=== PATIENT | male | born 1965 | race Caucasian/White ===

== ENCOUNTER 2020-07-20 13:52 | Inpatient (IN) | payer OTHER ==
[2020-07-20] MEDS ORDERED: NA CHLORIDE 0.9% 3,000 ML ONE (15:13)
[2020-07-20] MEDS ORDERED: dexAMETHasone 10 MG/ML VIAL ONE (15:13)
[2020-07-20] MEDS ORDERED: LEVALBUTEROL 1.25 MG/3 ML NEB ONE (15:13)
[2020-07-20] MEDS ORDERED: NA CHLORIDE 0.9% 500 ML ONE (15:13)
--- NOTE | 2020-07-20 15:38 | RAD REPORT ---
EXAM DESCRIPTION: RAD - Chest Single View - 07/20/2020 3:13 pm CLINICAL HISTORY: SOB COMPARISON: August 2010 TECHNIQUE: AP portable chest image was obtained 07/20/2020 3:13 pm . FINDINGS: No focal mass or consolidations seen. Lung base interstitial pattern is increased over the comparison. This could be interstitial edema, infiltrate or progressive fibrotic lung disease over t he long interval since 2011 comparison. Hilar regions are not clearly different. Heart and vasculatur e are normal. No measurable pleural effusion and no pneumothorax. No acute bony abnormality seen. No acute aortic findings suspected. IMPRESSION: Bilateral increased interstitial opacification compared to 2011. Given the long interval, current findings could represent acute interstitial edema, acute interstitia l infiltrate, progressive fibrotic change or a combination.
[2020-07-20 16:04] LABS: Absolute Lymphocytes (CBC) 2.7 K/uL (0.7-4.9); Basophils % 1.2 % (0-1.3); Hematocrit 47.2 % (39.6-49.0); Lymphocytes % 20.2 % (15.3-44.8); MPV 10.1 fL (7.6-11.3); RBC Red Blood Cell Count 5.08 M/uL (4.33-5.43)
[2020-07-20 16:17] LABS: Urine Blood 2+ (Negative); Urine Glucose 3+ (Negative); Urine Protein 2+ (Negative); Urine pH 6.5 (5.0-7.0)
[2020-07-20 16:20] LABS: Protime INR 0.97
[2020-07-20 16:37] LABS: ALT/SGPT 34 U/L (12-78); AST/SGOT 23 U/L (15-37); Albumin 2.7 g/dL (3.4-5.0); Alkaline Phosphatase 164 U/L (45-117); Amylase 38 U/L (25-115); BUN Blood Urea Nitrogen 14 mg/dL (7-18); Bicarbonate 32 mmol/L (21-32); Bilirubin Direct < 0.1 mg/dL (0-0.2); Bilirubin Total 0.4 mg/dL (0.2-1.0); CKMB Creatine Kinase MB 2.2 ng/mL (1.0-3.6); Creatine Phosphokinase 77 U/L (39-308); Lipase 86 U/L (73-393); Potassium 4.2 mmol/L (3.5-5.1); Protein, Total 7.9 g/dL (6.4-8.2); Sodium Level 139 mmol/L (136-145); Troponin (Emerg Dept Use Only) 0.03 ng/mL (0.0-0.045)
[2020-07-20 16:40] LABS: Glucose Level 434 mg/dL (74-106)
[2020-07-20 17:05] LABS: Urine Bacteria <20 /HPF (NONE SEEN); Urine Mucus 1+ /HPF (NONE SEEN)
--- NOTE | 2020-07-20 18:41 | EDPHYS ---
Physician Documentation [facility] Name: Ernesto Lara Age: 55 yrs Sex: Male : 1965 Arrival Date: 07/20/2020 Time: 13:55 Bed 8 Private MD: ED Physician Momo Kang HPI: 07/20 18:32 This 55 yrs old Male presents to ER via Wheelchair with complaints of jmm Breathing Difficulty. 18:32 The patient has shortness of breath at rest. Onset: The symptoms/episode began/occurred jmm gradually, 2 week(s) ago. Duration: The symptoms are continuous. The patient's shortness of breath is aggravated by light activity, is alleviated by nothing. Associated signs and symptoms: Pertinent negatives: fever. This is a 55 year old male with a history of bronchitis that presents to the ED with complaints of shortness of breath wheezing progressively worsening over the past 2 weeks. Denies fever. . Historical: - Allergies: 14:30 No Known Allergies; aa5 - Home Meds: 14:30 None [Active]; aa5 - PMHx: 14:30 Bronchitis; aa5 - PSHx: 14:30 Reconstructive surgery to right leg, left foot, and left shoulder; aa5 - Immunization history:: Adult Immunizations unknown. - Social history:: Smoking status: Patient reports the use of cigarette tobacco products, smokes one pack cigarettes per day. ROS: 18:32 Constitutional: Negative for fever, chills, and weight loss, Cardiovascular: Negative jmm for chest pain, palpitations, and edema. 18:32 Respiratory: Positive for cough, shortness of breath, wheezing. 18:32 All other systems are negative. Exam: 18:32 Constitutional: This is a well developed, well nourished patient who is awake, alert, jmm and in no acute distress. Head/Face: atraumatic. Eyes: EOMI, no conjunctival erythema appreciated ENT: Moist Mucus Membranes Neck: Trachea midline, Supple Chest/axilla: Normal chest wall appearance and motion. Cardiovascular: Regular rate and rhythm. No edema appreciated 18:32 Abdomen/GI: Non distended, soft Back: Normal ROM Skin: General appearance color normal MS/ Extremity: Moves all extremities, no obvious deformities appreciated, no edema noted to the lower extremities Neuro: Awake and alert, normal gait Psych: Behavior is normal, Mood is normal, Patient is cooperative and pleasant 18:32 Respiratory: moderate respiratory distress is noted, Respirations: labored breathing, that is moderate, Breath sounds: wheezing: is heard diffusely. Vital Signs: 14:00 Pulse 108; Resp 26 S; Temp 98.5(O); Pulse Ox 90% on R/A; aa5 14:01 Pulse Ox 2 lpm NC; aa5 14:30 Pulse Ox 96% on 2 lpm NC; aa5 14:30 BP 113 / 83; Weight 108.86 kg (R); Height 5 ft. 11 in. (180.34 cm) (R); Pain 3/10; aa5 15:00 BP 113 / 83; Pulse 88; Resp 20; Pulse Ox 94% on 2 lpm NC; kg 16:00 BP 121 / 92; Pulse 91; Resp 20; Pulse Ox 94% on 2 lpm NC; kg 17:00 BP 126 / 78; Pulse 92; Resp 20; Pulse Ox 90% on 2 lpm NC; kg 18:00 BP 109 / 77; Pulse 87; Resp 20; Pulse Ox 92% on 2 lpm NC; kg 19:00 BP 124 / 93; Pulse 73; Resp 20; Pulse Ox 91% on 2 lpm NC; kg 20:00 BP 103 / 71; Pulse 114; Resp 20; Pulse Ox 94% on 2 lpm NC; ad5 21:00 BP 114 / 97; Pulse 113; Resp 20; Pulse Ox 93% on 2 lpm NC; ad5 22:00 BP 99 / 82; Pulse 113; Resp 20; Pulse Ox 93% on 2 lpm NC; ad5 23:00 BP 130 / 94; Pulse 116; Resp 20; Pulse Ox 97% on 2 lpm NC; ad5 0602 00:00 BP 111 / 77; Pulse 110; Resp 20; Pulse Ox 96% on 2 lpm NC; ad5 07/20 14:30 Body Mass Index 33.47 (108.86 kg, 180.34 cm) aa5 MDM: 07/20 14:40 Patient medically screened. fernando 18:35 Data reviewed: vital signs, nurses notes. Counseling: I had a detailed discussion with yani the patient and/or guardian regarding: the historical points, exam findings, and any diagnostic results supporting the discharge/admit diagnosis, lab results, radiology results, the need for further work-up and treatment in the hospital. ED course: I discussed the patient with Ray Tran whom accepted the patient to Dr. Stroud's service. . 07/20 14:36 Order name: Amylase, Serum; Complete Time: 16:50 [facility] 07/20 14:36 Order name: Basic Metabolic Panel; Complete Time: 16:50 [facility] 07/20 14:36 Order name: Blood Culture Adult (2) [facility] 07/20 14:36 Order name: CBC with Diff; Complete Time: 16:12 [facility] 07/20 14:36 Order name: Ckmb; Complete Time: 16:50 [facility] 07/20 14:36 Order name: CPK; Complete Time: 16:50 [facility] 07/20 14:36 Order name: Lactate; Complete Time: 15:20 [facility] 07/20 14:36 Order name: LFT's; Complete Time: 16:50 [facility] 07/20 14:36 Order name: Lipase; Complete Time: 16:50 [facility] 07/20 14:36 Order name: Procalcitonin; Complete Time: 16:19 [facility] 07/20 14:36 Order name: Protime (+inr); Complete Time: 16:25 [facility] 07/20 14:36 Order name: Ptt, Activated; Complete Time: 16:25 [facility] 07/20 14:36 Order name: Troponin (emerg Dept Use Only); Complete Time: 16:50 [facility] 07/20 14:36 Order name: Urine Microscopic Only; Complete Time: 17:07 [facility] 07/20 14:36 Order name: Chest Single View XRAY; Complete Time: 15:46 [facility] 07/20 14:36 Order name: Accucheck; Complete Time: 18:49 [facility] 07/20 14:36 Order name: Cardiac monitoring; Complete Time: 18:49 [facility] 07/20 16:18 Order name: Urine Dipstick-Ancillary; Complete Time: 16:19 [facility] 07/20 17:50 Order name: SARS-COV-2 RT PCR; Complete Time: 17:55 [facility] 07/20 20:49 Order name: CONS Physician Consult [facility] 07/20 20:54 Order name: Glucose, Ancillary Testing [facility] 07/20 23:31 Order name: Glucose, Ancillary Testing [facility] 07/21 00:01 Order name: Hemoglobin A1c [facility] 07/21 00:35 Order name: Glucose Level [facility] 07/21 00:55 Order name: Glucose, Ancillary Testing [facility] 07/21 01:43 Order name: Glucose Level [facility] 07/20 14:36 Order name: EKG - Nurse/Tech; Complete Time: 18:50 [facility] 07/20 14:36 Order name: IV Saline Lock - Large Bore; Complete Time: 18:50 [facility] 07/20 14:36 Order name: Labs collected and sent; Complete Time: 18:50 [facility] 07/20 14:36 Order name: O2 Per Protocol; Complete Time: 18:50 [facility] 07/20 14:36 Order name: O2 Sat Monitoring; Complete Time: 18:50 [facility] 07/20 14:36 Order name: Urine Dipstick-Ancillary (obtain specimen); Complete Time: 18:50 [facility] 07/20 16:58 Order name: Misc. Order: ambulate, o2; Complete Time: 18:18 jmm Administered Medications: 15:00 Drug: NS 0.9% (30 ml/kg) 30 ml/kg Route: IV; Rate: bolus; Site: right antecubital; kg 17:30 Follow up: Response: No adverse reaction; IV Status: Completed infusion; IV Intake: kg 3200ml 15:00 Drug: Decadron - Dexamethasone 10 mg Route: IVP; Site: right antecubital; kg 18:18 Follow up: Response: No adverse reaction; Marked relief of symptoms kg 15:00 Drug: Xopenex (levalbuterol) (3) 1.25 mg Route: Inhalation; kg 18:18 Follow up: Response: No adverse reaction; Marked relief of symptoms kg Disposition: 07/21 07:26 Co-signature as Attending Physician, Momo Kang MD I agree with the assessment and fernando plan of care. Disposition: 07/20/20 18:40 Hospitalization ordered by Pablo Stroud for Observation. Preliminary diagnosis are Chronic obstructive pulmonary disease with (acute) exacerbation, Hyperglycemia, unspecified. - Bed requested for Telemetry/MedSurg (observation). - Status is Observation. jb4 - Condition is Stable. - Problem is new. - Symptoms are unchanged. Signatures: Dispatcher [employer] Momo Ervin MD MD cha Mickail, Joel, PA PA Glenda Titus RN RN aa5 Kristi Bella RN RN Marcellus Velasquez RN RN jb4 Ivy Gonsalez kg Corrections: (The following items were deleted from the chart) 07/20 17:00 14:38 CORONAVIRUS+Z ordered. EDIN EDIN 23:47 18:40 Hospitalization Ordered by Pablo Stroud for Observation. Preliminary diagnosis cg is Chronic obstructive pulmonary disease with (acute) exacerbation; Hyperglycemia, unspecified. Bed requested for Telemetry/MedSurg (observation). Status is Observation. Condition is Stable. Problem is new. Symptoms are unchanged. [facility] 07/21 01:45 06 23:47 07/20/2020 18:40 Hospitalization Ordered by Pablo Stroud for Observation. jb4 Preliminary diagnosis is Chronic obstructive pulmonary disease with (acute) exacerbation; Hyperglycemia, unspecified. Bed requested for Telemetry/MedSurg (observation). Status is Observation. Condition is Stable. Problem is new. Symptoms are unchanged. cg
--- NOTE | 2020-07-20 18:41 | ER ---
Nurse's Notes [facility] Name: Ernesto Lara Age: 55 yrs Sex: Male : 1965 Arrival Date: 07/20/2020 Time: 13:55 Bed 8 Private MD: Diagnosis: Chronic obstructive pulmonary disease with (acute) exacerbation;Hyperglycemia, unspecified Presentation: 07/20 14:00 Chief complaint: Patient states: SOB "for weeks but got worse yesterday". Pt also aa5 reports productive cough. 14:00 Coronavirus screen: cough unrelated to allergies, shortness of breath. Ebola Screen: aa5 Patient negative for fever greater than or equal to 101.5 degrees Fahrenheit, and additional compatible Ebola Virus Disease symptoms. Initial Sepsis Screen: Does the patient meet any 2 criteria? RR > 20 per min. HR > 90 bpm. Yes Does the patient have a suspected source of infection? Yes: Productive cough/pneumonia. Risk Assessment: Do you want to hurt yourself or someone else? Patient reports no desire to harm self or others. Onset of symptoms was June 2020. 14:00 Acuity: ROJELIO 2 aa5 14:00 Method Of Arrival: Wheelchair aa5 Triage Assessment: 17:06 Respiratory: Reports shortness of breath at rest on exertion air hunger labored kg breathing Onset: The symptoms/episode began/occurred this morning, the patient has moderate shortness of breath. Historical: - Allergies: 14:30 No Known Allergies; aa5 - Home Meds: 14:30 None [Active]; aa5 - PMHx: 14:30 Bronchitis; aa5 - PSHx: 14:30 Reconstructive surgery to right leg, left foot, and left shoulder; aa5 - Immunization history:: Adult Immunizations unknown. - Social history:: Smoking status: Patient reports the use of cigarette tobacco products, smokes one pack cigarettes per day. Screenin:20 Abuse screen: Denies threats or abuse. Denies injuries from another. Nutritional kg screening: No deficits noted. Tuberculosis screening: No symptoms or risk factors identified. Fall Risk None identified. Fall in past 12 months (25 points). Secondary diagnosis (15 points) IV access (20 points). Ambulatory Aid- None/Bed Rest/Nurse Assist (0 pts). Gait- Normal/Bed Rest/Wheelchair (0 pts) Mental Status- Oriented to own ability (0 pts). Total Le Fall Scale indicates No Risk (0-24 pts). Assessment: 17:02 General: Appears distressed, Behavior is calm, cooperative, appropriate for age, quiet. kg Pain: Denies pain. Neuro: No deficits noted. Cardiovascular: Heart tones S1 S2 Murmur present Capillary refill < 3 seconds Clubbing of nail beds is present Pulses are all present. Rhythm is regular. Respiratory: Airway is patent Respiratory effort is labored, with retractions, using tripod position, Breath sounds are coarse bilaterally. Breath sounds with rales bilaterally. GI: No deficits noted. : No deficits noted. EENT: No deficits noted. Derm: No deficits noted. Musculoskeletal: No deficits noted. 19:00 Reassessment: Patient appears in no apparent distress at this time. Patient and/or ad5 family updated on plan of care and expected duration. Pain level reassessed. Patient is alert, oriented x 3, equal unlabored respirations, skin warm/dry/pink. 20:00 Reassessment: Patient appears in no apparent distress at this time. No changes from ad5 previously documented assessment. 21:30 Reassessment: Patient appears in no apparent distress at this time. Patient and/or ad5 family updated on plan of care and expected duration. Pain level reassessed. 22:30 Reassessment: Patient appears in no apparent distress at this time. Patient is alert, ad5 oriented x 3, equal unlabored respirations, skin warm/dry/pink. 23:30 Reassessment: Patient and/or family updated on plan of care and expected duration. Pain ad5 level reassessed. Patient is alert, oriented x 3, equal unlabored respirations, skin warm/dry/pink. Pt updated to plan of care, admission orders checked at this time. Vital Signs: 14:00 Pulse 108; Resp 26 S; Temp 98.5(O); Pulse Ox 90% on R/A; aa5 14:01 Pulse Ox 2 lpm NC; aa5 14:30 Pulse Ox 96% on 2 lpm NC; aa5 14:30 BP 113 / 83; Weight 108.86 kg (R); Height 5 ft. 11 in. (180.34 cm) (R); Pain 3/10; aa5 15:00 BP 113 / 83; Pulse 88; Resp 20; Pulse Ox 94% on 2 lpm NC; kg 16:00 BP 121 / 92; Pulse 91; Resp 20; Pulse Ox 94% on 2 lpm NC; kg 17:00 BP 126 / 78; Pulse 92; Resp 20; Pulse Ox 90% on 2 lpm NC; kg 18:00 BP 109 / 77; Pulse 87; Resp 20; Pulse Ox 92% on 2 lpm NC; kg 19:00 BP 124 / 93; Pulse 73; Resp 20; Pulse Ox 91% on 2 lpm NC; kg 20:00 BP 103 / 71; Pulse 114; Resp 20; Pulse Ox 94% on 2 lpm NC; ad5 21:00 BP 114 / 97; Pulse 113; Resp 20; Pulse Ox 93% on 2 lpm NC; ad5 22:00 BP 99 / 82; Pulse 113; Resp 20; Pulse Ox 93% on 2 lpm NC; ad5 23:00 BP 130 / 94; Pulse 116; Resp 20; Pulse Ox 97% on 2 lpm NC; ad5 07/21 00:00 BP 111 / 77; Pulse 110; Resp 20; Pulse Ox 96% on 2 lpm NC; ad5 07/20 14:30 Body Mass Index 33.47 (108.86 kg, 180.34 cm) aa5 ED Course: 07/20 13:55 Patient arrived in ED. mr 14:00 Arm band placed on. aa5 14:32 Patient placed in an exam room, on a stretcher. aa5 14:35 Pawan Ambrose PA is PHCP. [facility] 14:35 Momo Kang MD is Attending Physician. [facility] 14:35 Triage completed. aa5 14:47 Ivy Gonsalez is Primary Nurse. kg 15:00 Inserted saline lock: 20 gauge in right antecubital area, using aseptic technique. kg 15:13 Chest Single View XRAY In Process Unspecified. EDMS 17:08 Patient has correct armband on for positive identification. Bed in low position. Side kg rails up X2. 18:38 Pablo Stroud is Hospitalizing Provider. jmm Administered Medications: 15:00 Drug: NS 0.9% (30 ml/kg) 30 ml/kg Route: IV; Rate: bolus; Site: right antecubital; kg 17:30 Follow up: Response: No adverse reaction; IV Status: Completed infusion; IV Intake: kg 3200ml 15:00 Drug: Decadron - Dexamethasone 10 mg Route: IVP; Site: right antecubital; kg 18:18 Follow up: Response: No adverse reaction; Marked relief of symptoms kg 15:00 Drug: Xopenex (levalbuterol) (3) 1.25 mg Route: Inhalation; kg 18:18 Follow up: Response: No adverse reaction; Marked relief of symptoms kg Intake: 17:30 IV: 3200ml; Total: 3200ml. kg Outcome: 18:40 Decision to Hospitalize by Provider. yani 07/21 00:09 Condition: stable ad5 01:45 Patient left the ED. jb4 Signatures: Dispatcher [employer] EDMS Pawan Ambrose PA PA jmm Rivera, Mary mr Glenda Kuo, RN RN aa5 Marcellus Faria RN RN jb4 Ivy Gonsalez kg, Andrea ad5 Corrections: (The following items were deleted from the chart) 07/20 14:35 14:32 Arm band placed on Patient placed in an exam room, on a stretcher, 5 aa5 14:56 14:30 108.86 kg Reported; Height 5 ft. 11 in. Reported; BMI: 33.4; Pain 3/10; aa5 aa5
[2020-07-20] MEDS ORDERED: INSULIN -REGULAR HUMAN 50 UNIT/0.5 ML ML SQ SCH (22:49)
[2020-07-20] MEDS ORDERED: ZOLPIDEM TARTRATE 5 MG TABLET PO PRN (22:49)
[2020-07-20] MEDS ORDERED: ACETAMINOPHEN 500 MG TAB PO PRN (22:49)
[2020-07-20] MEDS ORDERED: ALBUTEROL 2.5 MG/3 ML NEB SOL NEB PRN (22:49)
[2020-07-20] MEDS ORDERED: NA CHLORIDE 0.9% 1,000 ML IV SCH (22:49)
[2020-07-20] MEDS ORDERED: Levofloxacin 750mg IV 750 MG/150 ML BAG IV SCH (23:00)
[2020-07-20] MEDS ORDERED: INSULIN -REGULAR HUMAN 50 UNIT/0.5 ML ML ONE (23:16)
[2020-07-20] MEDS ORDERED: NA CHLORIDE 0.9% 1,000 ML ONE (23:18)
[2020-07-20] MEDS ORDERED: Levofloxacin 750mg IV 750 MG/150 ML BAG IV ONE (23:18)
[2020-07-20] MEDS ORDERED: BENZONATATE 100 MG CAP PO ONE (23:48)
[2020-07-21] MEDS ORDERED: ALBUTEROL 2.5 MG/3 ML NEB SOL ONE
[2020-07-21] MEDS: BENZONATATE 100 MG CAP PO PRN ×3 (00:05→16:14)
[2020-07-21] MEDS ORDERED: MORPHINE 2 MG/ML SYR ONE (00:06)
[2020-07-21] MEDS ORDERED: ONDANSETRON 4 MG/2 ML VIAL ONE (00:06)
[2020-07-21] MEDS: ONDANSETRON 4 MG/2 ML VIAL IV PRN ×2 (00:10→12:25)
[2020-07-21] MEDS: MORPHINE 2 MG/ML SYR IV PRN ×2 (00:10→12:23)
[2020-07-21] MEDS: IPRATROPIUM BROM 0.5MG/2.5ML NEB SCH ×4 (02:15→19:45)
[2020-07-21] MEDS ORDERED: GLUCAGON 1 MG/VIAL IM PRN ×2 (02:20→08:28)
[2020-07-21] MEDS ORDERED: INSULIN -REGULAR HUMAN 50 UNIT/0.5 ML ML SQ ONE ×2 (02:20→04:43)
[2020-07-21] MEDS ORDERED: D50W 25 GM/50 ML SYRINGE IV PRN ×2 (02:20→08:28)
--- NOTE | 2020-07-21 04:38 | P.HP ---
Certification for Inpatient Patient admitted to: Inpatient With expected LOS: >2 Midnights Patient will require the following post-hospital care: None Practitioner: I am a practitioner with admitting privileges, knowledge of patient current condition, hospital course, and medical plan of care. Services: Services provided to patient in accordance with Admission requirements found in Title 42 Section 412.3 of the Code of Federal Regulations Patient History Date of Service: 07/21/20 Reason for admission: copd exacerbation, new DM dx History of Present Illness: Mr. Lara is a 55 yo M who presents with 2 weeks of worsening SOB, [place]. He also reports lightheadedness, cough productive of yellow sputum, wheezing, fatigue, fever and pleuritic pain. Denies chest pain, N/V/D. Reports mild relief with robitussin. Worsening of symptoms with walking. This is the first occurrence of these symptoms. He smokes 1/2ppd. His brother and mother both had exposure to asbestosis which he believes he was exposed to as well. Found to havee an elevated BG >500 with no dx of DM. A1c returned at 11.7. WBC 13.1. Cr 1.46, GFR 50. glu 434. alk phos 164. Alb 2.7. Allergies pseudoephedrine [From Actifed] Adverse Reaction (Verified 07/21/20 01:44) knock me out triprolidine [From Actifed] Adverse Reaction (Verified 07/21/20 01:44) knock me out - Past Medical/Surgical History Diabetic: Yes -: T2DM -: leg reconstruction - Family History Mother Notes: asbestosis Brother Notes: asbestosis - Social History Smoking Status: Current every day smoker Alcohol use: Yes CD- Drugs: No Caffeine use: No Place of Residence: Home Review of Systems 10-point ROS is otherwise unremarkable Physical Examination - Vital Signs Temperature: 97.1 F Blood Pressure: 111/77 Pulse: 110 Respirations: 20 Pulse Ox (%): 94 - Physical Exam General: Alert, In no apparent distress, Oriented x3, Cooperative HEENT: Atraumatic, Normocephalic, PERRLA, Mucous membr. moist/pink, EOMI, Sclerae nonicteric Neck: Supple, 2+ carotid pulse no bruit, JVD not distended, No Thyromegaly, No LAD Respiratory: Diminished, Expiratory wheezes Cardiovascular: No edema, Normal pulses, Regular rate/rhythm, Normal S1 S2, No gallops, No rubs, No murmurs Capillary refill: <2 Seconds Gastrointestinal: Normal bowel sounds, Soft and benign, Non-distended, No ascites, No tenderness, No masses, No rebound, No guarding Musculoskeletal: No clubbing, No swelling, No contractures, No erythema, No tenderness, No warmth Integumentary: No rashes, No breakdown, No significant lesion, No tenderness/swelling, No erythema, No warmth, No cyanosis Neurological: Normal speech, Normal strength at 5/5 x4 extr, Normal tone, Sensation intact, Cranial nerves 3-12 intact, Normal affect Lymphatics: No axilla or inguinal lymphadenopathy - Studies Laboratory Data (last 24 hrs) 07/20/20 15:50: PT 11.2, INR 0.97, APTT 29.4 07/20/20 15:50: WBC 13.10 H, Hgb 15.1, Hct 47.2, Plt Count 208 07/20/20 15:50: Sodium 139, Potassium 4.2, BUN 14, Creatinine 1.46 H, Glucose 434 H*, Total Bilirubin 0.4, AST 23, ALT 34, Alkaline Phosphatase 164 H, Amylase 38, Lipase 86 Assessment and Plan - Plan Assessment COPD exacerbation New diagnosis of T2DM, A1c 11.7 ANATOLY Plan pulm consulted continue IV antibiotics, O2 as needed, breathing treatments will hold steroids until BG is under control sputum culture pending mild sliding scale, Accuchecks will need education on home insulin continue with IVF hydration and monitor Cr Discharge Plan: Home Plan to discharge in: 24 Hours - Advance Directives Does patient have a Living Will: No Does patient have a Durable POA for Healthcare: No - Code Status/Comfort Care Code Status Assessed: Yes (full code) Critical Care: No Time Spent Managing Pts Care (In Minutes): 70
[2020-07-21 04:44] LABS: Absolute Lymphocytes (CBC) 0.9 K/uL (0.7-4.9); Basophils % 0.3 % (0-1.3); Hematocrit 46.1 % (39.6-49.0); Lymphocytes % 7.3 % (15.3-44.8); MPV 10.2 fL (7.6-11.3); RBC Red Blood Cell Count 4.88 M/uL (4.33-5.43)
[2020-07-21 04:51] LABS: Urine Appearance CLEAR (Clear); Urine Bilirubin NEGATIVE (Negative); Urine Blood TRACE (Negative); Urine Color YELLOW (Yellow); Urine Glucose 3+ (Negative); Urine Protein TRACE (Negative); Urine Specific Gravity >=1.030 (1.005-1.030); Urine Urobilinogen 0.2 mg/dL (0.2-1.0)
[2020-07-21 04:55] LABS: Urine Microscopic Reflex ORDER UMIC
[2020-07-21 05:07] LABS: Albumin 2.6 g/dL (3.4-5.0); Bilirubin Total 0.3 mg/dL (0.2-1.0); Magnesium 2.1 mg/dL (1.8-2.4); Potassium 5.5 mmol/L (3.5-5.1); Protein, Total 7.1 g/dL (6.4-8.2); Thyroid Stimulating Hormone 0.707 uIU/mL (0.360-3.740)
[2020-07-21 05:24] LABS: Blood Morphology Comment NOT SEEN (NOT SEEN); Platelet Estimate ADEQ
[2020-07-21 05:34] LABS: Urine Bacteria <20 /HPF (NONE SEEN); Urine Urothelial Cells <5 /HPF (NONE SEEN)
[2020-07-21] MEDS: ALBUTEROL 2.5 MG/3 ML NEB SOL NEB SCH ×3 (09:00→19:45)
[2020-07-21] MEDS: ENOXAPARIN 40 MG/0.4 ML SQ SCH (09:00)
[2020-07-21] MEDS: METFORMIN HCL 500 MG TAB PO SCH ×2 (09:25→16:15)
[2020-07-21] MEDS: AMOX/K CLAV 500 MG TAB PO SCH ×2 (09:33→20:58)
[2020-07-21] MEDS: INSULIN -REGULAR HUMAN 50 UNIT/0.5 ML ML SQ SCH ×4 (09:33→20:58)
[2020-07-21] MEDS: INSULIN 70/30 100 UNITS/ML SQ SCH ×2 (09:34→16:15)
--- NOTE | 2020-07-21 11:57 | EKG ---
Test Date: 2020-07-20 Test Time: 15:23:25 Outside Sales Representative: BRADLEY MEASUREMENT RESULTS: Intervals: Rate: 113 HI: 154 QRSD: 82 QT: 354 QTc: 485 [place]: P: -7 HI: 154 QRS: -64 T: 125 INTERPRETIVE STATEMENTS: Undetermined rhythm Left axis deviation Anterior infarct, age undetermined Abnormal ECG Compared to ECG 09/02/2010 22:29:55 Left-axis deviation now present Myocardial infarct finding now present Sinus rhythm no longer present Electronically Signed On 07-21-20 11:53:54 CDT by Pal Pisano
--- NOTE | 2020-07-21 12:09 | P.CNS ---
Date of Consult: 07/21/20 Reason for Consult: COPD exacerbation Chief Complaint: copd exacerbation, new DM dx History of Present Illness: Patient is 55 years of age a heavy smoker history of presume COPD is not take any medications at home does not follow up with any doctors became worse over the past week more shortness of breath coughing wheezing came here to the emergency room diagnosed with COPD Allergies pseudoephedrine [From Actifed] Adverse Reaction (Verified 07/21/20 01:44) knock me out triprolidine [From Actifed] Adverse Reaction (Verified 07/21/20 01:44) knock me out - Past Medical/Surgical History Diabetic: Yes -: T2DM -: bronchitis -: leg reconstruction -: sx on right leg -: sx left foot -: sx left side of the body - Family History Mother Notes: asbestosis Brother Notes: asbestosis - Social History Smoking Status: Current every day smoker Alcohol use: Yes CD- Drugs: No Caffeine use: No Place of Residence: Home Review of Systems General: Weakness Respiratory: Cough, Shortness of Breath Physical Examination Temp Pulse Resp BP Pulse Ox 97.8 F 108 H 17 110/66 96 07/21/20 08:00 07/21/20 08:00 07/21/20 08:00 07/21/20 08:00 07/21/20 08:00 General: Alert, In no apparent distress, Oriented x3 Respiratory: Expiratory wheezes Cardiovascular: No edema, Regular rate/rhythm Laboratory Data (last 24 hrs) 07/20/20 15:50: PT 11.2, INR 0.97, APTT 29.4 07/20/20 15:50: WBC 13.10 H, Hgb 15.1, Hct 47.2, Plt Count 208 07/20/20 15:50: Sodium 139, Potassium 4.2, BUN 14, Creatinine 1.46 H, Glucose 434 H*, Total Bilirubin 0.4, AST 23, ALT 34, Alkaline Phosphatase 164 H, Amylase 38, Lipase 86 - Problems (1) COPD exacerbation Current Visit: Yes Status: Acute Plan: Patient is 55 years of age heavy smoker admitted with COPD exacerbation COPD on chest x-ray mildly elevated white count recommend discharging the patient nebulize bronchodilator he prefers to have nebulize albuterol ipratropium at home labs reviewed Consul not to smoke advice to follow-up with me in 2 weeks he a long-acting bronchodilator at home I have put in some Augmentin (2) Diabetes Current Visit: Yes Status: Acute Plan: Patient is 55 years of age newly diagnosed diabetes a hemoglobin A1c is about 11 agree with the use of insulin also has renal insufficiency is also need to be an an VANE-inhibitor Qualifiers: Diabetes mellitus type: other specified (including POORNIMA)
[2020-07-21] MEDS: NICOTINE 21 MG/PAT TD SCH (12:21)
--- NOTE | 2020-07-21 19:25 | P.PN ---
Subjective Date of Service: 07/21/20 Chief Complaint: copd exacerbation, new DM dx Patient reports feeling much better today compared to yesterday. He is maintained on 3 L of oxygen by nasal cannula. Blood sugar remained elevated. Hemoglobin A1c is 11. Physical Examination - Vital Signs Temperature: 98.0 F Blood Pressure: 91/69 Pulse: 98 Respirations: 19 Pulse Ox (%): 95 - Physical Exam General: Alert, In no apparent distress, Oriented x3 HEENT: Mucous membr. moist/pink Respiratory: Normal air movement, Expiratory wheezes (Bilateral scattered wheezes) Cardiovascular: No edema, Regular rate/rhythm, Normal S1 S2, No murmurs Capillary refill: <2 Seconds Gastrointestinal: Normal bowel sounds, Soft and benign, Non-distended, No tenderness Musculoskeletal: No swelling, No tenderness Integumentary: No rashes, No erythema Neurological: Normal strength at 5/5 x4 extr, Cranial nerves 3-12 intact Assessment And Plan - Current Problems (Diagnosis) (1) COPD exacerbation Current Visit: Yes Status: Acute (2) Diabetes Current Visit: Yes Status: Acute Qualifiers: Diabetes mellitus type: other specified (including POORNIMA) - Plan Continue scheduled bronchodilators. Antibiotics Pulmonary input appreciated. Patient started on Novolin 70/30. Titrate. Continue insulin sliding scale. Nicotine patch. Smoking cessation advised. Weaned off oxygen as tolerated.
[2020-07-22] MEDS: ALBUTEROL 2.5 MG/3 ML NEB SOL NEB SCH ×4 (01:10→19:30)
[2020-07-22] MEDS: IPRATROPIUM BROM 0.5MG/2.5ML NEB SCH ×4 (01:10→19:30)
[2020-07-22] MEDS: MORPHINE 2 MG/ML SYR IV PRN ×3 (05:37→20:43)
[2020-07-22 06:22] LABS: Absolute Lymphocytes (CBC) 3.4 K/uL (0.7-4.9); Basophils % 0.5 % (0-1.3); Hematocrit 47.5 % (39.6-49.0); Lymphocytes % 21.7 % (15.3-44.8); MPV 10.2 fL (7.6-11.3); RBC Red Blood Cell Count 5.05 M/uL (4.33-5.43)
[2020-07-22 06:34] LABS: Potassium 4.2 mmol/L (3.5-5.1)
[2020-07-22] MEDS: INSULIN -REGULAR HUMAN 50 UNIT/0.5 ML ML SQ SCH ×4 (08:25→20:36)
[2020-07-22] MEDS: INSULIN 70/30 100 UNITS/ML SQ SCH ×2 (08:25→16:21)
[2020-07-22] MEDS: ENOXAPARIN 40 MG/0.4 ML SQ SCH (08:26)
[2020-07-22] MEDS: NICOTINE 21 MG/PAT TD SCH (08:26)
[2020-07-22] MEDS: AMOX/K CLAV 500 MG TAB PO SCH ×2 (08:26→20:36)
[2020-07-22] MEDS: METFORMIN HCL 500 MG TAB PO SCH ×2 (08:26→16:21)
[2020-07-22] MEDS ORDERED: POLYETHYL GLY 3350 17 GM/DOSE PO PRN (09:30)
[2020-07-22] MEDS: DOCUSATE NA/SENNA CONC 1 TAB PO SCH ×2 (12:26→20:36)
--- NOTE | 2020-07-22 12:41 | P.PN ---
Subjective Date of Service: 07/22/20 Chief Complaint: copd exacerbation, new DM dx Patient reports progressive improvement in his shortness of breath. He is tolerating 2 L oxygen by nasal cannula. Blood sugar readings have improved. Patient is ambulatory. Physical Examination - Vital Signs Temperature: 97.4 F Blood Pressure: 120/76 Pulse: 111 Respirations: 20 Pulse Ox (%): 96 - Physical Exam General: Alert, In no apparent distress, Oriented x3 HEENT: Mucous membr. moist/pink Neck: JVD not distended Respiratory: Diminished, Expiratory wheezes (Bilateral) Cardiovascular: No edema, Normal S1 S2, Other (Tachycardia) Gastrointestinal: Normal bowel sounds, Soft and benign, Non-distended, No tenderness Musculoskeletal: No swelling Integumentary: No rashes Neurological: Normal strength at 5/5 x4 extr Assessment And Plan - Current Problems (Diagnosis) (1) COPD exacerbation Current Visit: Yes Status: Acute (2) Diabetes Current Visit: Yes Status: Acute Qualifiers: Diabetes mellitus type: other specified (including POORNIMA) - Plan Continue scheduled bronchodilators. Continue Augmentin Pulmonary is following Novolin 70/30 and insulin sliding scale. Nicotine patch. Start oral prednisone and wean off oxygen as possible.
[2020-07-22] MEDS: predniSONE 20 MG TAB PO SCH (13:35)
[2020-07-22] MEDS ORDERED: D50W 25 GM/50 ML VIAL IV PRN (14:00)
[2020-07-23] MEDS: ALBUTEROL 2.5 MG/3 ML NEB SOL NEB SCH ×2 (01:10→08:33)
[2020-07-23] MEDS: IPRATROPIUM BROM 0.5MG/2.5ML NEB SCH ×2 (01:10→08:33)
[2020-07-23 06:13] LABS: Potassium 4.8 mmol/L (3.5-5.1)
[2020-07-23 06:18] LABS: Absolute Lymphocytes (CBC) 1.4 K/uL (0.7-4.9); Basophils % 0.2 % (0-1.3); Hematocrit 43.5 % (39.6-49.0); Lymphocytes % 12.1 % (15.3-44.8); MPV 10.3 fL (7.6-11.3); RBC Red Blood Cell Count 4.68 M/uL (4.33-5.43)
[2020-07-23 06:25] VITALS: BMI 28.7
[2020-07-23] MEDS: MORPHINE 2 MG/ML SYR IV PRN (07:53)
[2020-07-23] MEDS: BENZONATATE 100 MG CAP PO PRN (07:53)
[2020-07-23] MEDS: DOCUSATE NA/SENNA CONC 1 TAB PO SCH (07:53)
[2020-07-23] MEDS: AMOX/K CLAV 500 MG TAB PO SCH (07:53)
[2020-07-23] MEDS: METFORMIN HCL 500 MG TAB PO SCH (07:53)
[2020-07-23] MEDS: ENOXAPARIN 40 MG/0.4 ML SQ SCH (07:54)
[2020-07-23] MEDS: NICOTINE 21 MG/PAT TD SCH (07:54)
[2020-07-23] MEDS: predniSONE 20 MG TAB PO SCH (07:54)
[2020-07-23] MEDS: INSULIN 70/30 100 UNITS/ML SQ SCH (07:55)
[2020-07-23] MEDS: INSULIN -REGULAR HUMAN 50 UNIT/0.5 ML ML SQ SCH ×2 (07:57→11:30)
[2020-07-23 12:04] VITALS: O2SAT 94
--- NOTE | 2020-07-23 12:16 | P.DS ---
Admission Date: 07/20/20 Discharge Date: 07/23/20 Disposition: ROUTINE DISCHARGE Discharge Condition: FAIR Reason for Admission: copd exacerbation, new DM dx - Problems (1) COPD exacerbation Status: Acute (2) Diabetes Status: Acute Qualifiers: Diabetes mellitus type: other specified (including POORNIMA) Brief History of Present Illness: 55-year-old gentleman with no known past medical history presented to the emergency department with a complaint of progressive worsening shortness of breath of 2 weeks duration. Patient reported he had never experienced these symptoms before. Blood work in the ED showed hyperglycemia with blood glucose greater than 500. Patient never diagnosed with diabetes. Chest x-ray in the ED demonstrated bilateral increased interstitial opacities. Was wheezing on examination. He was hospitalized for further management of COPD exacerbation. Hospital Course: Patient admitted to the medical floor and treated for COPD exacerbation with scheduled bronchodilators, oral prednisone and augmentin. He was also started on Novolin 70/30 and insulin sliding scale to manage his hyperglycemia. His hemoglobin A1c is 11.7. He clinically improved with treatment. Patient was initially requiring oxygen, but was weaned off oxygen to room air. He did not qualify for home oxygen. His symptoms have resolved patient is ambulating without shortness of breath. He is discharged to continue antibiotics, oral prednisone and insulin therapy for glucose management. Vital Signs/Physical Exam: Temp Pulse Resp BP Pulse Ox 97.2 F 98 H 17 94/66 97 07/23/20 08:00 07/23/20 08:00 07/23/20 08:23 07/23/20 08:00 07/23/20 08:23 General: Alert, In no apparent distress, Oriented x3 HEENT: Mucous membr. moist/pink Neck: Supple, JVD not distended Respiratory: Clear to auscultation bilaterally, Normal air movement Cardiovascular: No edema, Regular rate/rhythm, Normal S1 S2 Gastrointestinal: Soft and benign, Non-distended, No tenderness Musculoskeletal: No swelling, No tenderness Integumentary: No rashes Neurological: Normal strength at 5/5 x4 extr Laboratory Data at Discharge: WBC 11.70 K/uL (4.3-10.9) H D 07/23/20 05:36 Hgb 14.1 g/dL (13.6-17.9) 07/23/20 05:36 Hct 43.5 % (39.6-49.0) 07/23/20 05:36 Plt Count 183 K/uL (152-406) 07/23/20 05:36 PT 11.2 SECONDS (9.5-12.5) 07/20/20 15:50 INR 0.97 07/20/20 15:50 APTT 29.4 SECONDS (24.3-36.9) 07/20/20 15:50 Sodium 140 mmol/L (136-145) 07/23/20 05:36 Potassium 4.8 mmol/L (3.5-5.1) 07/23/20 05:36 BUN 26 mg/dL (7-18) H 07/23/20 05:36 Creatinine 1.50 mg/dL (0.55-1.3) H 07/23/20 05:36 Glucose 301 mg/dL (74-106) H 07/23/20 05:36 Phosphorus 4.0 mg/dL (2.5-4.9) 07/21/20 04:25 Magnesium 2.1 mg/dL (1.8-2.4) 07/21/20 04:25 Total Bilirubin 0.3 mg/dL (0.2-1.0) 07/21/20 04:25 AST 23 U/L (15-37) 07/21/20 04:25 ALT 39 U/L (12-78) 07/21/20 04:25 Alkaline Phosphatase 133 U/L (45-117) H 07/21/20 04:25 Triglycerides 70 mg/dL (<150) 07/21/20 04:25 Cholesterol 202 mg/dL (<200) H 07/21/20 04:25 HDL Cholesterol 71 mg/dL (40-60) H 07/21/20 04:25 Cholesterol/HDL Ratio 2.85 07/21/20 04:25 Amylase 38 U/L (25-115) 07/20/20 15:50 Lipase 86 U/L (73-393) 07/20/20 15:50 Home Medications: Albuterol Inhaler [Ventolin Inhaler*] 2 puff IH TID PRN 07/22/20 Alcohol Antiseptic Pads [Alcohol Swabs] 1 each TP TID #100 med..pad 07/23/20 Amox/Clavulanate [Augmentin 500-125 mg Tab*] 500 mg PO BID #10 tab 07/23/20 Benzonatate [Tessalon Perle*] 100 mg PO TID PRN #30 cap 07/23/20 Blood Sugar Diagnostic [Glucose Test Strip] 1 each MC TID #100 strip 07/23/20 Blood-Glucose Meter [Contour] 1 each MC TID #1 kit 07/23/20 Fluticasone/Salmeterol [Advair 250-50 Diskus] 1 each IH BID #60 blst.w.dev 07/23/20 Insulin NPH Hum/Reg Insulin Hm [Novolin 70-30 Flexpen] 15 unit SQ BID #1 insuln.pen 07/23/20 Lancets [Lancets Ultra Thin] 1 each MC TID #100 each 07/23/20 Metformin HCl [Glucophage*] 500 mg PO BIDWM #60 tab 07/23/20 Polyethyl Gly 3350 [Glycolax*] 17 gm PO DAILY PRN #30 udbot 07/23/20 predniSONE [Prednisone*] 40 mg PO DAILY #5 tab 07/23/20 New Medications: Fluticasone/Salmeterol [Advair 250-50 Diskus] 1 each IH BID #60 blst.w.dev Alcohol Antiseptic Pads [Alcohol Swabs] 1 each TID #100 med..pad Amox/Clavulanate [Augmentin 500-125 mg Tab*] 500 mg PO BID #10 tab Blood-Glucose Meter [Contour] 1 each MC TID #1 kit Metformin HCl [Glucophage*] 500 mg PO BIDWM #60 tab Blood Sugar Diagnostic [Glucose Test Strip] 1 each TID #100 strip Polyethyl Gly 3350 [Glycolax*] 17 gm PO DAILY PRN #30 udbot PRN Reason: Constipation Lancets [Lancets Ultra Thin] 1 each MC TID #100 each Insulin NPH Hum/Reg Insulin Hm [Novolin 70-30 Flexpen] 15 unit SQ BID #1 insuln.pen predniSONE [Prednisone*] 40 mg PO DAILY #5 tab Benzonatate [Tessalon Perle*] 100 mg PO TID PRN #30 cap PRN Reason: Cough Physician Discharge Instructions: PROBLEM: COPD GOAL: Clear understanding of disease process INSTRUCTIONS: Diet: diabetic Activity: as tolerated If you have any questions regarding your stay call [phone] If your symptoms worsen call 911 or go to the ED. Diet: ADA Activity: Ad mikala Followup: Dharmesh Linder MD [ACTIVE - CAN ADMIT] - 1-2 Weeks (Call to make an appo intment. ) NONE,NONE [Primary Care Provider] - 1-2 Weeks Time spent managing pt's care (in minutes): 33
[2020-07-23 14:20] VITALS: BP 119/78; TEMP 97.7
== END 2020-07-23 13:23 | disposition home or self-care (01) | DRG 192 ==
LOC: ER 13:52 → ERHOLD 20:49 → 2ND 07-21 00:39
PROVIDERS: ADMIT Internal Medicine; ATTEND Internal Medicine
DX: J44.1 Chronic obstructive pulmonary disease with (acute) exacerbation (principal); E11.65 Type 2 diabetes mellitus with hyperglycemia; N18.30 Chronic kidney disease, stage 3 unspecified; F17.210 Nicotine dependence, cigarettes, uncomplicated; Z20.822 Contact with and (suspected) exposure to COVID-19
CPT/HCPCS: 36415; 71045; 80048; 80053; 80061; 80076; 81003; 81015; 82150; 82550; 82553; 82947; 83036; 83605; 83690; 83735; 84100; 84145; 84439; 84443; 84484; 85025; 85610; 85730; 87040; 87070; 87205; 93005; 94640; 94760; 96365; 96366; 96375; 99284; J1100; J1650; J1815; J2270; J2405; J7030; J7040; J7512; U0003

== ENCOUNTER 2020-11-26 14:12 | Inpatient (IN) | payer OTHER ==
[2020-11-26 15:11] LABS: Absolute Lymphocytes (CBC) 2.3 K/uL (0.7-4.9); Basophils % 0.8 % (0-1.3); Hematocrit 46.5 % (39.6-49.0); Lymphocytes % 13.3 % (15.3-44.8); MPV 9.1 fL (7.6-11.3); RBC Red Blood Cell Count 5.15 M/uL (4.33-5.43)
[2020-11-26 15:15] LABS: Protime INR 1.07
[2020-11-26] MEDS ORDERED: METHYLPREDNISOLONE 125 MG INJ ONE (15:15)
[2020-11-26 15:19] LABS: Potassium 4.3 mmol/L (3.5-5.1); Troponin (Emerg Dept Use Only) 0.04 ng/mL (0.0-0.045)
[2020-11-26] MEDS ORDERED: FUROSEMIDE 40 MG/4 ML VIAL ONE (15:51)
[2020-11-26] MEDS ORDERED: LEVALBUTEROL 1.25 MG/3 ML NEB ONE ×2 (15:51→19:52)
[2020-11-26] MEDS ORDERED: MAGNESIUM SULFATE 1 gm IVPB 1 GM/100 ML BAG IV ONE (15:51)
--- NOTE | 2020-11-26 15:59 | RAD REPORT ---
EXAM DESCRIPTION: Carola Single View11/26/2020 3:38 pm CLINICAL HISTORY: Shortness of breath COMPARISON: July 2020 FINDINGS: No significant change in mild bilateral pulmonary opacities. The heart remains enlarged IMPRESSION: Mild bilateral pulmonary opacities may indicate interstitial pulmonary edema
--- NOTE | 2020-11-26 16:29 | EDPHYS ---
Physician Documentation [facility] Name: Ernesto Lara Age: 55 yrs Sex: Male : 1965 Arrival Date: 11/26/2020 Time: 14:14 Bed 23 Private MD: ED Physician Leodan Nicholson HPI: 11/26 16:17 This 55 yrs old Male presents to ER via Wheelchair with complaints of rn Breathing Difficulty. 16:18 The patient has shortness of breath at rest, with light activity. rn 16:21 Onset: The symptoms/episode began/occurred 2 day(s) ago. Duration: The symptoms are rn continuous. The patient's shortness of breath is aggravated by exertion, light activity, talking, walking. Associated signs and symptoms: Pertinent positives: non-productive cough, Pertinent negatives: fever, hemoptysis. Severity of symptoms: At their worst the symptoms were moderate in the emergency department the symptoms are unchanged. The patient has experienced similar episodes in the past. The patient has not recently seen a physician. Patient reports increased shortness of breath over the last 2 days, has COPD and diabetes. 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 Denies hemoptysis. Reports breathing treatments helped for a little bit but then shortness of breath returns. No fever.. Historical: - Allergies: 14:24 Pseudoephedrine; ll1 14:24 triprolidine; ll1 - PMHx: 14:24 Bronchitis; Diabetes mellitus; Hypertensive disorder; ll1 14:24 copd; mass L lung; ll1 - PSHx: 14:24 None; ll1 - Immunization history:: Client reports having NOT received the Covid vaccine. - Social history:: Smoking status: Patient reports the use of cigarette tobacco products, smokes one-half pack cigarettes per day. - Family history:: not pertinent. - Hospitalizations: : No recent hospitalization is reported. ROS: 16:21 Constitutional: Negative for fever, chills, and weight loss, Eyes: Negative for injury, rn pain, redness, and discharge, Cardiovascular: Negative for palpitations, positive for edema Respiratory: Negative for wheezing, and pleuritic chest pain, Abdomen/GI: Negative for abdominal pain, nausea, vomiting, diarrhea, and constipation, Back: Negative for injury and pain, : Positive for difficulty urinating MS/Extremity: Positive swelling to bilateral lower extremities Skin: Negative for injury, rash, and discoloration, Neuro: Negative for headache, numbness, tingling, and seizure. Exam: 16:21 Constitutional: This is a well developed, well nourished patient who is awake, alert, rn tachypneic Head/Face: Normocephalic, atraumatic. Eyes: Periorbital areas with no swelling, redness, or edema. Cardiovascular: Tachycardic, regular. No pulse deficits. Respiratory: Moderate tachypnea with bibasilar crackles and faint wheezing Abdomen/GI: Soft, pitting edema of abdomen as well as lower back Skin: Warm, dry MS/ Extremity: 2+ pitting edema bilateral lower extremities with equal circumference Neuro: Awake and alert, GCS 15 16:21 ECG was reviewed by the Attending Physician. rn Vital Signs: 14:00 BP 123 / 88; Pulse 113; Resp 38; Pulse Ox 94% on 3 lpm NC; oh 14:21 BP 126 / 98; Pulse 114; Resp 30; Temp 97.2; Pulse Ox 94% on R/A; Weight 112.49 kg; ll1 Height 5 ft. 11 in. (180.34 cm); Pain 8/10; 16:00 BP 141 / 90; Pulse 111; Resp 30; Pulse Ox 96% on 3 lpm NC; oh 18:00 BP 153 / 95; Pulse 113; Resp 31; Pulse Ox 97% on 3 lpm NC; oh 19:30 BP 142 / 82; Pulse 108; Resp 20; Temp 97.9; Pulse Ox 95% on 15% Nebulizer Mask; Pain dc2 6/10; 14:21 Body Mass Index 34.59 (112.49 kg, 180.34 cm) ll1 MDM: 14:26 Patient medically screened. rn 16:21 Differential diagnosis: Anxiety Reaction CHF exacerbation, Chronic Obstructive rn Pulmonary Disease Myocardial Infarction pneumonia, Pneumothorax pulmonary edema, reactive airway disease. Data reviewed: vital signs, nurses notes, lab test result(s), EKG, radiologic studies, plain films, and as a result, I will admit patient. Data interpreted: court monitor: rate is 105 beats/min, rhythm is sinus tachycardia, with no ectopy, Interpretation: tachycardia, Pulse oximetry: on room air is 94 %. Interpretation: acceptable. Test interpretation: by ED physician or midlevel provider: ECG, plain radiologic studies, Chest x-ray shows mild pulmonary edema both lungs . Counseling: I had a detailed discussion with the patient and/or guardian regarding: the historical points, exam findings, and any diagnostic results supporting the discharge/admit diagnosis, lab results, radiology results, the need for further work-up and treatment in the hospital. Response to treatment: the patient's symptoms have mildly improved after treatment, and as a result, I will admit patient. Admission orders: after a detailed discussion of the patient's condition and case, the admit orders are written by me. 11/26 14:39 Order name: BMP; Complete Time: 15:32 rn 11/26 14:39 Order name: Blood Culture Adult (2) rn 11/26 14:39 Order name: CBC with Diff; Complete Time: 15:32 rn 11/26 14:39 Order name: NT PRO-BNP; Complete Time: 15:32 rn 11/26 14:39 Order name: PT-INR; Complete Time: 15:32 rn 11/26 14:39 Order name: Ptt, Activated; Complete Time: 15:32 rn 11/26 14:39 Order name: Troponin (emerg Dept Use Only); Complete Time: 15:32 rn 11/26 14:39 Order name: XRAY CXR (1 view); Complete Time: 16:05 rn 11/26 15:23 Order name: COVID-19 : Document "Date of Symptom Onset" if Symptomatic. rn 11/26 16:45 Order name: Sputum Culture rn 11/26 19:57 Order name: SARS-COV-2 RT PCR EDVT 11/26 14:39 Order name: EKG; Complete Time: 14:40 rn 11/26 14:39 Order name: Cardiac monitoring; Complete Time: 14:55 rn 11/26 14:39 Order name: EKG - Nurse/Tech; Complete Time: 14:56 rn 11/26 14:39 Order name: IV Saline Lock; Complete Time: 14:56 rn 11/26 14:39 Order name: Labs collected and sent; Complete Time: 14:56 rn 11/26 14:39 Order name: O2 Per Protocol; Complete Time: 14:56 rn 11/26 14:39 Order name: O2 Sat Monitoring; Complete Time: 14:56 rn 11/26 16:16 Order name: Hernández; Complete Time: 17:57 rn EC:21 Rate is 111 beats/min. Rhythm is regular. QRS [place] is Normal. [place] interval is normal. rn QRS interval is normal. QT interval is normal. No Q waves. T waves are Normal. No ST changes noted. Clinical impression: Sinus tachycardia. Interpreted by me. Reviewed by me. Administered Medications: 14:49 Drug: SOLU-Medrol (methylPrednisoLONE) 125 mg Route: IVP; Site: right antecubital; oh 15:24 Drug: Xopenex (levalbuterol) (3) 1.25 mg Route: Inhalation; oh 15:24 Drug: Lasix (furosemide) 40 mg Route: IVP; Site: right antecubital; oh 15:25 Drug: Magnesium Sulfate 1 grams Route: IVPB; Infused Over: 1 hrs; Site: right oh antecubital; 18:45 Drug: Nicotine Patch 21 mg/24 hr 1 patches Route: Transdermal; Site: affected area; oh Disposition: 16:21 Critical Care:. rn Disposition Summary: 11/26/20 16:29 Hospitalization Ordered Hospitalization Status: Inpatient Admission rn Provider: Merle Ward rn Location: Telemetry/MedSur (Inpatient) rn Condition: Stable rn Problem: an ongoing problem rn Symptoms: have improved rn Bed/Room Type: Standard rn Room Assignment: 229(11/26/20 20:01) Diagnosis - COPD/ Chronic obstructive pulmonary disease with (acute) exacerbation rn - Acute pulmonary edema rn Kristan Lopez rn Forms: - Medication Reconciliation Form rn - SBAR form director learning and development time excluding procedures: 16:21 Critical care time: Bedside Care: 30 minutes, Consultation: 5 minutes. Total time: 35 rn minutes Signatures: Dispatcher [employer] Radhika Pichardo RN RN mw Leodan Nicholson MD MD rn Lewis, Lynsay, RN RN Jayesh Muñoz Oneka RN RN oh Corrections: (The following items were deleted from the chart) 20:01 16:29 rn reuben
--- NOTE | 2020-11-26 16:29 | ER ---
Nurse's Notes [facility] Name: Ernesto Lara Age: 55 yrs Sex: Male : 1965 Arrival Date: 11/26/2020 Time: 14:14 Bed 23 Private MD: Diagnosis: COPD/ Chronic obstructive pulmonary disease with (acute) exacerbation;Acute pulmonary edema;Anasarca Presentation: 11/26 14:21 Chief complaint: Patient states: SOB for 3+ months since last admission. High blood ll1 sugar off/on for 2 days. 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 Coronavirus screen: Vaccine status: Patient reports being unvaccinated. Client denies travel out of the [place] in the last 14 days. difficulty breathing, shortness of breath, Client presents with at least one sign or symptom that may indicate coronavirus-19. Standard/surgical mask placed on the client. Ebola Screen: Patient denies travel to an Ebola-affected area in the 21 days before illness onset. Initial Sepsis Screen: Does the patient meet any 2 criteria? RR > 20 per min. HR > 90 bpm. No. Patient's initial sepsis screen is negative. Does the patient have a suspected source of infection? Yes: Productive cough/pneumonia. Risk Assessment: Do you want to hurt yourself or someone else? Patient reports no desire to harm self or others. Onset of symptoms was September 02, 2020. 14:21 Method Of Arrival: Wheelchair ll1 14:21 Acuity: ROJELIO 2 ll1 Triage Assessment: 18:01 Respiratory: the patient has severe shortness of breath. oh 18:02 General: Appears distressed, Behavior is cooperative, appropriate for age. oh 18:02 Respiratory: Reports shortness of breath. oh 18:02 Respiratory: Onset: The symptoms/episode began/occurred 3-4 days. oh 20:43 Pain: Complains of pain in Penis from the waters catheter. dc2 Historical: - Allergies: 14:24 Pseudoephedrine; ll1 14:24 triprolidine; ll1 - PMHx: 14:24 Bronchitis; Diabetes mellitus; Hypertensive disorder; ll1 14:24 copd; mass L lung; ll1 - PSHx: 14:24 None; ll1 - Immunization history:: Client reports having NOT received the Covid vaccine. - Social history:: Smoking status: Patient reports the use of cigarette tobacco products, smokes one-half pack cigarettes per day. - Family history:: not pertinent. - Hospitalizations: : No recent hospitalization is reported. Screenin:01 Abuse screen: Denies threats or abuse. Nutritional screening: No deficits noted. oh Tuberculosis screening: No symptoms or risk factors identified. Fall Risk None identified. Assessment: 17:58 General: Reports SOB at rest and worsening on exertion, hx of fluid retention. oh Cardiovascular: Rhythm is sinus tachycardia. Respiratory: Airway is patent Respiratory effort is labored, using tripod position, Breath sounds with rhonchi Breath sounds with wheezes bilaterally. 19:20 Reassessment: Pt sitting up in bed, pt is very angry. CO asking for respirtory dc2 treatment for several hours. States that no one has checked his sugar and he wants 3 - 85mg of aspirin. He states he normally takes this 2x day. Will have to call provider for order. VSS, 600 ml clear yellow urine emptied at this time. 19:27 Reassessment: Respiratory treatment given at this time Informed pt I will call provide dc2 re aspirin. 19:43 Reassessment: Hospitalist Ray called for aspirin that pt requested, states to dc2 reconcile meds and she will then order after this is completed. 20:38 Reassessment: Registration called for [facility] pt going to room 229. dc2 20:55 Reassessment: Nursing report called to [facility] for room 229. Irvin Narvaez made aware dc2 and will bring to floor when he can. Vital Signs: 14:00 BP 123 / 88; Pulse 113; Resp 38; Pulse Ox 94% on 3 lpm NC; oh 14:21 BP 126 / 98; Pulse 114; Resp 30; Temp 97.2; Pulse Ox 94% on R/A; Weight 112.49 kg; ll1 Height 5 ft. 11 in. (180.34 cm); Pain 8/10; 16:00 BP 141 / 90; Pulse 111; Resp 30; Pulse Ox 96% on 3 lpm NC; oh 18:00 BP 153 / 95; Pulse 113; Resp 31; Pulse Ox 97% on 3 lpm NC; oh 19:30 BP 142 / 82; Pulse 108; Resp 20; Temp 97.9; Pulse Ox 95% on 15% Nebulizer Mask; Pain dc2 6/10; 14:21 Body Mass Index 34.59 (112.49 kg, 180.34 cm) ll1 ED Course: 14:14 Patient arrived in ED. rg4 14:24 Triage completed. ll1 14:25 Leodan Nicholson MD is Attending Physician. rn 14:25 Arm band placed on. ll1 14:33 Jake Broussard, NANNETTE is Primary Nurse. oh 15:35 Inserted saline lock: 20 gauge in right antecubital area, using aseptic technique. oh Blood collected. 15:37 XRAY CXR (1 view) In Process Unspecified. EDMS 15:40 Blood Culture Adult (2) Sent. oh 15:50 Bed in low position. Call light in reach. Side rails up X2. oh 15:57 COVID-19 : Document "Date of Symptom Onset" if Symptomatic. Sent. oh 16:28 Merle Ward MD is Hospitalizing Provider. rn 18:02 Waters cath inserted, using sterile technique, 16 Fr., by mt, balloon inflated, to oh gravity drainage, clamped. 18:45 Sputum Culture Sent. oh 20:40 No provider procedures requiring assistance completed. dc2 20:41 Maintain EMS IV. Dressing intact. Site clean \\T\\ dry. Gauge \\T\\ site: 20 g right AC. dc 2 Administered Medications: 14:49 Drug: SOLU-Medrol (methylPrednisoLONE) 125 mg Route: IVP; Site: right antecubital; oh 15:24 Drug: Xopenex (levalbuterol) (3) 1.25 mg Route: Inhalation; oh 15:24 Drug: Lasix (furosemide) 40 mg Route: IVP; Site: right antecubital; oh 15:25 Drug: Magnesium Sulfate 1 grams Route: IVPB; Infused Over: 1 hrs; Site: right oh antecubital; 18:45 Drug: Nicotine Patch 21 mg/24 hr 1 patches Route: Transdermal; Site: affected area; oh Outcome: 16:29 Decision to Hospitalize by Provider. rn 20:40 Condition: stable dc2 20:41 Admitted to Med/surg accompanied by tech, via stretcher, with oxygen. dc2 21:24 Patient left the ED. dc2 Signatures: Dispatcher [employer] EDMS Leodan Nicholson MD MD rn Garcia, Rubi rg4 Vanessa Miramontes RN RN 1 Kaity Lopez RN RN dc2 Jake Broussard, RN RN oh
--- NOTE | 2020-11-26 17:19 | P.HP ---
Certification for Inpatient Patient admitted to: Inpatient With expected LOS: >2 Midnights Patient will require the following post-hospital care: None Practitioner: I am a practitioner with admitting privileges, knowledge of patient current condition, hospital course, and medical plan of care. Services: Services provided to patient in accordance with Admission requirements found in Title 42 Section 412.3 of the Code of Federal Regulations Patient History Date of Service: 11/26/20 Primary Care Provider: None Reason for admission: Dyspnea r/t COPD vs CHF History of Present Illness: Chest Single View11/26/2020 3:38 pm CLINICAL HISTORY: Shortness of breath COMPARISON: July 2020 FINDINGS: No significant change in mild bilateral pulmonary opacities. The heart remains enlarged IMPRESSION: Mild bilateral pulmonary opacities may indicate interstitial pulmonary edema Labs are remarkable for a white blood count of 17.4, blood sugar of 205. BUN is 23 and the creatinine is 1.42. His troponin was 0.04 and the BNP was 7590. Monitor shows a sinus rhythm with a rate of about 111. His respiratory rate is in the high 30s his O2 sat is 97% with facemask. The patient has a history of COPD and some form of mass in his left lung that has not been evaluated. He was seen in July for shortness of breath but did not have any edema at that time. Since he was discharged the fluid has gradually accumulated. 2 days ago he began to have significant difficulty breathing and moving around. He has had what was a nonproductive cough at home and chest pain from coughing. He noticed that he had pitting edema of his legs. He states that he has had difficulty urinating at home. He also mentioned that his abdomen was getting tight. Recently he has had some difficulty swallowing. 2 days ago he was very dyspneic and stated that he felt like he was hallucinating at times. Any effort brought on a feeling of dyspnea. Because he was aware that his dyspnea was worsening on a daily basis he felt he needed to come to the emergency room. On arrival it was noted that he was tachypneic and dyspneic. He had significant pitting edema both lower extremities and ascites. He is resting on the stretcher with O2 but still has a respiratory rate in the 30s. Allergies pseudoephedrine [From Actifed] Adverse Reaction (Verified 07/21/20 01:44) knock me out triprolidine [From Actifed] Adverse Reaction (Verified 07/21/20 01:44) knock me out Home medications list reviewed: Yes Home Medications: Albuterol Inhaler [Ventolin Inhaler*] 2 puff IH TID PRN 07/22/20 Alcohol Antiseptic Pads [Alcohol Swabs] 1 each TP TID #100 med..pad 07/23/20 Amox/Clavulanate [Augmentin 500-125 mg Tab*] 500 mg PO BID #10 tab 07/23/20 Benzonatate [Tessalon Perle*] 100 mg PO TID PRN #30 cap 07/23/20 Blood Sugar Diagnostic [Glucose Test Strip] 1 each MC TID #100 strip 07/23/20 Blood-Glucose Meter [Contour] 1 each MC TID #1 kit 07/23/20 Fluticasone/Salmeterol [Advair 250-50 Diskus] 1 each IH BID #60 blst.w.dev 07/23/20 Insulin NPH Hum/Reg Insulin Hm [Novolin 70-30 Flexpen] 15 unit SQ BID #1 insuln.pen 07/23/20 Lancets [Lancets Ultra Thin] 1 each MC TID #100 each 07/23/20 Metformin HCl [Glucophage*] 500 mg PO BIDWM #60 tab 07/23/20 Polyethyl Gly 3350 [Glycolax*] 17 gm PO DAILY PRN #30 udbot 07/23/20 predniSONE [Prednisone*] 40 mg PO DAILY #5 tab 07/23/20 Amox/Clavulanate [Augmentin 500-125 mg Tab] 500 mg PO BID 5 Days #10 tab 07/24/20 Fluticasone/Salmeterol [Advair 250-50 Diskus] 1 each IH BID 30 Days #60 blst.w.dev 07/24/20 - Past Medical/Surgical History Diabetic: Yes -: T2DM -: bronchitis -: CHF -: leg reconstruction -: sx on right leg -: sx left foot -: sx left side of the body Psychosocial/ Personal History: Unemployed due to back pain. Lives at home with . - Family History Mother -: Cancer Notes: asbestosis Brother -: Diabetes, Cancer Notes: asbestosis Father -: Diabetes - Social History Smoking Status: Heavy Tobacco smoker (>10 cigarettes/day) Alcohol use: Yes CD- Drugs: No Caffeine use: No Place of Residence: Home Review of Systems 10-point ROS is otherwise unremarkable General: Sweats, Weakness Eyes: Unremarkable ENT: Other (dysphagia) Respiratory: Cough, Shortness of Breath, SOB with Excertion, Wheezing Gastrointestinal: Other (ascites) Genitourinary: Retention Musculoskeletal: Unremarkable Integumentary: Other (edema) Neurological: Weakness, Confusion (Intermittent) Lymphatics: Unremarkable Physical Examination - Physical Exam General: Alert, Oriented x3, Moderate distress HEENT: Atraumatic, Normocephalic, PERRLA Neck: Supple, JVD not distended Respiratory: Crackles/rales, Expiratory wheezes, Inspiratory wheezes Cardiovascular: Normal pulses, Regular rate/rhythm Capillary refill: <2 Seconds Gastrointestinal: Distended, Ascites Musculoskeletal: Swelling Integumentary: No rashes Neurological: Normal speech, Normal strength at 5/5 x4 extr, Normal tone Urinary: Hernández catheter External genitalia: Deferred Rectal: Deferred - Studies Laboratory Data (last 24 hrs) 11/26/20 14:44: PT 12.3, INR 1.07, APTT 30.6 11/26/20 14:44: WBC 17.40 H, Hgb 14.8, Hct 46.5, Plt Count 205 11/26/20 14:44: Sodium 143, Potassium 4.3, BUN 23 H, Creatinine 1.42 H, Glucose 147 H Assessment and Plan - Plan Assessment: Dyspnea COPD Pulmonary Edema Ascites/ Pitting edema Urinary Retention Diabetes Plan: Dyspnea: O2 titrated to 93%, diuresis, Bedrest/BSC until less tachypnea COPD: Steroids, Breathing treatments Q6 hrs. Pulmonary Edema: Lasix 40mg bid IV Ascites/ Pitting edema: Diuresis, I&O, Daily weights Urinary Retention: Hernández catheter, continue flomax Diabetes: Continue Home medication, Sliding Scale DVT PPx: Lovenox 40mg SQ CODE STATUS: Full Code Discharge Plan: Home Plan to discharge in: Unknown - Advance Directives Does patient have a Living Will: No Does patient have a Durable POA for Healthcare: No - Code Status/Comfort Care Code Status Assessed: Yes Code Status: Full Code Critical Care: No Time Spent Managing Pts Care (In Minutes): 70
[2020-11-26] MEDS ORDERED: NICOTINE 21 MG/PAT TD ONE (18:57)
[2020-11-26] MEDS ORDERED: LEVALBUTEROL 0.63 MG/3 ML NEB ONE (19:52)
[2020-11-26] MEDS: IPRATROPIUM BROM 0.5MG/2.5ML NEB SCH (21:33)
[2020-11-26] MEDS ORDERED: ONDANSETRON 4 MG/2 ML VIAL IV PRN (21:33)
[2020-11-26] MEDS ORDERED: D50W 25 GM/50 ML SYRINGE IV PRN (21:33)
[2020-11-26] MEDS ORDERED: ACETAMINOPHEN 500 MG TAB PO PRN (21:33)
[2020-11-26] MEDS ORDERED: GLUCAGON 1 MG/VIAL IM PRN (21:33)
[2020-11-26] MEDS ORDERED: ASPIRIN EC 81 MG TAB PO ONE (21:40)
[2020-11-26] MEDS: Levofloxacin 750mg IV 750 MG/150 ML BAG IV SCH (22:17)
[2020-11-26] MEDS: INSULIN -REGULAR HUMAN 50 UNIT/0.5 ML ML SQ SCH (22:18)
[2020-11-26 22:28] VITALS: BMI 66.6
[2020-11-26] MEDS: HYDROCODONE/APAP 5/325 MG TAB PO PRN (23:55)
[2020-11-26] MEDS: METHYLPREDNISOLONE 40 MG INJ IV SCH (23:55)
[2020-11-27] MEDS: ALBUTEROL 2.5 MG/3 ML NEB SOL NEB PRN (01:22)
[2020-11-27] MEDS: IPRATROPIUM BROM 0.5MG/2.5ML NEB SCH ×4 (01:22→20:00)
[2020-11-27 03:53] LABS: RBC Red Blood Cell Count 5.32 M/uL (4.33-5.43)
[2020-11-27 04:09] LABS: Absolute Lymphocytes (CBC) 0.6 K/uL (0.7-4.9); Basophils % 0.2 % (0-1.3); Hematocrit 48.7 % (39.6-49.0); Lymphocytes % 3.6 % (15.3-44.8); MPV 9.6 fL (7.6-11.3)
[2020-11-27 04:11] LABS: Bilirubin Total 0.5 mg/dL (0.2-1.0); Magnesium 2.2 mg/dL (1.8-2.4); Potassium 5.3 mmol/L (3.5-5.1)
[2020-11-27 04:40] LABS: Urine Appearance CLEAR (Clear); Urine Bilirubin NEGATIVE (Negative); Urine Blood 2+ (Negative); Urine Color YELLOW (Yellow); Urine Glucose 2+ (Negative); Urine Protein 2+ (Negative); Urine Specific Gravity 1.025 (1.005-1.030)
[2020-11-27 05:13] LABS: Urine Microscopic Reflex ORDER UMIC
[2020-11-27] MEDS: METHYLPREDNISOLONE 40 MG INJ IV SCH ×3 (05:58→17:13)
[2020-11-27 06:23] LABS: Urine Bacteria 20-50 /HPF (NONE SEEN)
[2020-11-27 06:24] LABS: Urine Mucus 2+ /HPF (NONE SEEN); Urine Yeast MANY (NONE SEEN)
[2020-11-27] MEDS ORDERED: INSULIN 70/30 100 UNITS/ML SQ SCH (07:30)
[2020-11-27] MEDS: INSULIN -REGULAR HUMAN 50 UNIT/0.5 ML ML SQ SCH ×5 (08:11→21:00)
[2020-11-27] MEDS: ASPIRIN EC 81 MG TAB PO SCH (08:12)
[2020-11-27] MEDS: ENOXAPARIN 40 MG/0.4 ML SQ SCH (08:13)
[2020-11-27] MEDS: FUROSEMIDE 40 MG/4 ML VIAL IV SCH ×2 (08:13→17:12)
[2020-11-27] MEDS: HYDROCODONE/APAP 5/325 MG TAB PO PRN ×4 (08:22→21:45)
[2020-11-27] MEDS ORDERED: TAMSULOSIN 0.4 MG SR CAP PO SCH (09:00)
[2020-11-27] MEDS: NICOTINE 21 MG/PAT TD SCH (12:50)
--- NOTE | 2020-11-27 14:22 | P.PN ---
Subjective Date of Service: 11/27/20 Primary Care Provider: None Chief Complaint: Dyspnea r/t COPD vs CHF Patient reports shortness of breath. Generalized body pains. State the scrotal edema is improving. He is maintained on 3-4 L oxygen by nasal cannula. Physical Examination - Vital Signs Temperature: 98.1 F Blood Pressure: 109/90 Pulse: 105 Respirations: 18 Pulse Ox (%): 97 - Physical Exam General: Alert, In no apparent distress, Oriented x3 HEENT: Mucous membr. moist/pink Neck: JVD not distended Respiratory: Other (Mild bibasilar crackles. No wheezes) Cardiovascular: Normal S1 S2, Other (Tachycardia), Edema (Bilateral legs) Gastrointestinal: Normal bowel sounds, Soft and benign, Distended, Ascites Musculoskeletal: No erythema, Swelling (Bilateral legs) Integumentary: No rashes Neurological: Normal strength at 5/5 x4 extr, Cranial nerves 3-12 intact External genitalia: Other (Scrotal edema) - Studies Laboratory Data (last 24 hrs) 11/26/20 14:44: PT 12.3, INR 1.07, APTT 30.6 11/26/20 14:44: WBC 17.40 H, Hgb 14.8, Hct 46.5, Plt Count 205 11/26/20 14:44: Sodium 143, Potassium 4.3, BUN 23 H, Creatinine 1.42 H, Glucose 147 H Assessment And Plan - Current Problems (Diagnosis) (1) Acute respiratory failure with hypoxia Current Visit: Yes Status: Acute (2) Anasarca Current Visit: Yes Status: Acute (3) Diabetes Current Visit: No Status: Acute Qualifiers: Diabetes mellitus type: other specified (including POORNIMA) (4) Chronic kidney disease, stage 3 Current Visit: Yes Status: Acute (5) Urinary tract infection Current Visit: Yes Status: Acute - Plan Continue IV Lasix. Obtain echocardiogram. Intake and output monitoring. Troponin negative. Cause of anasarca is unclear. Will obtain CT abdomen and pelvis and chest. Fluid restriction. Patient with hyperglycemia. Titrating Novolin 70/30. Continue antibiotics for UTI and COPD exacerbation. Scheduled bronchodilators.
[2020-11-27] MEDS ORDERED: D50W 25 GM/50 ML VIAL IV PRN (15:00)
--- NOTE | 2020-11-27 15:28 | RAD REPORT ---
EXAM DESCRIPTION: CT - CT CHEST,ABD,PELVIS W/O - 11/27/2020 3:08 pm CLINICAL HISTORY: Chest and abdomen pain. [place]-New onset COMPARISON: No comparisons TECHNIQUE: A limited noncontrast study was performed. All CT scans are performed using dose optimization technique as appropriate and may include automated exposure control or mA/KV adjustment according to patient size. FINDINGS: Mild linear atelectasis is present in both lung bases. The lungs are otherwise clear.No pl eural or pericardial effusion.Upper limit of normal lymph nodes are seen in the mediastinum. Liver size is mildly prominent. Spleen, pancreas, adrenal glands and left kidney are within normal li mits for noncontrast study. Calculi are present in the right kidney, largest inferior right kidney me asuring 10 mm without hydronephrosis. Mild ascites is noted. No bowel obstruction or free air. Normal appendix. Mild sigmoid diverticulosis . No pathologic lymphadenopathy in the abdomen or pelvis. Mild anasarca and scrotal hydroceles seen. Old left-sided rib fractures are seen. Mild lower lumbar degenerative changes. IMPRESSION: Mild hepatomegaly. Mild ascites. Right nephrolithiasis without hydronephrosis. Mild anasarca.
[2020-11-27] MEDS: INSULIN 70/30 100 UNITS/ML SQ SCH (17:12)
[2020-11-27] MEDS: SPIRONOLACTONE 25 MG TABLET PO SCH (21:46)
[2020-11-27] MEDS: Levofloxacin 750mg IV 750 MG/150 ML BAG IV SCH (21:47)
[2020-11-28] MEDS: IPRATROPIUM BROM 0.5MG/2.5ML NEB SCH ×4 (02:00→19:44)
[2020-11-28] MEDS: HYDROCODONE/APAP 5/325 MG TAB PO PRN ×4 (03:36→15:49)
[2020-11-28] MEDS: METHYLPREDNISOLONE 40 MG INJ IV SCH ×2 (03:53→06:00)
[2020-11-28 06:53] LABS: Absolute Lymphocytes (CBC) 0.5 K/uL (0.7-4.9); Hematocrit 45.6 % (39.6-49.0); Lymphocytes % 2.6 % (15.3-44.8); MPV 9.7 fL (7.6-11.3); RBC Red Blood Cell Count 5.04 M/uL (4.33-5.43)
[2020-11-28 07:12] LABS: Albumin 3.1 g/dL (3.4-5.0); Bilirubin Total 0.5 mg/dL (0.2-1.0); Magnesium 2.2 mg/dL (1.8-2.4); Potassium 4.6 mmol/L (3.5-5.1)
[2020-11-28] MEDS: NICOTINE 21 MG/PAT TD SCH (07:52)
[2020-11-28] MEDS: ASPIRIN EC 81 MG TAB PO SCH (07:52)
[2020-11-28] MEDS: ENOXAPARIN 40 MG/0.4 ML SQ SCH (07:53)
[2020-11-28] MEDS: FUROSEMIDE 40 MG/4 ML VIAL IV SCH (07:53)
[2020-11-28] MEDS: SPIRONOLACTONE 25 MG TABLET PO SCH ×2 (07:54→22:25)
[2020-11-28] MEDS: INSULIN 70/30 100 UNITS/ML SQ SCH ×2 (07:54→15:51)
[2020-11-28] MEDS: TAMSULOSIN 0.4 MG SR CAP PO SCH (07:55)
[2020-11-28] MEDS: INSULIN -REGULAR HUMAN 50 UNIT/0.5 ML ML SQ SCH ×4 (07:56→22:24)
[2020-11-28] MEDS ORDERED: TRAZODONE 50 MG TABLET PO PRN (09:19)
[2020-11-28 10:31] LABS: Blood Morphology Comment NOT SEEN (NOT SEEN); Platelet Estimate ADEQ; White Blood Cell Scan OK (OK)
--- NOTE | 2020-11-28 11:05 | P.CNS ---
Date of Consult: 11/28/20 Primary Care Provider: None Chief Complaint: Dyspnea r/t COPD vs CHF History of Present Illness: Patient is 55 years of age admitted with progressive dyspnea since seen was discharged from the hospital also noticed lower extremity edema is a little bit better abdominal swelling has decreased Allergies pseudoephedrine [From Actifed] Adverse Reaction (Verified 11/26/20 22:26) knock me out triprolidine [From Actifed] Adverse Reaction (Verified 11/26/20 22:26) knock me out Home Medications: Insulin 70/30 NPH/Reg Human [Novolin 70/30*] 20 unit SQ BID 11/27/20 Polyethyl Gly 3350 [Glycolax*] 1 packet PO DAILY PRN 11/27/20 Spironolactone [Aldactone*] 1 tab PO BID 11/27/20 Tamsulosin HCl 1 tab PO DAILY 11/27/20 predniSONE [Prednisone*] 1 tab PO BID 11/27/20 - Past Medical/Surgical History Diabetic: Yes -: T2DM -: bronchitis -: CHF -: COPD -: leg reconstruction -: sx on right leg -: sx left foot -: sx left side of the body Psychosocial/ Personal History: Unemployed due to back pain. Lives at home with . - Family History Mother Medical History: Cancer Notes: asbestosis Brother Medical History: Diabetes, Cancer Notes: asbestosis Father Medical History: Diabetes - Social History Smoking Status: Current every day smoker Alcohol use: No CD- Drugs: No Caffeine use: Yes Place of Residence: Home Review of Systems General: Weakness Respiratory: Shortness of Breath Cardiovascular: Edema Physical Examination Temp Pulse Resp BP Pulse Ox 98.8 F 114 H 20 135/84 95 11/28/20 08:00 11/28/20 08:00 11/28/20 08:57 11/28/20 08:00 11/28/20 08:57 General: Alert, Oriented x3 HEENT: Atraumatic Neck: Supple Respiratory: Clear to auscultation bilaterally, Diminished Cardiovascular: No edema, Regular rate/rhythm - Problems (1) COPD exacerbation Current Visit: No Status: Acute Plan: Patient is 55 years of age I suspect he has underlying severe COPD with possible cor pulmonale oxygenation vital signs stable renal function is slightly worse labs reviewed white count is mildly elevated chest CT scan shows mild cardiomegaly mild ascites continue with diuretics bronchodilators echocardiogram pending blood cultures negative no lung mass noted minimal excellent atelectasis of the bases DC IV antibiotics
[2020-11-28 12:59] LABS: Arterial Blood Carboxyhemoglob 1.5 % (0-1.5); Blood Gas Oxyhemoglobin 89.6 % (94-97); Blood O2 Saturation 91.8 % (92-98.5)
[2020-11-28] MEDS: ARFORMOTEROL TARTRATE 15 MCG/2 ML VIAL.NEB NEB SCH ×2 (13:08→19:44)
--- NOTE | 2020-11-28 14:00 | P.PN ---
Subjective Date of Service: 11/28/20 Primary Care Provider: None Chief Complaint: Dyspnea r/t COPD vs CHF Patient states he is feeling much better. His scrotal swelling has improved. Leg edema and ascites also improved He is maintained on 3-4 L oxygen by nasal cannula. Physical Examination - Vital Signs Temperature: 98.8 F Blood Pressure: 149/98 Pulse: 111 Respirations: 20 Pulse Ox (%): 95 - Physical Exam General: Alert, In no apparent distress, Oriented x3 HEENT: Mucous membr. moist/pink Neck: JVD not distended Respiratory: Diminished, Other (Mild bibasilar rales) Cardiovascular: Normal S1 S2, Other (Tachycardia), Edema (1+ bilateral lower extremity edema) Gastrointestinal: Normal bowel sounds, Soft and benign, No tenderness, Distended (Mildly distended) Musculoskeletal: No clubbing, No tenderness Integumentary: No rashes, No cyanosis Neurological: Normal strength at 5/5 x4 extr Assessment And Plan - Current Problems (Diagnosis) (1) Acute respiratory failure with hypoxia Current Visit: Yes Status: Acute (2) Anasarca Current Visit: Yes Status: Acute (3) Diabetes Current Visit: No Status: Acute Qualifiers: Diabetes mellitus type: other specified (including POORNIMA) (4) Chronic kidney disease, stage 3 Current Visit: Yes Status: Acute (5) Urinary tract infection Current Visit: Yes Status: Acute - Plan Clinically improving Continue IV Lasix. Echocardiogram is pending Intake and output monitoring. Troponin negative. Cause of anasarca is unclear. CT abdomen and pelvis and chest: Mild gastritis and mild her abdomen Fluid restriction. Patient with hyperglycemia. Titrating Novolin 70/30. Continue insulin sliding scale. Continue antibiotics for UTI and COPD exacerbation. Scheduled bronchodilators.
[2020-11-28] MEDS: ALBUTEROL 2.5 MG/3 ML NEB SOL NEB PRN (19:44)
[2020-11-28] MEDS: predniSONE 20 MG TAB PO SCH (22:25)
[2020-11-29] MEDS: IPRATROPIUM BROM 0.5MG/2.5ML NEB SCH ×4 (01:23→19:25)
[2020-11-29] MEDS: ALBUTEROL 2.5 MG/3 ML NEB SOL NEB PRN ×4 (01:23→19:25)
[2020-11-29] MEDS: HYDROCODONE/APAP 5/325 MG TAB PO PRN ×4 (05:35→20:47)
[2020-11-29 05:44] LABS: Absolute Lymphocytes (CBC) 0.7 K/uL (0.7-4.9); Basophils % 0.2 % (0-1.3); Hematocrit 43.2 % (39.6-49.0); Lymphocytes % 4.6 % (15.3-44.8); MPV 8.7 fL (7.6-11.3); RBC Red Blood Cell Count 4.74 M/uL (4.33-5.43)
[2020-11-29 06:20] LABS: Albumin 2.8 g/dL (3.4-5.0); Bilirubin Total 0.5 mg/dL (0.2-1.0); Magnesium 2.1 mg/dL (1.8-2.4); Potassium 4.4 mmol/L (3.5-5.1); Protein, Total 6.6 g/dL (6.4-8.2)
[2020-11-29] MEDS: ARFORMOTEROL TARTRATE 15 MCG/2 ML VIAL.NEB NEB SCH ×2 (09:00→19:25)
[2020-11-29] MEDS ORDERED: FUROSEMIDE 40 MG/4 ML VIAL IV SCH (09:00)
[2020-11-29] MEDS: ENOXAPARIN 40 MG/0.4 ML SQ SCH (09:00)
[2020-11-29] MEDS: TAMSULOSIN 0.4 MG SR CAP PO SCH (09:55)
[2020-11-29] MEDS: NICOTINE 21 MG/PAT TD SCH (09:55)
[2020-11-29] MEDS: SPIRONOLACTONE 25 MG TABLET PO SCH ×2 (09:55→20:48)
[2020-11-29] MEDS: FUROSEMIDE 40 MG TABLET PO SCH (09:55)
[2020-11-29] MEDS: levoFLOXacin 500 MG TAB PO SCH (09:55)
[2020-11-29] MEDS: predniSONE 20 MG TAB PO SCH ×2 (09:56→20:48)
[2020-11-29] MEDS: ASPIRIN EC 81 MG TAB PO SCH (09:56)
[2020-11-29] MEDS: INSULIN -REGULAR HUMAN 50 UNIT/0.5 ML ML SQ SCH ×4 (09:56→20:48)
[2020-11-29] MEDS: INSULIN 70/30 100 UNITS/ML SQ SCH ×2 (09:57→17:43)
--- NOTE | 2020-11-29 11:34 | RAD REPORT ---
EXAM DESCRIPTION: CT - Soft Tissue Neck Wo Contr - 11/29/2020 11:09 am CLINICAL HISTORY: throat pain. A feeling of hole in my throat. COMPARISON: No comparisons TECHNIQUE: During dynamic enhancement using 100 milliliters nonionic IV contrast, axial 5 millimeter thick images of the neck were obtained. All CT scans are performed using dose optimization technique as appropriate and may include automated exposure control or mA/KV adjustment according to patient size. FINDINGS: Intracranial portion the examination is unremarkable. No globe or orbital content abnormal ity seen. Partially visualized paranasal sinuses are clear. Mastoid air cells and middle ears are ynes ar. No vascular abnormality identifiable. Cervical spine degenerative changes are present. Disc space narrowing present at C4-5 and C5-6 with s mall anterior and posterior endplate spurs present. Parotid, submandibular and thyroid gland tissues are normal and symmetric. No abnormal lymphadenopath y seen. A few small nonspecific sub centimeter lymph nodes are seen. No pharyngeal mucosal mass or asymmetry identifiable. No tonsil, tongue base mass seen. Epiglottis is normal. No vocal cord abnormality identifiable. Retropharyngeal soft tissues are unremarkable. Parap haryngeal fat is normal. IMPRESSION: No mass, lymphadenopathy or other suspicious finding identifiable. Patient does have endplate spurring changes C4-5 and C5-6 that likely cause a mild extrinsic impressi on on the cervical esophagus. This may be symptomatic during swallowing.
--- NOTE | 2020-11-29 15:46 | P.PN ---
Subjective Date of Service: 11/29/20 Primary Care Provider: None Chief Complaint: Dyspnea r/t COPD vs CHF Patient has multiple complaints today. 'Pain in the right knee', 'a hole in my neck area', 'thick sputum which I can't cough out' His scrotal swelling has improved. Leg edema and ascites also improved He is on 4-5 L oxygen by nasal cannula today. Physical Examination - Vital Signs Temperature: 98.2 F Blood Pressure: 126/82 Pulse: 106 Respirations: 16 Pulse Ox (%): 94 - Physical Exam General: Alert, In no apparent distress HEENT: Mucous membr. moist/pink Neck: JVD not distended Respiratory: Other (Patient makes sound in his throat to make it sound as if he is wheezing.) Cardiovascular: Normal S1 S2, Irregular heart rate/rhythm Gastrointestinal: Soft and benign, Non-distended Musculoskeletal: No swelling Integumentary: No rashes Neurological: Normal strength at 5/5 x4 extr Assessment And Plan - Current Problems (Diagnosis) (1) Acute respiratory failure with hypoxia Current Visit: Yes Status: Acute (2) Anasarca Current Visit: Yes Status: Acute (3) Diabetes Current Visit: No Status: Acute Qualifiers: Diabetes mellitus type: other specified (including POORNIMA) (4) Chronic kidney disease, stage 3 Current Visit: Yes Status: Acute (5) Urinary tract infection Current Visit: Yes Status: Acute - Plan Patient make sound in his throat to make it sound as if he is wheezing. Not sure what his motive is. Continue IV Lasix. Echocardiogram done and the result is pending. CT soft tissue of the neck done to evaluate patient's symptoms of hole in the neck. CT soft tissue of the neck is unremarkable. It does report endplate spurring changes C4-5 and C5-6 that likely cause a mild extrinsic impression on the cervical esophagus. Troponin negative. Cause of anasarca is unclear. CT abdomen and pelvis and chest: Mild gastritis and mild hepatomegaly Fluid restriction. Patient with hyperglycemia. Titrating Novolin 70/30. Continue insulin sliding scale. Continue antibiotics for UTI and COPD exacerbation. Scheduled bronchodilators. Weaned off oxygen as tolerated. Pain management as needed. Chest physiotherapy. Mucinex
[2020-11-29] MEDS: GUAIFENESIN 600 MG SA TAB PO SCH (20:47)
[2020-11-30] MEDS: HYDROCODONE/APAP 5/325 MG TAB PO PRN ×5 (01:25→18:35)
[2020-11-30] MEDS: NICOTINE 21 MG/PAT TD SCH ×2 (01:49→20:52)
[2020-11-30] MEDS: ALBUTEROL 2.5 MG/3 ML NEB SOL NEB PRN ×2 (02:01→14:00)
[2020-11-30] MEDS: IPRATROPIUM BROM 0.5MG/2.5ML NEB SCH ×4 (02:01→19:40)
[2020-11-30 05:48] LABS: Absolute Lymphocytes (CBC) 0.8 K/uL (0.7-4.9); Basophils % 0.2 % (0-1.3); Hematocrit 46.2 % (39.6-49.0); Lymphocytes % 6.3 % (15.3-44.8); MPV 9.3 fL (7.6-11.3); RBC Red Blood Cell Count 5.06 M/uL (4.33-5.43)
[2020-11-30 05:57] LABS: Potassium 4.7 mmol/L (3.5-5.1)
[2020-11-30] MEDS: INSULIN -REGULAR HUMAN 50 UNIT/0.5 ML ML SQ SCH ×4 (07:30→20:55)
--- NOTE | 2020-11-30 07:50 | ECHO ---
HEIGHT: 5 ft 11 in WEIGHT: 478 lb 0 oz DATE OF STUDY: 11/29/[address]: nba haas 2-DIMENSIONAL: YES M.MODE: YES DOPPLER: YES COLOR FLOW: YES TDS: NO PORTABLE: NO DEFINITY: NO BUBBLE STUDY: NO DIAGNOSIS: ANARSACA CARDIAC HISTORY: CATHERIZATION: NO SURGERY: NO PROSTHETIC VALVE: NO PACEMAKER: NO MEASUREMENTS (cm) DIASTOLIC (NORMALS) SYSTOLIC (NORMALS) IVSd 1.2 (0.6-1.2) LA Diam 1.7 (1.9-4.0) LVEF 25-30% LVIDd 4.2 (3.5-5.7) LVIDs 3.1 (2.0-3.5) %FS 25% LVPWd 1.2 (0.6-1.2) Ao Diam 2.9 (2.0-3.7) 2 DIMENSIONAL ASSESSMENT: RIGHT ATRIUM: NORMAL LEFT ATRIUM: NORMAL RIGHT VENTRICLE: MILDLY DEPRESSED LEFT VENTRICLE: DEPRESSED TRICUSPID VALVE: MITRAL VALVE: NORMAL PULMONIC VALVE: NORMAL AORTIC VALVE: NORMAL PERICARDIAL EFFUSION: NONE AORTIC ROOT: NORMAL LEFT VENTRICULAR WALL MOTION: SEVERE ANTERIOSEPTAL AND ANTERIOR HYPOKINESIS. DOPPLER/COLOR FLOW: SEE BELOW. COMMENTS: SEVERELY DEPRESSED LEFT VENTRICULAR EJECTION FRACTION 25-30%. SEVERE ANTERIOSEPTAL AND ANTERIOR HYPOKINESIS. MILD TRICUSPID REGURGITATION. RIGHT VENTRICULAR SYSTOLIC PRESSURE OF 50-55 mmHg. TECHNOLOGIST: Aaron ORTEGA
[2020-11-30] MEDS: ARFORMOTEROL TARTRATE 15 MCG/2 ML VIAL.NEB NEB SCH ×2 (08:00→19:40)
[2020-11-30] MEDS: INSULIN 70/30 100 UNITS/ML SQ SCH ×2 (09:43→16:16)
[2020-11-30] MEDS: ENOXAPARIN 40 MG/0.4 ML SQ SCH (09:44)
[2020-11-30] MEDS: SPIRONOLACTONE 25 MG TABLET PO SCH ×2 (09:44→20:54)
[2020-11-30] MEDS: levoFLOXacin 500 MG TAB PO SCH (09:44)
[2020-11-30] MEDS: ASPIRIN EC 81 MG TAB PO SCH (09:44)
[2020-11-30] MEDS: FUROSEMIDE 40 MG TABLET PO SCH (09:45)
[2020-11-30] MEDS: GUAIFENESIN 600 MG SA TAB PO SCH ×2 (09:45→20:54)
[2020-11-30] MEDS: TAMSULOSIN 0.4 MG SR CAP PO SCH (09:45)
[2020-11-30] MEDS: predniSONE 20 MG TAB PO SCH ×2 (09:45→20:54)
--- NOTE | 2020-11-30 10:49 | RAD REPORT ---
EXAM DESCRIPTION: CT - Hip Right Wo Con - 11/30/2020 9:31 am CLINICAL HISTORY: R hip pain, posterior hip/thigh pain, +anasarca Pain and swelling COMPARISON: No comparisons FINDINGS: Skin thickening and subcutaneous edema is present about the right hip and thigh. No fracture or dislocation of the right hip is seen. Mild right osteoarthritis is evident. No significant right hip joint effusion. No CT evidence of femoral head avascular necrosis. No soft tissue mass or hematoma is evident. IMPRESSION: Mild right hip osteoarthritis is present. Edematous change affects the soft tissues of t he hip and thigh. No fracture, dislocation, AVN pattern or soft tissue mass evident. All CT scans are performed using dose optimization technique as appropriate and may include automated exposure control or mA/KV adjustment according to patient size.
[2020-11-30] MEDS: carvediloL 6.25 MG TAB PO SCH ×2 (12:24→20:54)
--- NOTE | 2020-11-30 13:48 | P.CNS ---
Date of Consult: 11/30/20 Reason for Consult: establish primary care Requesting Physician: Dharmesh Linder Primary Care Provider: None Chief Complaint: Dyspnea r/t COPD vs CHF History of Present Illness: Patient presented with sob and was admitted for copd exacerbation with smoking. He was found to be diabetic with an a1c of 11.7. He was also found to have an ef of 20% The patient smokes, has chronic back pain. History of exposure to asbestosis. He has been no history of dm2 before this admission. The patient has a family history with a lot of dm. He snores states he has witness apnea episodes. Allergies pseudoephedrine [From Actifed] Adverse Reaction (Verified 11/26/20 22:26) knock me out triprolidine [From Actifed] Adverse Reaction (Verified 11/26/20 22:26) knock me out Home Medications: Insulin 70/30 NPH/Reg Human [Novolin 70/30*] 20 unit SQ BID 11/27/20 Polyethyl Gly 3350 [Glycolax*] 1 packet PO DAILY PRN 11/27/20 Spironolactone [Aldactone*] 1 tab PO BID 11/27/20 Tamsulosin HCl 1 tab PO DAILY 11/27/20 predniSONE [Prednisone*] 1 tab PO BID 11/27/20 - Past Medical/Surgical History Diabetic: Yes -: T2DM -: bronchitis -: CHF -: COPD -: leg reconstruction -: sx on right leg -: sx left foot -: sx left side of the body Psychosocial/ Personal History: Unemployed due to back pain. Lives at home with . - Family History Mother Medical History: Cancer Notes: asbestosis Brother Medical History: Diabetes, Cancer Notes: asbestosis Father Medical History: Diabetes - Social History Smoking Status: Current every day smoker Alcohol use: No CD- Drugs: No Caffeine use: Yes Place of Residence: Home Review of Systems 10-point ROS is otherwise unremarkable Respiratory: Shortness of Breath Musculoskeletal: Back Pain Physical Examination Temp Pulse Resp BP Pulse Ox 98.7 F 110 H 20 137/75 96 11/30/20 08:00 11/30/20 12:24 11/30/20 08:00 11/30/20 12:24 11/30/20 08:00 General: Alert, In no apparent distress HEENT: Atraumatic, PERRLA, Mucous membr. moist/pink, EOMI, Sclerae nonicteric Neck: Supple, 2+ carotid pulse no bruit, No LAD, Without JVD or thyroid abnormality Respiratory: Normal air movement, Expiratory wheezes Cardiovascular: Regular rate/rhythm, Normal S1 S2 Gastrointestinal: Normal bowel sounds, No tenderness Musculoskeletal: No tenderness Integumentary: No rashes Neurological: Normal gait, Normal speech, Normal tone, Normal affect Lymphatics: No axilla or inguinal lymphadenopathy - Problems (1) CHF (congestive heart failure) Current Visit: Yes Status: Chronic Plan: will await consult with Dr. Pisano. Would start him on VANE and sglt2, asa. Will need to treat sleep apnea as well. Qualifiers: Heart failure type: systolic (2) Low back pain Current Visit: Yes Status: Chronic Plan: NO nsaids. Will refer to PT. start with Acetaminophen and voltaren gel. Qualifiers: Chronicity: chronic (3) Sleep apnea Current Visit: Yes Status: Chronic Plan: will need to order an out patient sleep study. Will impove his diabetes and cardiac health. Have not done an epworth or stop bang. Will do this in the office. Qualifiers: Sleep apnea type: obstructive Qualified Code(s): G47.33 - Obstructive sleep apnea (adult) (pediatric) (4) COPD exacerbation Current Visit: No Status: Acute Plan: seen by Dr. Lange. Will start him on chronic inhalers. Discussed smoking cessation with him for 10 minutes (5) Diabetes Current Visit: No Status: Acute Plan: would start the patient on farxiga and a glp1 such as ozempic. Gave him the number for the diabetic education program Will have him follow up. Contnous discussion of lifestyle and diet over the next few months Qualifiers: Diabetes mellitus type: type 2 Chronic kidney disease stage: stage 2 (mild) Physician Review: Patient Assessed, Agree with Above Assessment and Plan Critical Care: No Time Spent Managing Pts care (In Minutes): 30
--- NOTE | 2020-11-30 14:25 | P.PN ---
Date of Service: 11/30/20 Subjective: Patient states he feels a little bit better today. Still short of breath, requiring 5 L nasal cannula this morning Also reporting right hip pain, feels like as muscles or ligaments pulled when he was getting out of bed overnight Worked well with physical therapy yesterday Feels lower extremity swelling minimally improved ROS: 10 point review of systems otherwise negative Physical exam GEN: Alert, oriented, NAD HEENT: Normal conjunctiva, sclera anicteric CV: Regular rate and rhythm, 2+ edema up to knees, 1+ in hips Pulm: nonlabored respirations on 5L NC ABD: Soft, nontender, nondistended MSK: tenderness along R latera hip/ upper thigh Integumentary: No rashes Neuro: Normal speech, normal affect Assessment And Plan Acute hypoxemic respiratory failure secondary to systolic CHF exacerbation and acute on chronic COPD exacerbation Acute on chronic COPD exacerbation Systolic CHF exacerbation, new diagnosis (EF: 25-30%) Diabetes mellitus type 2, insulin-dependent yeast in urine CKD, stage III Right hip pain Throat pain Chronic back pain Echocardiogram read this morning, significant systolic CHF, new onset. Patient denies any prior echocardiogram, denies any prior history of CHF diagnosis. Does not see cardiology Continue Lasix, edema and respiratory status improving Start Coreg Patient denies taking any diuretics or other blood pressure medication at home, will discuss further with cardiology, may benefit from VANE inhibitor CT soft tissue of the neck done to evaluate patient's symptoms of hole in the neck. CT soft tissue of the neck is unremarkable. It does report endplate spurring changes C4-5 and C5-6 that likely cause a mild extrinsic impression on the cervical esophagus. Continue steroids, nebs, pulmonology following Troponin negative. Patient with hyperglycemia. Titrating Novolin 70/30. Continue insulin sliding scale. Levaquin started for possible UTI, and COPD exacerbation. Urine without any growth, UA did show yeast. Start Diflucan 11/30 Continue Levaquin, sputum growing Serratia. Continue bronchodilators, wean O2 as tolerated Mucinex Dispo: Anticipate DC home in the next 1-2 days, will need home oxygen
[2020-11-30] MEDS: FLUCONAZOLE 100 MG TAB PO SCH (15:02)
[2020-11-30] MEDS ORDERED: IPRATROPIUM BROM 0.5MG/2.5ML ONE (15:08)
[2020-12-01] MEDS: HYDROCODONE/APAP 5/325 MG TAB PO PRN (01:11)
[2020-12-01] MEDS: IPRATROPIUM BROM 0.5MG/2.5ML NEB SCH ×2 (03:00→08:00)
[2020-12-01 05:55] LABS: MPV 9.1 fL (7.6-11.3); RBC Red Blood Cell Count 5.17 M/uL (4.33-5.43)
[2020-12-01 06:08] LABS: Magnesium 2.2 mg/dL (1.8-2.4)
[2020-12-01] MEDS: INSULIN -REGULAR HUMAN 50 UNIT/0.5 ML ML SQ SCH (07:30)
[2020-12-01] MEDS: ARFORMOTEROL TARTRATE 15 MCG/2 ML VIAL.NEB NEB SCH (08:00)
[2020-12-01 08:47] VITALS: TEMP 97
[2020-12-01] MEDS: levoFLOXacin 500 MG TAB PO SCH (09:00)
[2020-12-01] MEDS: ENOXAPARIN 40 MG/0.4 ML SQ SCH (09:05)
[2020-12-01] MEDS: ASPIRIN EC 81 MG TAB PO SCH (09:05)
[2020-12-01 09:06] VITALS: BP 137/93
[2020-12-01] MEDS: FUROSEMIDE 40 MG TABLET PO SCH (09:06)
[2020-12-01] MEDS: predniSONE 20 MG TAB PO SCH (09:06)
[2020-12-01] MEDS: TAMSULOSIN 0.4 MG SR CAP PO SCH (09:07)
[2020-12-01] MEDS: FLUCONAZOLE 100 MG TAB PO SCH (09:07)
[2020-12-01] MEDS: GUAIFENESIN 600 MG SA TAB PO SCH (09:07)
[2020-12-01] MEDS: SPIRONOLACTONE 25 MG TABLET PO SCH (09:07)
[2020-12-01] MEDS: carvediloL 6.25 MG TAB PO SCH (09:07)
[2020-12-01] MEDS: INSULIN 70/30 100 UNITS/ML SQ SCH (09:08)
[2020-12-01] MEDS: ALBUTEROL 2.5 MG/3 ML NEB SOL NEB PRN (09:09)
[2020-12-01 11:01] VITALS: O2SAT 100
--- NOTE | 2020-12-01 17:17 | P.DS ---
Admission Date: 11/26/20 Discharge Date: 12/01/20 Primary Care Provider: None Disposition: ROUTINE DISCHARGE Discharge Condition: FAIR Reason for Admission: Dyspnea r/t COPD vs CHF Consultations: Pulmonology- Dr. Linder Cardiology - Dr. Cutler Procedures: CXR (11/26): FINDINGS: No significant change in mild bilateral pulmonary opacities. The heart remains enlarged IMPRESSION: Mild bilateral pulmonary opacities may indicate interstitial pulmonary edema CT chest/abdomen/pelvis (11/27): FINDINGS: Mild linear atelectasis is present in both lung bases. The lungs are otherwise clear.No pleural or pericardial effusion.Upper limit of normal lymph nodes are seen in the mediastinum. Liver size is mildly prominent. Spleen, pancreas, adrenal glands and left kidney are within normal limits for noncontrast study. Calculi are present in the right kidney, largest inferior right kidney measuring 10 mm without hydronephrosis. Mild ascites is noted. No bowel obstruction or free air. Normal appendix. Mild sigmoid diverticulosis. No pathologic lymphadenopathy in the abdomen or pelvis. Mild anasarca and scrotal hydroceles seen. Old left-sided rib fractures are seen. Mild lower lumbar degenerative changes. IMPRESSION: Mild hepatomegaly. Mild ascites. Right nephrolithiasis without hydronephrosis. Mild anasarca. CT soft tissue neck (11/29): FINDINGS: Intracranial portion the examination is unremarkable. No globe or orbital content abnormality seen. Partially visualized paranasal sinuses are clear. Mastoid air cells and middle ears are clear. No vascular abnormality identifiable. Cervical spine degenerative changes are present. Disc space narrowing present at C4-5 and C5-6 with small anterior and posterior endplate spurs present. Parotid, submandibular and thyroid gland tissues are normal and symmetric. No abnormal lymphadenopathy seen. A few small nonspecific sub centimeter lymph nodes are seen. No pharyngeal mucosal mass or asymmetry identifiable. No tonsil, tongue base mass seen. Epiglottis is normal. No vocal cord abnormality identifiable. Retropharyngeal soft tissues are unremarkable. Parapharyngeal fat is normal. IMPRESSION: No mass, lymphadenopathy or other suspicious finding identifiable. Patient does have endplate spurring changes C4-5 and C5-6 that likely cause a mild extrinsic impression on the cervical esophagus. This may be symptomatic during swallowing. CT Hip (11/30): FINDINGS: Skin thickening and subcutaneous edema is present about the right hip and thigh. No fracture or dislocation of the right hip is seen. Mild right osteoarthritis is evident. No significant right hip joint effusion. No CT evidence of femoral head avascular necrosis. No soft tissue mass or hematoma is evident. IMPRESSION: Mild right hip osteoarthritis is present. Edematous change affects the soft tissues of the hip and thigh. No fracture, dislocation, AVN pattern or soft tissue mass evident. Echocardiogram (11/29): Severely depressed LVEF (25-30%) Severe anteroseptal and anterior hypokinesis. Mild tricuspid regurgitation, RV SP: 50-55 mmHg Problem list Acute hypoxemic respiratory failure secondary to systolic CHF exacerbation and acute on chronic COPD exacerbation Acute on chronic COPD exacerbation Systolic CHF exacerbation, new diagnosis (EF: 25-30%) Diabetes mellitus type 2, insulin-dependent yeast in urine CKD, stage III Right hip pain Throat pain Chronic back pain Brief History of Present Illness: 55yo M, PMH: COPD, chronic back pain. Presents to ED due to progressively worsening shortness of breath and swelling in his lower extremities. He reports significant dyspnea on exertion and orthopnea. Also reports productive cough and sore throat. In the ED, he was noted to be tachypneic, dyspneic, with significant pitting edema/anasarca. Hospital Course: Patient was empirically treated with an antibiotic and diuretics. Pulmonology was consulted, patient was treated with Levaquin, nebulizers, and steroids. Sputum culture grew Serratia. Patient discharged to complete a total 10 days of Levaquin. New diagnosis, heart failure with reduced ejection fraction. Acute exacerbation. Echocardiogram was performed, consistent with severe systolic congestive heart failure. EF: 25-30%. Cardiology was consulted. Recommended continuation of Lasix, spironolactone, addition of Coreg, aspirin, and VANE inhibitor. He is to follow-up with cardiology in the next 1-2 weeks. He should undergo cardiac stress test. Diabetes mellitus type 2, insulin-dependent. Patient takes 70/30 at home, states glucose typically [id number]. He was hyperglycemic on admission. Advised slight increase in his typical insulin for the next few days while he is taking steroids. He is to follow-up with his PCP in 3 to 5 days. During his hospitalization he had multiple other complaints. He reported some chronic neck pain/feel like whole has been in his neck. CT was only notable for some endplate spurring changes at C4-C5 and C5-C6 that may likely cause a mild excess extrinsic impression on the cervical esophagus. He also reported right hip pain that began after getting up off the bed. Notable for some osteoarthritic changes. Physical therapy was consulted, patient was ambulating without assistance. Patient did report some dysuria a few days prior to hospitalization. Is empirically covered with Levaquin, and yeast was noted in the urine. No bacteria was grown. He is discharged to complete 2 weeks of Diflucan. Vital Signs/Physical Exam: Physical exam GEN: Alert, oriented, NAD HEENT: Normal conjunctiva, sclera anicteric CV: Regular rate and rhythm, 1+ edema up to knees Pulm: nonlabored respirations on 4L NC ABD: Soft, nontender, nondistended MSK: tenderness along R lateral hip/ upper thigh, no overlying skin erythema Integumentary: No rashes Neuro: Normal speech, normal affect Temp Pulse Resp BP Pulse Ox 97 F 99 H 20 137/93 H 100 12/01/20 08:00 12/01/20 09:07 12/01/20 08:00 12/01/20 09:07 12/01/20 08:00 Laboratory Data at Discharge: WBC 12.30 K/uL (4.3-10.9) H 12/01/20 05:30 Hgb 14.8 g/dL (13.6-17.9) 12/01/20 05:30 Hct 47.0 % (39.6-49.0) 12/01/20 05:30 Plt Count 185 K/uL (152-406) 12/01/20 05:30 PT 12.3 SECONDS (9.5-12.5) 11/26/20 14:44 INR 1.07 11/26/20 14:44 APTT 30.6 SECONDS (24.3-36.9) 11/26/20 14:44 Sodium 137 mmol/L (136-145) 12/01/20 05:30 Potassium 5.0 mmol/L (3.5-5.1) 12/01/20 05:30 BUN 37 mg/dL (7-18) H 12/01/20 05:30 Creatinine 1.43 mg/dL (0.55-1.3) H 12/01/20 05:30 Glucose 127 mg/dL (74-106) H 12/01/20 05:30 Magnesium 2.2 mg/dL (1.8-2.4) 12/01/20 05:30 Total Bilirubin 0.5 mg/dL (0.2-1.0) 11/29/20 05:19 AST 18 U/L (15-37) 11/29/20 05:19 ALT 28 U/L (12-78) 11/29/20 05:19 Alkaline Phosphatase 81 U/L (45-117) 11/29/20 05:19 Troponin I 0.02 ng/mL (0.0-0.045) 11/27/20 03:37 Home Medications: Insulin 70/30 NPH/Reg Human [Novolin 70/30*] 20 unit SQ BID 11/27/20 Polyethyl Gly 3350 [Glycolax*] 1 packet PO DAILY PRN 11/27/20 Spironolactone [Aldactone*] 1 tab PO BID 11/27/20 Tamsulosin HCl 1 tab PO DAILY 11/27/20 Arformoterol Tartrate [Brovana] 15 mcg NEB BIDRESP vial.nicole 12/01/20 Aspirin [Aspirin EC 81 MG] 81 mg PO DAILY 30 Days #30 tablet. 12/01/20 Fluconazole [Diflucan] 200 mg PO DAILY 12 Days #12 tablet 12/01/20 Furosemide [Lasix*] 40 mg PO DAILY 30 Days #30 tab 12/01/20 Lisinopril [Zestril] 2.5 mg PO DAILY 30 Days #30 tablet 12/01/20 carvediloL [Coreg*] 6.25 mg PO BID 30 Days #60 tab 12/01/20 levoFLOXacin [Levaquin*] 500 mg PO DAILY 7 Days #7 tab 12/01/20 predniSONE [Prednisone*] 20 mg PO BID 5 Days #10 tab 12/01/20 New Medications: Aspirin [Aspirin EC 81 MG] 81 mg PO DAILY 30 Days #30 tablet. carvediloL [Coreg*] 6.25 mg PO BID 30 Days #60 tab Fluconazole [Diflucan] 200 mg PO DAILY 12 Days #12 tablet Furosemide [Lasix*] 40 mg PO DAILY 30 Days #30 tab levoFLOXacin [Levaquin*] 500 mg PO DAILY 7 Days #7 tab predniSONE [Prednisone*] 20 mg PO BID 5 Days #10 tab Lisinopril [Zestril] 2.5 mg PO DAILY 30 Days #30 tablet Physician Discharge Instructions: You were found to have new diagnosis of congestive heart failure. Your ejection fraction is 25-30%. This leads to shortness of breath, fatigue, and fluid retention. You need to have good management of your diabetes, blood pressure, and fluid status. You were also wheezing and found to have a mild COPD exacerbation in addition to this new diagnosis of heart failure. Your sputum grew a bacteria (Serratia), and you were noted to have yeast in your urine. You are discharged home with a few days of steroids, a week of antibiotics, and fluconazole for the yeast. Your blood sugar levels were high when you came into the ER, and were well controlled with strict diet and 40 units of insulin 70/30 twice a day. Recommend 35 units insulin 70/30 over the next few days while taking prednisone. Resume prior dosing once you complete the higher prednisone course. Follow-up: Pulmonology in test 1 week - Dr. Linder Cardiology in the next 1-2 weeks, you will need outpatient stress test and further evaluation/adjustment of your medications Your primary care doctor / Dr. Rai in 3-5 days. Diet: ADA Activity: Ad mikala Followup: Dharmesh Linder MD [Primary Care Provider] - Pal Pisano MD [ACTIVE - CAN ADMIT] - Jay Rai MD [ACTIVE - CAN ADMIT] - Time spent managing pt's care (in minutes): 45
--- NOTE | 2020-12-05 11:15 | CON ---
Date of Consultation: 11/30/2020 Reason For Consultation: Congestive heart failure. History Of Present Illness: Mr. Lara is a 55-year-old who has been in the hospital for COPD, diabet es, hypertension, lung mass, was found on echocardiogram to newly diagnosed congestive heart failure systolic with an ejection fraction 25% to 30%. The patient complained of shortness of breath. Denie d chest pain, nausea, vomiting, diaphoresis, PND, orthopnea, pedal edema, palpitations, or syncope. Past Medical History: Includes hypertension, diabetes, COPD, and lung mass. Allergies: TO PSEUDOEPHEDRINE. Medications: At home include aspirin, inhalers, insulin, Lasix, and Aldactone. Review of Systems: Negative. Social History: Negative. Family History: Noncontributory. Physical Examination: Vital Signs: Stable, sinus rhythm, afebrile. HEENT: Negative. Neck: Supple with no bruit. Chest: Reveals rales at both bases. Cardiac: Revealed a regular rhythm and rate with S3 gallops, tricuspid regurgitation, murmur, but no rubs. Abdomen: Benign. Extremities: Revealed 1+ edema. Diagnostic Data: His white count was 12. His creatinine is 1.3, glucose of 306. His ejection fract ion of 25% to 30%, global hypokinesis severe. pO2 was 63, pCO2 of 57, pH of 7.41. Impression And Plan: 1.Acute systolic congestive heart failure. 2.Hypertension. 3.Diabetes. 4.Chronic obstructive pulmonary disease. The patient should have a Lexiscan and maybe a catheteriza tion as an outpatient. He should be on beta-blockers, Lasix, VANE inhibitor, and Aldactone. He is on inhalers, aspirin, Lasix, insulin, and he is on Lovenox and I agree with his present regimen. NINO/AVTARL Voice ID: [id number] Report ID: [id number]
== END 2020-12-01 11:45 | disposition home or self-care (01) | DRG 291 ==
LOC: ER 14:12 → ERHOLD 16:59 → 2ND 20:44
PROVIDERS: ADMIT Internal Medicine; ATTEND Internal Medicine
DX: I13.0 Hypertensive heart and chronic kidney disease with heart failure and stage 1 through stage 4 chronic kidney disease, or unspecified chronic kidney disease (principal); I50.21 Acute systolic (congestive) heart failure; J96.01 Acute respiratory failure with hypoxia; J44.1 Chronic obstructive pulmonary disease with (acute) exacerbation; B37.49 Other urogenital candidiasis; N18.30 Chronic kidney disease, stage 3 unspecified; E11.22 Type 2 diabetes mellitus with diabetic chronic kidney disease; M25.551 Pain in right hip; R07.0 Pain in throat; M54.9 Dorsalgia, unspecified; K29.70 Gastritis, unspecified, without bleeding; F17.210 Nicotine dependence, cigarettes, uncomplicated; Z20.822 Contact with and (suspected) exposure to COVID-19
CPT/HCPCS: 36415; 51702; 70490; 71045; 71250; 73700; 74176; 80048; 80053; 81003; 81015; 82805; 82947; 83735; 83880; 84132; 84484; 85025; 85027; 85610; 85730; 87040; 87070; 87077; 87086; 87088; 87186; 87205; 93005; 93306; 94010; 94760; 96374; 96375; 97161; 99285; J1650; J1815; J1940; J2920; J2930; J3475; J7512; J7605; Q9967; U0003

== ENCOUNTER 2020-12-07 15:46 | Inpatient (IN) | payer OTHER ==
[2020-12-07] MEDS ORDERED: GLUCAGON 1 MG/VIAL IM PRN (16:37)
[2020-12-07 16:42] VITALS: BMI 30.5
[2020-12-07] MEDS ORDERED: D50W 25 GM/50 ML VIAL IV PRN (17:01)
[2020-12-07 17:25] LABS: Potassium 5.4 mmol/L (3.5-5.1)
--- NOTE | 2020-12-07 17:27 | P.HP ---
Certification for Inpatient Patient admitted to: Inpatient With expected LOS: >2 Midnights Patient will require the following post-hospital care: None Practitioner: I am a practitioner with admitting privileges, knowledge of patient current condition, hospital course, and medical plan of care. Services: Services provided to patient in accordance with Admission requirements found in Title 42 Section 412.3 of the Code of Federal Regulations Patient History Date of Service: 12/07/20 Primary Care Provider: Cecelia Reason for admission: Copd Exacerbation History of Present Illness: Patient came to the office to establish care. He was sob and using accessory muscles Pulse ox was normal at 93% on Room air. He was smelling strongly of cigarettes. The patient states he only had one. He was released from the hospital last week. The patient was sent home on Prednisone. Yesterday would have been his last day. The patient has a history of living this way. However on my last visit with him in the hospital he was breathing comfortable Allergies pseudoephedrine [From Actifed] Adverse Reaction (Verified 11/26/20 22:26) knock me out triprolidine [From Actifed] Adverse Reaction (Verified 11/26/20 22:26) knock me out Home Medications: Insulin 70/30 NPH/Reg Human [Novolin 70/30*] 20 unit SQ BID 11/27/20 Polyethyl Gly 3350 [Glycolax*] 1 packet PO DAILY PRN 11/27/20 Spironolactone [Aldactone*] 1 tab PO BID 11/27/20 Tamsulosin HCl 1 tab PO DAILY 11/27/20 Arformoterol Tartrate [Brovana] 15 mcg NEB BIDRESP vial.neb 12/01/20 Aspirin [Aspirin EC 81 MG] 81 mg PO DAILY 30 Days #30 tablet. 12/01/20 Fluconazole [Diflucan] 200 mg PO DAILY 12 Days #12 tablet 12/01/20 Furosemide [Lasix*] 40 mg PO DAILY 30 Days #30 tab 12/01/20 Lisinopril [Zestril] 2.5 mg PO DAILY 30 Days #30 tablet 12/01/20 carvediloL [Coreg*] 6.25 mg PO BID 30 Days #60 tab 12/01/20 levoFLOXacin [Levaquin*] 500 mg PO DAILY 7 Days #7 tab 12/01/20 predniSONE [Prednisone*] 20 mg PO BID 5 Days #10 tab 12/01/20 - Past Medical/Surgical History Diabetic: Yes -: T2DM -: bronchitis -: CHF -: COPD -: leg reconstruction -: sx on right leg -: sx left foot -: sx left side of the body Psychosocial/ Personal History: Unemployed due to back pain. Lives at home with . - Family History Mother -: Cancer Notes: asbestosis Brother -: Diabetes, Cancer Notes: asbestosis Father -: Diabetes - Social History Smoking Status: Light Tobacco smoker (1-9 cigarettes/day) Alcohol use: No CD- Drugs: No Caffeine use: Yes Place of Residence: Home Review of Systems 10-point ROS is otherwise unremarkable Respiratory: Cough, Shortness of Breath Physical Examination - Physical Exam General: Alert, Oriented x3, Acute distress HEENT: Atraumatic, PERRLA, Mucous membr. moist/pink, EOMI, Sclerae nonicteric Neck: Supple, 2+ carotid pulse no bruit, No LAD, Without JVD or thyroid abnormality Respiratory: Diminished, Expiratory wheezes Cardiovascular: Regular rate/rhythm, Normal S1 S2 Gastrointestinal: Normal bowel sounds, No tenderness Musculoskeletal: No tenderness Integumentary: No rashes Neurological: Normal gait, Normal speech, Normal strength at 5/5 x4 extr, Normal tone, Normal affect Lymphatics: No axilla or inguinal lymphadenopathy Assessment and Plan - Problems (Diagnosis) (1) Acute exacerbation of chronic obstructive pulmonary disease (COPD) Current Visit: Yes Status: Acute Plan: will admit him to the hospital and start him on breathing treatments and steroids. The patient will need a nicotine patch. May consider starting buproprion on the patient. (2) Chronic systolic (congestive) heart failure Current Visit: Yes Status: Acute Plan: currently stable. Continue spirnolactone, and furosemide. (3) Diabetes Current Visit: No Status: Acute Plan: will continue him on a sliding scale will keep him on a ada diet. will start a long acting insullin in the morning Qualifiers: Diabetes mellitus type: type 2 Diabetes mellitus fci insulin use: with fci use Discharge Plan: Home - Advance Directives Does patient have a Living Will: No Does patient have a Durable POA for Healthcare: No - Code Status/Comfort Care Code Status Assessed: Yes Code Status: Full Code Physician Review: Patient Assessed, Agree with Above Assessment and Plan Critical Care: No Time Spent Managing Pts Care (In Minutes): 75
[2020-12-07] MEDS: ENOXAPARIN 40 MG/0.4 ML SQ SCH (18:24)
[2020-12-07] MEDS: NICOTINE 21 MG/PAT TD SCH (18:27)
[2020-12-07 19:13] LABS: Urine Appearance CLEAR (Clear); Urine Bilirubin NEGATIVE (Negative); Urine Blood 1+ (Negative); Urine Color YELLOW (Yellow); Urine Glucose TRACE (Negative); Urine Protein 1+ (Negative); Urine Specific Gravity 1.015 (1.005-1.030); Urine pH 6.5 (5.0-7.0)
[2020-12-07 19:15] LABS: Urine Microscopic Reflex ORDER UMIC
[2020-12-07 19:21] LABS: Urine Bacteria <20 /HPF (NONE SEEN)
[2020-12-07] MEDS: SPIRONOLACTONE 25 MG TABLET PO SCH (20:10)
[2020-12-07] MEDS: carvediloL 6.25 MG TAB PO SCH (20:10)
[2020-12-07] MEDS: INSULIN -REGULAR HUMAN 50 UNIT/0.5 ML ML SQ SCH (20:11)
[2020-12-07] MEDS: MORPHINE 2 MG/ML SYR IV PRN (20:12)
[2020-12-08] MEDS: MORPHINE 2 MG/ML SYR IV PRN ×3 (02:11→21:23)
[2020-12-08 06:27] LABS: Absolute Lymphocytes (CBC) 2.9 K/uL (0.7-4.9); Basophils % 0.9 % (0-1.3); Hematocrit 48.6 % (39.6-49.0); Lymphocytes % 19.2 % (15.3-44.8); MPV 9.2 fL (7.6-11.3); RBC Red Blood Cell Count 5.38 M/uL (4.33-5.43)
[2020-12-08] MEDS: INSULIN -REGULAR HUMAN 50 UNIT/0.5 ML ML SQ SCH ×4 (07:30→21:17)
[2020-12-08] MEDS: LEVALBUTEROL 0.63 MG/3 ML NEB NEB PRN ×3 (07:52→22:19)
[2020-12-08] MEDS: carvediloL 6.25 MG TAB PO SCH ×2 (08:09→21:17)
[2020-12-08] MEDS: ASPIRIN EC 81 MG TAB PO SCH (08:13)
[2020-12-08] MEDS: FUROSEMIDE 40 MG TABLET PO SCH (08:13)
[2020-12-08] MEDS: SPIRONOLACTONE 25 MG TABLET PO SCH ×2 (08:13→21:17)
[2020-12-08] MEDS: PANTOPRAZOLE 40MG TABLET PO SCH (08:13)
[2020-12-08] MEDS: TAMSULOSIN 0.4 MG SR CAP PO SCH (08:13)
[2020-12-08] MEDS: NICOTINE 21 MG/PAT TD SCH (08:13)
[2020-12-08] MEDS ORDERED: D50W 25 GM/50 ML SYRINGE IV PRN (08:33)
[2020-12-08] MEDS ORDERED: GLUCAGON 1 MG/VIAL IM PRN (08:33)
--- NOTE | 2020-12-08 08:40 | P.PN ---
Subjective Date of Service: 12/08/20 Primary Care Provider: Cecelia Chief Complaint: Copd Exacerbation Subjective: Improving Review of Systems 10-point ROS is otherwise unremarkable Respiratory: Shortness of Breath, SOB with Excertion Physical Examination - Vital Signs Temperature: 96.8 F Blood Pressure: 130/68 Pulse: 85 Respirations: 19 Pulse Ox (%): 96 - Physical Exam General: Alert, In no apparent distress HEENT: Atraumatic, PERRLA, EOMI Neck: Supple, JVD not distended Respiratory: Normal air movement, Expiratory wheezes Cardiovascular: Regular rate/rhythm, Normal S1 S2 Gastrointestinal: Normal bowel sounds, No tenderness Musculoskeletal: No tenderness Integumentary: No rashes Neurological: Normal speech, Normal tone, Normal affect Lymphatics: No axilla or inguinal lymphadenopathy - Studies Laboratory Data (last 24 hrs) 12/08/20 06:17: WBC 15.30 H D, Hgb 15.2, Hct 48.6, Plt Count 183 12/07/20 17:00: Sodium 137, Potassium 5.4 H, BUN 43 H, Creatinine 1.91 H, Glucose 239 H Assessment & Plan - Problems (Diagnosis) (1) Acute exacerbation of chronic obstructive pulmonary disease (COPD) Current Visit: Yes Status: Acute Plan: will admit him to the hospital and start him on breathing treatments and steroids. The patient will need a nicotine patch. May consider starting buproprion on the patient. 12/08 improving. Most likely due to his not have nicotine. Still wheezing. Will keep him one more day. (2) Chronic systolic (congestive) heart failure Current Visit: Yes Status: Acute Plan: currently stable. Continue spirnolactone, and furosemide. (3) Diabetes Current Visit: No Status: Acute Plan: will continue him on a sliding scale will keep him on a ada diet. will start a long acting insullin in the morning 12/08 Will start him on levemir for the blood sugars. start gabapentin for the neuropathy and decrease his morphine. Qualifiers: Diabetes mellitus type: type 2 Diabetes mellitus emt intermediate insulin use: emt intermediate use Diabetes mellitus complication detail: with polyneuropathy (4) Nicotine dependence Current Visit: Yes Status: Chronic Plan: continue nicotine patch. Start buproprion Qualifiers: Nicotine product type: cigarettes Substance use status: uncomplicated Qualified Code(s): F17.210 - Nicotine dependence, cigarettes, uncomplicated Discharge Plan: Home Plan to discharge in: 24 Hours - Code Status/Comfort Care Code Status Assessed: No Code Status: Full Code Physician Review: Patient Assessed, Agree with Above Assessment and Plan Critical Care: No Time Spent Managing Pts Care (In Minutes): 30
[2020-12-08 08:47] LABS: Blood Morphology Comment NOT SEEN (NOT SEEN); Platelet Estimate ADEQ
[2020-12-08] MEDS: GABAPENTIN 100 MG CAP PO SCH ×3 (12:22→21:00)
[2020-12-08] MEDS: BUPROPION HCL XL 150 MG TAB PO SCH (12:22)
[2020-12-08] MEDS: ENOXAPARIN 40 MG/0.4 ML SQ SCH (16:50)
[2020-12-08] MEDS ORDERED: PREGABALIN 75 MG CAP PO SCH (21:15)
[2020-12-09] MEDS: LEVALBUTEROL 0.63 MG/3 ML NEB NEB PRN ×2 (02:26→08:35)
[2020-12-09] MEDS: MORPHINE 2 MG/ML SYR IV PRN (04:26)
[2020-12-09 06:39] LABS: Absolute Lymphocytes (CBC) 2.4 K/uL (0.7-4.9); Basophils % 0.7 % (0-1.3); Hematocrit 47.7 % (39.6-49.0); Lymphocytes % 20.1 % (15.3-44.8); MPV 9.7 fL (7.6-11.3); RBC Red Blood Cell Count 5.28 M/uL (4.33-5.43)
[2020-12-09] MEDS: INSULIN -REGULAR HUMAN 50 UNIT/0.5 ML ML SQ SCH (07:30)
[2020-12-09] MEDS ORDERED: INSULIN GLARGINE 100 UNITS/ML SQ SCH (08:00)
[2020-12-09 08:27] VITALS: TEMP 97
[2020-12-09] MEDS: NICOTINE 21 MG/PAT TD SCH (08:45)
--- NOTE | 2020-12-09 08:47 | P.DS ---
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 He was sob and using accessory muscles Pulse ox was normal at 93% on Room air. He was smelling strongly of cigarettes. The patient states he only had one. He was released from the hospital last week. The patient was sent home on Prednisone. Yesterday would have been his last day. The patient has a history of living this way. However on my last visit with him in the hospital he was breathing comfortable Hospital Course: Patient was treated with steroid and breathing treatment. He had neuropathic pain in his legs. Which we started him on gabapentin. Which caused dizziness. Switched the patient to pregabalin. Which he did much better on and was very happy this morning. Will recheck his creatine. Will discharge him home if it is improving. Will give him a steroid taper, nicotine patch, buproprion and pregabalin. 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 Vital Signs/Physical Exam: Temp Pulse Resp BP Pulse Ox 97 F 88 18 110/79 91 12/09/20 08:00 12/09/20 08:00 12/09/20 08:00 12/09/20 04:00 12/09/20 08:00 General: Alert, In no apparent distress HEENT: Atraumatic, PERRLA, EOMI Neck: Supple, JVD not distended Respiratory: Normal air movement, Expiratory wheezes (much improved from yesterday ) Cardiovascular: Regular rate/rhythm, Normal S1 S2 Gastrointestinal: Normal bowel sounds, No tenderness Musculoskeletal: No tenderness Integumentary: No rashes Neurological: Normal speech, Normal tone, Normal affect Lymphatics: No axilla or inguinal lymphadenopathy Laboratory Data at Discharge: WBC 12.00 K/uL (4.3-10.9) H D 12/09/20 06:14 Hgb 15.0 g/dL (13.6-17.9) 12/09/20 06:14 Hct 47.7 % (39.6-49.0) 12/09/20 06:14 Plt Count 168 K/uL (152-406) 12/09/20 06:14 Sodium 137 mmol/L (136-145) 12/07/20 17:00 Potassium 5.4 mmol/L (3.5-5.1) H 12/07/20 17:00 BUN 43 mg/dL (7-18) H 12/07/20 17:00 Creatinine 1.91 mg/dL (0.55-1.3) H 12/07/20 17:00 Glucose 239 mg/dL (74-106) H 12/07/20 17:00 Home Medications: Insulin 70/30 NPH/Reg Human [Novolin 70/30*] 20 unit SQ BID 11/27/20 Polyethyl Gly 3350 [Glycolax*] 1 packet PO DAILY PRN 11/27/20 Spironolactone [Aldactone*] 1 tab PO BID 11/27/20 Tamsulosin HCl 1 tab PO DAILY 11/27/20 Arformoterol Tartrate [Brovana] 15 mcg NEB BIDRESP vial.neb 12/01/20 Aspirin [Aspirin EC 81 MG] 81 mg PO DAILY 30 Days #30 tablet. 12/01/20 Fluconazole [Diflucan] 200 mg PO DAILY 12 Days #12 tablet 12/01/20 Furosemide [Lasix*] 40 mg PO DAILY 30 Days #30 tab 12/01/20 Lisinopril [Zestril] 2.5 mg PO DAILY 30 Days #30 tablet 12/01/20 carvediloL [Coreg*] 6.25 mg PO BID 30 Days #60 tab 12/01/20 levoFLOXacin [Levaquin*] 500 mg PO DAILY 7 Days #7 tab 12/01/20 Bupropion *Xl* [Wellbutrin XL*] 75 mg PO DAILY 90 Days #90 tab 12/09/20 Levalbuterol [Xopenex*] 0.63 mg NEB [id number] PRN 30 Days #120 vial 12/09/20 Nicotine [Nicoderm*] 21 mg TD DAILY 30 Days #30 patch.td24 12/09/20 Pregabalin [Lyrica*] 75 mg PO BEDTIME 90 Days #90 tab 12/09/20 predniSONE [Prednisone*] 10 mg PO BID 9 Days #21 tab 12/09/20 New Medications: Pregabalin [Lyrica*] 75 mg PO BEDTIME 90 Days #90 tab Nicotine [Nicoderm*] 21 mg TD DAILY 30 Days #30 patch.td24 predniSONE [Prednisone*] 10 mg PO BID 9 Days #21 tab Bupropion *Xl* [Wellbutrin XL*] 75 mg PO DAILY 90 Days #90 tab Levalbuterol [Xopenex*] 0.63 mg NEB [id number] PRN 30 Days #120 vial PRN Reason: Shortness Of Breath Diet: ADA Activity: Ad mikala Physician Review: Patient Assessed, Agree with Above Assessment and Plan Time spent managing pt's care (in minutes): 35
[2020-12-09] MEDS: PANTOPRAZOLE 40MG TABLET PO SCH (08:48)
[2020-12-09] MEDS: ASPIRIN EC 81 MG TAB PO SCH (08:48)
[2020-12-09] MEDS: TAMSULOSIN 0.4 MG SR CAP PO SCH (08:49)
[2020-12-09] MEDS: SPIRONOLACTONE 25 MG TABLET PO SCH (08:53)
[2020-12-09] MEDS: carvediloL 6.25 MG TAB PO SCH (08:54)
[2020-12-09] MEDS: FUROSEMIDE 40 MG TABLET PO SCH (08:54)
[2020-12-09] MEDS: BUPROPION HCL XL 150 MG TAB PO SCH (08:57)
[2020-12-09 08:58] VITALS: BP 120/76
[2020-12-09 09:46] VITALS: O2SAT 99
== END 2020-12-09 10:45 | disposition home or self-care (01) | DRG 191 ==
LOC: UNDOADMOB 15:46 → ERHOLD 15:46 → OBSVTOIN 16:04 → 2ND 16:04
PROVIDERS: ADMIT Internal Medicine; ATTEND Internal Medicine
DX: J44.1 Chronic obstructive pulmonary disease with (acute) exacerbation (principal); I50.22 Chronic systolic (congestive) heart failure; E11.42 Type 2 diabetes mellitus with diabetic polyneuropathy; F17.210 Nicotine dependence, cigarettes, uncomplicated; Z88.8 Allergy status to other drugs, medicaments and biological substances; Z79.4 Long term (current) use of insulin; Z79.82 Long term (current) use of aspirin; Z79.52 Long term (current) use of systemic steroids; Z79.899 Other long term (current) drug therapy; Z56.0 Unemployment, unspecified
CPT/HCPCS: 36415; 80048; 81003; 81015; 82565; 82947; 85025; 94640; J1650; J1815; J2270

== ENCOUNTER 2021-02-03 13:00 | Day surgery (SDC) | payer OTHER ==
--- NOTE | 2021-02-02 14:31 | RAD REPORT ---
EXAM DESCRIPTION: Carola Cuevas And Tony (2 Views)02/02/2021 2:23 pm CLINICAL HISTORY: Hypertension/preop COMPARISON: November 2020 FINDINGS: The lungs appear clear of acute infiltrate. The heart is mildly enlarged IMPRESSION: No acute abnormalities displayed
[2021-02-02 14:53] LABS: Absolute Lymphocytes (CBC) 2.9 K/uL (0.7-4.9); Basophils % 0.7 % (0-1.3); Hematocrit 45.1 % (39.6-49.0); Lymphocytes % 23.8 % (15.3-44.8); MPV 9.5 fL (7.6-11.3); RBC Red Blood Cell Count 5.07 M/uL (4.33-5.43)
[2021-02-02 14:55] LABS: Protime INR 0.88
[2021-02-02 15:30] LABS: Potassium 5.5 mmol/L (3.5-5.1)
[2021-02-03] MEDS ORDERED: NA CHLORIDE 0.9% 0 ML ONE (13:17)
[2021-02-03 15:34] VITALS: BP 92/50; TEMP 98.3; O2SAT 96
== END 2021-02-03 14:30 | disposition still patient (30) ==
LOC: CCL 13:00
PROVIDERS: ATTEND Internal Medicine
DX: I20.0 Unstable angina (principal); R06.00 Dyspnea, unspecified; Z53.8 Procedure and treatment not carried out for other reasons; Z20.822 Contact with and (suspected) exposure to COVID-19
CPT/HCPCS: 36415; 71046; 80048; 82947; 85025; 85610; 85730; 93005; J7040; U0003

== ENCOUNTER 2021-02-03 13:58 | Inpatient (IN) | payer OTHER ==
[2021-02-03] MEDS ORDERED: ALBUTEROL 2.5 MG/3 ML NEB SOL ONE (16:39)
[2021-02-03 16:40] LABS: Basophils % 1.1 % (0-1.3); Hematocrit 46.2 % (39.6-49.0); Lymphocytes % 19.5 % (15.3-44.8); MPV 9.3 fL (7.6-11.3); RBC Red Blood Cell Count 5.27 M/uL (4.33-5.43)
[2021-02-03 16:57] LABS: Potassium 5.4 mmol/L (3.5-5.1)
--- NOTE | 2021-02-03 17:48 | RAD REPORT ---
EXAM DESCRIPTION: RAD - Chest Single View - 02/03/2021 5:42 pm CLINICAL HISTORY: Is in shortness of breath COMPARISON: Chest Pa And Lat (2 Views) dated 02/02/2021; Chest Single View dated 11/26/2020; Chest Si ngle View dated 07/20/2020; CHEST SINGLE VIEW dated 09/06/2010 FINDINGS: Lines: None. Lungs: No evidence of edema or pneumonia. Pleural: No significant pleural effusions or pneumothorax. Cardiac: The heart size is within normal limits. Bones: No acute fractures. Other: IMPRESSION: No acute cardiopulmonary disease.
[2021-02-03] MEDS ORDERED: INSULIN -REGULAR HUMAN 50 UNIT/0.5 ML ML ONE (18:01)
--- NOTE | 2021-02-03 18:09 | EDPHYS ---
Physician Documentation [facility] Name: Ernesto Lara Age: 55 yrs Sex: Male : 1965 Arrival Date: 02/03/2021 Time: 14:24 Bed 17 Private MD: ED Physician Riley Nelson HPI: 02/04 07:56 This 55 yrs old Male presents to ER via Stretcher with complaints of General malaise, I kdr Wiley tension and hyperglycemia. 07:56 Onset: The symptoms/episode began/occurred just prior to arrival. Severity of symptoms: kdr At their worst the symptoms were mild moderate just prior to arrival. The patient has experienced similar episodes in the past, a few times. The patient has been recently seen by a physician: Dr. Shore. Patient was sent by Dr. Shore from the Translation [facility] where he was scheduled to have a cardiac cath today. Upon his presentation there, he was noted to have a blood pressure in the 90s over 50s, fingerstick blood glucose of 410 and was mildly tachycardic. Patient states that he was shown by echo to have an ejection fraction of 25% . Historical: - Allergies: 02/03 14:42 Pseudoephedrine; ap3 14:42 triprolidine; ap3 - PMHx: 14:42 Bronchitis; COPD; diabetes mellitus; Hypertensive disorder; mass L lung; ap3 - Immunization history:: Adult Immunizations up to date, Client reports having NOT received the Covid vaccine. - Social history:: Smoking status: Patient reports the use of cigarette tobacco products, smokes one-half pack cigarettes per day. ROS: 02/04 07:56 Constitutional: Negative for fever, chills, and weight loss, Eyes: Negative for injury, kdr pain, redness, and discharge, Neck: Negative for injury, pain, and swelling, Cardiovascular: Negative for chest pain, palpitations, and edema, Respiratory: Negative for cough, wheezing, and pleuritic chest pain, he has had increasing shortness of breath secondary to not being able to use his inhaler since last evening Abdomen/GI: Negative for abdominal pain, nausea, vomiting, diarrhea, and constipation, Back: Negative for injury and pain, : Negative for injury, bleeding, discharge, and swelling, MS/Extremity: Negative for injury and deformity, Skin: Negative for injury, rash, and discoloration, Neuro: Negative for headache, weakness, numbness, tingling, and seizure activity. Psych: Negative for depression, anxiety, suicide ideation, homicidal ideation, and hallucinations, Allergy/Immunology: Negative for hives, rash, and allergies, Endocrine: Negative for neck swelling, polydipsia, polyuria, polyphagia, and marked weight changes, Hematologic/Lymphatic: Negative for swollen nodes, abnormal bleeding, and unusual bruising. Respiratory: Positive for dyspnea on exertion, shortness of breath, Negative for hemoptysis, orthopnea, pleurisy, sputum production. Exam: 07:56 Constitutional: This is a well developed, well nourished patient who is awake, alert, kdr and in no acute distress. Head/Face: Normocephalic, atraumatic. Eyes: Pupils equal round and reactive to light, extra-ocular motions intact. Lids and lashes normal. Conjunctiva and sclera are non-icteric and not injected. Cornea within normal limits. Periorbital areas with no swelling, redness, or edema. Neck: Trachea midline, no thyromegaly or masses palpated, and no cervical lymphadenopathy. Supple, full range of motion without nuchal rigidity, or vertebral point tenderness. No Meningismus. Chest/axilla: Normal chest wall appearance and motion. Nontender with no deformity. No lesions are appreciated. Cardiovascular: Regular rate and rhythm with a normal S1 and S2. No gallops, murmurs, or rubs. Normal PMI, no JVD. No pulse deficits. Abdomen/GI: Soft, non-tender, with normal bowel sounds. No distension or tympany. No guarding or rebound. No evidence of tenderness throughout. Back: No spinal tenderness. No costovertebral tenderness. Full range of motion. Skin: Warm, dry with normal turgor. Normal color with no rashes, no lesions, and no evidence of cellulitis. MS/ Extremity: Pulses equal, no cyanosis. Neurovascular intact. Full, normal range of motion. Neuro: Awake and alert, GCS 15, oriented to person, place, time, and situation. Cranial nerves II-XII grossly intact. Motor strength 5/5 in all extremities. Sensory grossly intact. Cerebellar exam normal. Normal gait. Psych: Awake, alert, with orientation to person, place and time. Behavior, mood, and affect are within normal limits. 07:56 Respiratory: mild respiratory distress is noted, Respirations: normal, Breath sounds: rales, that are mild, are heard diffusely, wheezing: that is mild, is heard diffusely. Vital Signs: 02/03 14:24 BP 104 / 61; Resp 18; Pulse Ox 96% ; Weight 97.07 kg; Height 5 ft. 9 in. (175.26 cm); ap3 14:45 Pulse 108 MON; ap3 15:12 BP 115 / 65; Pulse 102; Pulse Ox 95% on 2 lpm NC; ap3 16:23 BP 102 / 84; Pulse 107; Pulse Ox 96% 2 lpm ; ap3 18:06 BP 127 / 86; Pulse 106; Pulse Ox 95% on 2 lpm NC; ap3 21:04 BP 121 / 81; Pulse 96; Resp 20; Pulse Ox 94% on 3 lpm NC; sm5 14:24 Body Mass Index 31.60 (97.07 kg, 175.26 cm) ap3 MDM: 18:08 Patient medically screened. kdr 02/04 07:56 Data reviewed: vital signs, nurses notes, lab test result(s), radiologic studies. kdr Counseling: I had a detailed discussion with the patient and/or guardian regarding: the historical points, exam findings, and any diagnostic results supporting the discharge/admit diagnosis, lab results, radiology results, the need for further work-up and treatment in the hospital. Physician consultation: Jay Rai MD and will see patient in ED, immediately. Admission orders: after a detailed discussion of the patient's condition and case, the admit orders are written by me. 02/03 15:53 Order name: Glucose, Ancillary Testing; Complete Time: 17:23 EDDE 02/03 16:06 Order name: CBC with Diff; Complete Time: 17:23 kdr 02/03 16:06 Order name: Chem 7; Complete Time: 17:23 [facility] 02/03 16:59 Order name: LFT's kdr 02/03 16:59 Order name: Magnesium kdr 02/03 16:59 Order name: NT PRO-BNP kdr 02/03 16:59 Order name: PT-INR kdr 02/03 16:59 Order name: Troponin (emerg Dept Use Only) kdr 02/03 17:00 Order name: Liver (Hepatic) Function EDDE 02/03 17:00 Order name: Magnesium EDMS 02/03 17:00 Order name: NT PRO-BNP EDMS 02/03 18:07 Order name: Glucose, Ancillary Testing EDMS 02/03 18:13 Order name: Basic Metabolic Panel EDMS 02/03 18:13 Order name: Basic Metabolic Panel EDDE 02/03 16:59 Order name: XRAY Chest (1 view); Complete Time: 18:02 kdr 02/03 16:59 Order name: EKG; Complete Time: 17:00 kdr 02/03 17:01 Order name: Diet Ada 1800 Reuben; Complete Time: 17:01 iw 02/03 18:13 Order name: CONS Physician Consult EDDE 02/03 18:13 Order name: EKG Electrocardiogram EDDE 02/03 18:13 Order name: EKG Electrocardiogram EDDE 02/03 18:13 Order name: EKG Electrocardiogram EDDE 02/03 18:13 Order name: EKG Electrocardiogram EDDE 02/03 18:13 Order name: CBC with Automated Diff EDDE 02/03 18:13 Order name: CBC with Automated Diff EDDE 02/03 18:13 Order name: Troponin I EDDE 02/03 18:15 Order name: SARS-COV-2 RT PCR (Document "Date of Onset" if Symptomatic) em1 02/03 18:44 Order name: Glucose, Ancillary Testing EDDE 02/03 20:03 Order name: Glucose, Ancillary Testing EDDE 02/03 16:59 Order name: Cardiac monitoring; Complete Time: 17:11 kdr 02/03 16:59 Order name: EKG - Nurse/Tech; Complete Time: 17:11 kdr 02/03 16:59 Order name: IV Saline Lock; Complete Time: 17:11 kdr 02/03 16:59 Order name: Labs collected and sent; Complete Time: 17:11 kdr 02/03 16:59 Order name: O2 Per Protocol; Complete Time: 17:11 kdr 02/03 16:59 Order name: O2 Sat Monitoring; Complete Time: 17:11 kdr 02/03 17:00 Order name: FSBS: Every 30 minutes x 2 ; Complete Time: 18:06 kdr 02/03 17:00 Order name: Misc. Order: Diabetic tray 2000-calorie ; Complete Time: 17:11 kdr Administered Medications: 02/03 16:50 Drug: Albuterol 1.25 mg Route: Inhalation; ap3 18:02 Drug: Insulin Regular Human 10 units {Co-Signature: ap3 (Mary Ca RN).} Route: jg9 IVP; Site: right antecubital; 18:55 Follow up: Response: No adverse reaction ap3 Disposition Summary: 02/03/21 18:08 Hospitalization Ordered Hospitalization Status: Inpatient Admission kdr Provider: Jay Rai Location: Telemetry/MedSurg (Inpatient) kdr Condition: Fair kdr Problem: an acute exacerbation kdr Symptoms: are unchanged kdr Bed/Room Type: Standard kdr Room Assignment: 211(02/03/21 20:03) mw Diagnosis - Facial weakness kdr - Hyperglycemia, unspecified kdr - Hyperkalemia kdr - Cardiomyopathy, unspecified kdr Forms: - Medication Reconciliation Form kdr - SBAR form kdr Signatures: Dispatcher [employer] Radhika Pichardo RN RN Riley Nelson MD MD kdr Prokisch, Amanda, RN RN ap3 Cici Brennan jg9 Mary Ca RN ap3 Corrections: (The following items were deleted from the chart) 20:03 18:08 kdr mw
--- NOTE | 2021-02-03 18:09 | ER ---
Nurse's Notes [facility] Name: Ernesto Lara Age: 55 yrs Sex: Male : 1965 Arrival Date: 02/03/2021 Time: 14:24 Bed 17 Private MD: Diagnosis: Facial weakness;Hyperglycemia, unspecified;Hyperkalemia;Cardiomyopathy, unspecified Presentation: 02/03 14:24 Chief complaint: PACU nurse brought patient over from cath lab radiological technologist. it is reported that the ap3 patient was to have a heart cath today, however prior to the cath, the patient's blood pressure was 90s/50s, FSBS was 410, and patient was tachycardic. Dr. Guzman then decided to not do the cath but to have the patient come to the ER to be evaluated. Coronavirus screen: The client reports previous COVID testing was negative. Date of collection: February 02, 2021. Ebola Screen: No symptoms or risks identified at this time. Initial Sepsis Screen: Does the patient meet any 2 criteria? No. Patient's initial sepsis screen is negative. Does the patient have a suspected source of infection? No. Patient's initial sepsis screen is negative. Risk Assessment: Do you want to hurt yourself or someone else? Patient reports no desire to harm self or others. Onset of symptoms was February 03, 2021. 14:24 Method Of Arrival: Stretcher ap3 14:24 Acuity: ROJELIO 3 ap3 Historical: - Allergies: 14:42 Pseudoephedrine; ap3 14:42 triprolidine; ap3 - PMHx: 14:42 Bronchitis; COPD; diabetes mellitus; Hypertensive disorder; mass L lung; ap3 - Immunization history:: Adult Immunizations up to date, Client reports having NOT received the Covid vaccine. - Social history:: Smoking status: Patient reports the use of cigarette tobacco products, smokes one-half pack cigarettes per day. Screenin:32 Abuse screen: Denies threats or abuse. Nutritional screening: No deficits noted. ap3 Tuberculosis screening: No symptoms or risk factors identified. Fall Risk Fall in past 12 months (25 points). Secondary diagnosis (15 points) impaired mobility, IV access (20 points). Ambulatory Aid- None/Bed Rest/Nurse Assist (0 pts). Gait- Weak (10 pts.). Mental Status- Oriented to own ability (0 pts). Total Le Fall Scale indicates High Risk Score (45 or more points). Fall prevention measures have been instituted. Side Rails Up X 2 Placed Close to Nursing Station Frequent Obs/Assessments Occuring Family Present and informed to notify staff if the need to leave the bedside As available patient and family educated on Fall Prevention Program and Strategies. Assessment: 14:42 General: Appears comfortable, Behavior is calm, cooperative, appropriate for age. Pain: ap3 Denies pain. Neuro: Level of Consciousness is awake, alert, obeys commands, Oriented to person, place, time, situation, Appropriate for age Gait is unsteady, Speech is normal. Cardiovascular: Patient's skin is warm and dry. Rhythm is sinus tachycardia. Respiratory: Airway is patent Respiratory effort is even, Respiratory pattern is regular, Breath sounds with crackles bilaterally. Breath sounds are diminished in left posterior lower lobe, right posterior middle lobe and right posterior lower lobe. 15:13 Reassessment: Patient and/or family updated on plan of care and expected duration. Pain ap3 level reassessed. Patient is alert, oriented x 3, equal unlabored respirations, skin warm/dry/pink. visitors at the bedside. 16:24 Reassessment: Patient and/or family updated on plan of care and expected duration. Pain ap3 level reassessed. Patient is alert, oriented x 3, equal unlabored respirations, skin warm/dry/pink. 18:06 Reassessment: Patient and/or family updated on plan of care and expected duration. Pain ap3 level reassessed. Patient is alert, oriented x 3, equal unlabored respirations, skin warm/dry/pink. 19:00 Reassessment: Patient and/or family updated on plan of care and expected duration. Pain sm5 level reassessed. 20:00 Reassessment: Patient appears in no apparent distress at this time. sm5 21:00 Reassessment: No changes from previously documented assessment. sm5 Vital Signs: 14:24 BP 104 / 61; Resp 18; Pulse Ox 96% ; Weight 97.07 kg; Height 5 ft. 9 in. (175.26 cm); ap3 14:45 Pulse 108 MON; ap3 15:12 BP 115 / 65; Pulse 102; Pulse Ox 95% on 2 lpm NC; ap3 16:23 BP 102 / 84; Pulse 107; Pulse Ox 96% 2 lpm ; ap3 18:06 BP 127 / 86; Pulse 106; Pulse Ox 95% on 2 lpm NC; ap3 21:04 BP 121 / 81; Pulse 96; Resp 20; Pulse Ox 94% on 3 lpm NC; sm5 14:24 Body Mass Index 31.60 (97.07 kg, 175.26 cm) ap3 ED Course: 14:24 Patient arrived in ED. ap3 14:32 Triage completed. ap3 14:44 Arm band placed on left wrist. EKG done per protocol. Performed by ED Staff. Shown to ap3 ED physician. 14:44 Patient has correct armband on for positive identification. Placed in gown. Bed in low ap3 position. Call light in reach. Side rails up X2. Adult w/ patient. library monitor on. Pulse ox on. NIBP on. Door closed. Noise minimized. Warm blanket given. 14:50 Riley Nelson MD is Attending Physician. kdr 15:12 Mary Ca, RN is Primary Nurse. ap3 16:33 ED physician to see patient. ap3 17:42 XRAY Chest (1 view) In Process Unspecified. EDMS 18:07 Jay Rai MD is Hospitalizing Provider. kdr 21:05 No provider procedures requiring assistance completed. Patient admitted, IV remains in [address] Administered Medications: 16:50 Drug: Albuterol 1.25 mg Route: Inhalation; ap3 18:02 Drug: Insulin Regular Human 10 units {Co-Signature: ap3 (Mary Ca RN).} Route: jg9 IVP; Site: right antecubital; 18:55 Follow up: Response: No adverse reaction ap3 Outcome: 18:08 Decision to Hospitalize by Provider. kdr 21:05 Admitted to Med/surg accompanied by nurse, via wheelchair, with oxygen, with chart. 5 21:05 Condition: good 21:05 Instructed on the need for admit. 21:06 Patient left the ED. 5 Signatures: Dispatcher [employer] EDIL Riley Nelson MD MD kdr Mary Ca RN RN ap3 Nora Harris RN RN [facility] Cici Brennan jg9 Mary Ca RN ap3
[2021-02-03] MEDS ORDERED: GLUCAGON 1 MG/VIAL IM PRN ×2 (18:10→21:20)
[2021-02-03] MEDS ORDERED: ACETAMINOPHEN 500 MG TAB PO PRN (18:10)
[2021-02-03] MEDS ORDERED: D50W 25 GM/50 ML SYRINGE IV PRN ×2 (18:10→21:20)
[2021-02-03 18:20] LABS: Protime INR 0.98
[2021-02-03 18:23] LABS: ALT/SGPT 43 U/L (12-78); AST/SGOT 19 U/L (15-37); Albumin 2.8 g/dL (3.4-5.0); Alkaline Phosphatase 142 U/L (45-117); Bilirubin Direct 0.1 mg/dL (0-0.2); Bilirubin Total 0.3 mg/dL (0.2-1.0); NT PRO-BNP 712 pg/mL (<125); Protein, Total 7.3 g/dL (6.4-8.2); Troponin (Emerg Dept Use Only) < 0.02 ng/mL (0.0-0.045)
--- NOTE | 2021-02-03 18:57 | P.HP ---
Certification for Inpatient Patient admitted to: Inpatient With expected LOS: >2 Midnights Practitioner: I am a practitioner with admitting privileges, knowledge of patient current condition, hospital course, and medical plan of care. Services: Services provided to patient in accordance with Admission requirements found in Title 42 Section 412.3 of the Code of Federal Regulations Patient History Date of Service: 02/03/21 Primary Care Provider: Cecelia Reason for admission: hypotension. unstable angina History of Present Illness: Patient who was sent to Dr. Guzman for chest pain. He was brought to the veterinary laboratory diagnostician for an elective cath. The patient was found to be hypotensive, tachycardic and the cath was held. He was sent to the ER for admission. He was found to have an elevated glucose. Normal rapid troponin. The patient is currently resting comfortable. Not sure why he was sent to the ER. Allergies pseudoephedrine [From Actifed] Adverse Reaction (Verified 11/26/20 22:26) knock me out triprolidine [From Actifed] Adverse Reaction (Verified 11/26/20 22:26) knock me out Home Medications: Insulin 70/30 NPH/Reg Human [Novolin 70/30*] 20 unit SQ BID 11/27/20 Polyethyl Gly 3350 [Glycolax*] 1 packet PO DAILY PRN 11/27/20 Spironolactone [Aldactone*] 1 tab PO BID 11/27/20 Tamsulosin HCl 1 tab PO DAILY 11/27/20 Arformoterol Tartrate [Brovana] 15 mcg NEB BIDRESP vial.neb 12/01/20 Aspirin [Aspirin EC 81 MG] 81 mg PO DAILY 30 Days #30 tablet. 12/01/20 Fluconazole [Diflucan] 200 mg PO DAILY 12 Days #12 tablet 12/01/20 Furosemide [Lasix*] 40 mg PO DAILY 30 Days #30 tab 12/01/20 Lisinopril [Zestril] 2.5 mg PO DAILY 30 Days #30 tablet 12/01/20 carvediloL [Coreg*] 6.25 mg PO BID 30 Days #60 tab 12/01/20 levoFLOXacin [Levaquin*] 500 mg PO DAILY 7 Days #7 tab 12/01/20 Bupropion *Xl* [Wellbutrin XL*] 75 mg PO DAILY 90 Days #90 tab 12/09/20 Levalbuterol [Xopenex*] 0.63 mg NEB [id number] PRN 30 Days #120 vial 12/09/20 Nicotine [Nicoderm*] 21 mg TD DAILY 30 Days #30 patch.td24 12/09/20 Pregabalin [Lyrica*] 75 mg PO BEDTIME 90 Days #90 tab 12/09/20 predniSONE [Prednisone*] 10 mg PO BID 9 Days #21 tab 12/09/20 - Past Medical/Surgical History Diabetic: Yes -: T2DM -: bronchitis -: CHF -: COPD -: leg reconstruction -: sx on right leg -: sx left foot -: sx left side of the body Psychosocial/ Personal History: Unemployed due to back pain. Lives at home with . - Family History Mother -: Cancer Notes: asbestosis Brother -: Diabetes, Cancer Notes: asbestosis Father -: Diabetes - Social History Alcohol use: No CD- Drugs: No Caffeine use: Yes Review of Systems 10-point ROS is otherwise unremarkable Cardiovascular: Chest Pain Physical Examination - Physical Exam General: Alert, In no apparent distress HEENT: Atraumatic, PERRLA, Mucous membr. moist/pink, EOMI, Sclerae nonicteric Neck: Supple, 2+ carotid pulse no bruit, No LAD, Without JVD or thyroid abnormality Respiratory: Clear to auscultation bilaterally, Normal air movement Cardiovascular: Regular rate/rhythm, Normal S1 S2 Gastrointestinal: Normal bowel sounds, No tenderness Musculoskeletal: No tenderness Integumentary: No rashes Neurological: Normal gait, Normal speech, Normal strength at 5/5 x4 extr, Normal tone, Normal affect Lymphatics: No axilla or inguinal lymphadenopathy - Studies Laboratory Data (last 24 hrs) 02/03/21 17:54: PT 11.3, INR 0.98 02/03/21 17:54: Magnesium 2.0, Total Bilirubin 0.3, AST 19, ALT 43, Alkaline Phosphatase 142 H 02/03/21 16:22: Sodium 132 L, Potassium 5.4 H, BUN 30 H, Creatinine 2.12 H, Glucose 463 H* 02/03/21 16:22: WBC 15.20 H D, Hgb 14.5, Hct 46.2, Plt Count 196 Assessment and Plan - Problems (Diagnosis) (1) Chest pain Current Visit: Yes Status: Acute Plan: Will consult Dr. Guzman. monitor troponins. Will start her on fluids. Qualifiers: Ischemic chest pain type: stable angina pectoris (2) Tachycardia Current Visit: Yes Status: Acute Plan: restart the carvedilol. Will adjust her medications. (3) CKD stage 4 due to type 2 diabetes mellitus Current Visit: Yes Status: Acute Plan: normal his gfr is between 40-50 will continue fluids. (4) Diabetes Current Visit: No Status: Acute Plan: Will start him on fluids, levemir and sliding scale. Will start an ADA diet. 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
[2021-02-03 21:12] VITALS: BMI 30.6
[2021-02-03] MEDS: INSULIN -REGULAR HUMAN 50 UNIT/0.5 ML ML SQ SCH ×2 (21:20→22:13)
[2021-02-03] MEDS ORDERED: NA CHLORIDE 0.9% 1,000 ML IV SCH (21:20)
[2021-02-03] MEDS: HYDROMORPHONE HCL 0.5 MG/0.5 ML INJ IV PRN (22:11)
[2021-02-03] MEDS: PREGABALIN 75 MG CAP PO SCH (22:12)
[2021-02-03] MEDS: carvediloL 6.25 MG TAB PO SCH (22:12)
[2021-02-03] MEDS: ARFORMOTEROL TARTRATE 15 MCG/2 ML VIAL.NEB IH SCH (23:45)
[2021-02-04] MEDS ORDERED: GLUCAGON 1 MG/VIAL IM PRN (06:09)
[2021-02-04] MEDS ORDERED: D50W 25 GM/50 ML SYRINGE IV PRN (06:09)
[2021-02-04] MEDS ORDERED: INSULIN -REGULAR HUMAN 50 UNIT/0.5 ML ML SQ ONE (06:11)
[2021-02-04 06:19] LABS: Absolute Lymphocytes (CBC) 3.4 K/uL (0.7-4.9); Basophils % 0.6 % (0-1.3); Hematocrit 41.9 % (39.6-49.0); Lymphocytes % 26.5 % (15.3-44.8); MPV 8.9 fL (7.6-11.3); RBC Red Blood Cell Count 4.83 M/uL (4.33-5.43)
[2021-02-04] MEDS: HYDROMORPHONE HCL 0.5 MG/0.5 ML INJ IV PRN ×4 (06:34→21:06)
[2021-02-04 06:37] LABS: Potassium 4.2 mmol/L (3.5-5.1)
[2021-02-04] MEDS: NA CHLORIDE 0.9% 1,000 ML IV SCH ×2 (06:40→18:07)
[2021-02-04] MEDS: INSULIN -REGULAR HUMAN 50 UNIT/0.5 ML ML SQ SCH ×5 (07:30→21:13)
[2021-02-04] MEDS: ARFORMOTEROL TARTRATE 15 MCG/2 ML VIAL.NEB IH SCH ×2 (08:52→19:40)
--- NOTE | 2021-02-04 08:57 | P.PN ---
Subjective Date of Service: 02/04/21 Primary Care Provider: Cecelia Chief Complaint: hypotension. unstable angina Subjective: No new changes (Patient sugars have been in the 500's per the patient for a while now) Review of Systems 10-point ROS is otherwise unremarkable Respiratory: Shortness of Breath Physical Examination - Vital Signs Temperature: 97.5 F Blood Pressure: 98/55 Pulse: 78 Respirations: 19 Pulse Ox (%): 96 - Physical Exam General: Alert, In no apparent distress HEENT: Atraumatic, PERRLA, EOMI Neck: Supple, JVD not distended Respiratory: Clear to auscultation bilaterally, Normal air movement Cardiovascular: Regular rate/rhythm, Normal S1 S2 Gastrointestinal: Normal bowel sounds, No tenderness Musculoskeletal: No tenderness Integumentary: No rashes Neurological: Normal speech, Normal tone, Normal affect Lymphatics: No axilla or inguinal lymphadenopathy - Studies Laboratory Data (last 24 hrs) 02/03/21 17:54: PT 11.3, INR 0.98 02/03/21 17:54: Magnesium 2.0, Total Bilirubin 0.3, AST 19, ALT 43, Alkaline Phosphatase 142 H 02/03/21 16:22: Sodium 132 L, Potassium 5.4 H, BUN 30 H, Creatinine 2.12 H, Glucose 463 H* 02/03/21 16:22: WBC 15.20 H D, Hgb 14.5, Hct 46.2, Plt Count 196 Assessment & Plan - Problems (Diagnosis) (1) Chest pain Current Visit: Yes Status: Acute Plan: Will consult Dr. Guzman. monitor troponins. Will start her on fluids. Qualifiers: Ischemic chest pain type: stable angina pectoris (2) Tachycardia Current Visit: Yes Status: Acute Plan: restart the carvedilol. Will adjust her medications. (3) CKD stage 4 due to type 2 diabetes mellitus Current Visit: Yes Status: Acute Plan: normal his gfr is between 40-50 will continue fluids. (4) Diabetes Current Visit: No Status: Acute Plan: Will start him on fluids, levemir and sliding scale. Will start an ADA diet. 02/04 Patient states he has been having sugar in 500-600 for the last few days. The patient did not want to bother me. Will restart him on levemir 30 units. Will cover with regular insulin. May increase to 40units tomorrow. 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
[2021-02-04] MEDS: carvediloL 6.25 MG TAB PO SCH ×2 (09:00→20:58)
[2021-02-04] MEDS ORDERED: ASPIRIN EC 81 MG TAB PO SCH (09:00)
[2021-02-04] MEDS: NICOTINE 21 MG/PAT TD SCH (09:00)
[2021-02-04] MEDS: ASPIRIN EC 81 MG TAB PO SCH (09:00)
[2021-02-04] MEDS: BUPROPION 75 MG PO SCH (09:00)
[2021-02-04] MEDS ORDERED: INSULIN GLARGINE 100 UNIT/ML SQ SCH (09:00)
[2021-02-04] MEDS: TAMSULOSIN 0.4 MG SR CAP PO SCH (09:20)
[2021-02-04] MEDS: INSULIN GLARGINE 100 UNIT/ML SQ SCH (09:21)
[2021-02-04] MEDS: LEVALBUTEROL 0.63 MG/3 ML NEB NEB PRN ×4 (13:08→23:00)
[2021-02-04] MEDS: ENOXAPARIN 40 MG/0.4 ML SQ SCH (18:09)
[2021-02-04] MEDS: PREGABALIN 75 MG CAP PO SCH (21:09)
[2021-02-05] MEDS: HYDROMORPHONE HCL 0.5 MG/0.5 ML INJ IV PRN ×5 (01:15→21:45)
[2021-02-05] MEDS: NA CHLORIDE 0.9% 1,000 ML IV SCH ×2 (01:18→14:15)
[2021-02-05] MEDS: ARFORMOTEROL TARTRATE 15 MCG/2 ML VIAL.NEB IH SCH ×2 (07:48→20:00)
[2021-02-05] MEDS: BUPROPION 75 MG PO SCH (09:00)
[2021-02-05] MEDS: INSULIN GLARGINE 100 UNIT/ML SQ SCH (09:08)
[2021-02-05] MEDS: INSULIN -REGULAR HUMAN 50 UNIT/0.5 ML ML SQ SCH ×4 (09:09→21:45)
[2021-02-05] MEDS: NICOTINE 21 MG/PAT TD SCH (09:09)
[2021-02-05] MEDS: ASPIRIN EC 81 MG TAB PO SCH (09:10)
[2021-02-05] MEDS: TAMSULOSIN 0.4 MG SR CAP PO SCH (09:10)
[2021-02-05] MEDS: carvediloL 6.25 MG TAB PO SCH ×2 (09:10→21:44)
[2021-02-05] MEDS ORDERED: dexAMETHasone 4 MG/ML VIAL IV ONE (10:12)
--- NOTE | 2021-02-05 10:17 | P.PN ---
Subjective Date of Service: 02/05/21 Primary Care Provider: Cecelia Chief Complaint: hypotension. unstable angina sugars better controlled. Review of Systems 10-point ROS is otherwise unremarkable ENT: Nose Congestion Respiratory: Cough, Shortness of Breath, Sputum Physical Examination - Vital Signs Temperature: 97.1 F Blood Pressure: 111/59 Pulse: 97 Respirations: 18 Pulse Ox (%): 91 - Physical Exam General: Alert, In no apparent distress HEENT: Atraumatic, PERRLA, EOMI Neck: Supple, JVD not distended Respiratory: Diminished, Expiratory wheezes Cardiovascular: Regular rate/rhythm, Normal S1 S2 Gastrointestinal: Normal bowel sounds, No tenderness Musculoskeletal: No tenderness Integumentary: No rashes Neurological: Normal speech, Normal tone, Normal affect Lymphatics: No axilla or inguinal lymphadenopathy Assessment & Plan - Problems (Diagnosis) (1) COPD exacerbation Current Visit: No Status: Acute Plan: continue breathing treatments. Will give the patient one dose of mucomyst and one dose of decadrone. The patient is able to speak in full sentences. His wheezing disappears when he is not talking (2) Chest pain Current Visit: Yes Status: Acute Plan: Will consult Dr. Guzman. monitor troponins. Will start her on fluids. no current chest pain or tachycardia. Will discuss the patient with Dr. Guzman Qualifiers: Ischemic chest pain type: stable angina pectoris (3) CKD stage 4 due to type 2 diabetes mellitus Current Visit: Yes Status: Acute Plan: normal his gfr is between 40-50 will continue fluids. (4) Diabetes Current Visit: No Status: Acute Plan: Will start him on fluids, levemir and sliding scale. Will start an ADA diet. 02/04 Patient states he has been having sugar in 500-600 for the last few days. The patient did not want to bother me. Will restart him on levemir 30 units. Will cover with regular insulin. May increase to 40units tomorrow. as 30 units is his home dosage Qualifiers: Diabetes mellitus type: type 2 Diabetes mellitus chcf insulin use: with chcf use Diabetes mellitus complication detail: with nephropathy (5) Nicotine dependence Current Visit: No Status: Chronic Plan: continue nicotine patch Qualifiers: Nicotine product type: cigarettes (6) Tachycardia Current Visit: Yes Status: Resolved Plan: restart the carvedilol. Will adjust her medications. Discharge Plan: Home Plan to discharge in: 48 Hours - Code Status/Comfort Care Code Status Assessed: No Physician Review: Patient Assessed, Agree with Above Assessment and Plan Critical Care: No Time Spent Managing Pts Care (In Minutes): 25
[2021-02-05] MEDS ORDERED: ACETYLCYST 20% 4 ML VIAL IH ONE (11:00)
[2021-02-05] MEDS ORDERED: HYDRALAZINE HCL 20 MG/ML VIAL IV PRN (11:14)
[2021-02-05] MEDS: LEVALBUTEROL 0.63 MG/3 ML NEB NEB PRN ×3 (11:25→23:05)
--- NOTE | 2021-02-05 17:02 | EKG ---
Test Date: 2021-02-03 Test Time: 14:35:32 Professor Of Exercise Science: ALP MEASUREMENT RESULTS: Intervals: Rate: 102 AR: 156 QRSD: 90 QT: 352 QTc: 458 Jackman: P: 44 AR: 156 QRS: -74 T: 74 INTERPRETIVE STATEMENTS: Sinus tachycardia Left axis deviation Low voltage QRS Abnormal ECG Compared to ECG 02/02/2021 14:06:11 Low QRS voltage now present Sinus rhythm no longer present Sinus arrhythmia no longer present Myocardial infarct finding no longer present Electronically Signed On 02-05-21 17:00:11 SERVICE GREETER by Pal Pisano
[2021-02-05] MEDS: ENOXAPARIN 40 MG/0.4 ML SQ SCH (17:20)
[2021-02-05] MEDS: PREGABALIN 75 MG CAP PO SCH (21:44)
[2021-02-06] MEDS: NA CHLORIDE 0.9% 1,000 ML IV SCH ×3 (01:18→12:10)
[2021-02-06] MEDS: HYDROMORPHONE HCL 0.5 MG/0.5 ML INJ IV PRN ×3 (01:19→09:23)
[2021-02-06] MEDS: LEVALBUTEROL 0.63 MG/3 ML NEB NEB PRN ×3 (03:05→11:49)
[2021-02-06 06:04] LABS: Absolute Lymphocytes (CBC) 2.1 K/uL (0.7-4.9); Basophils % 0.3 % (0-1.3); Hematocrit 41.2 % (39.6-49.0); Lymphocytes % 16.5 % (15.3-44.8); MPV 8.9 fL (7.6-11.3); RBC Red Blood Cell Count 4.78 M/uL (4.33-5.43)
[2021-02-06 06:27] LABS: Albumin 2.7 g/dL (3.4-5.0); Bilirubin Total 0.3 mg/dL (0.2-1.0); Potassium 4.6 mmol/L (3.5-5.1); Protein, Total 7.1 g/dL (6.4-8.2)
[2021-02-06] MEDS: ARFORMOTEROL TARTRATE 15 MCG/2 ML VIAL.NEB IH SCH (07:55)
[2021-02-06] MEDS: BUPROPION 75 MG PO SCH (09:00)
[2021-02-06] MEDS: NICOTINE 21 MG/PAT TD SCH (09:22)
[2021-02-06] MEDS: carvediloL 6.25 MG TAB PO SCH (09:23)
[2021-02-06] MEDS: TAMSULOSIN 0.4 MG SR CAP PO SCH (09:23)
[2021-02-06] MEDS: INSULIN -REGULAR HUMAN 50 UNIT/0.5 ML ML SQ SCH ×2 (09:24→12:09)
[2021-02-06] MEDS: ASPIRIN EC 81 MG TAB PO SCH (09:24)
[2021-02-06] MEDS: INSULIN GLARGINE 100 UNIT/ML SQ SCH (09:24)
--- NOTE | 2021-02-06 10:02 | P.PN ---
Subjective Date of Service: 02/06/21 Primary Care Provider: Cecelia Chief Complaint: hypotension. unstable angina breathing has improved Review of Systems 10-point ROS is otherwise unremarkable Respiratory: Shortness of Breath Physical Examination - Vital Signs Temperature: 98.6 F Blood Pressure: 123/64 Pulse: 83 Respirations: 20 Pulse Ox (%): 96 - Physical Exam General: Alert, In no apparent distress HEENT: Atraumatic, PERRLA, EOMI Neck: Supple, JVD not distended Respiratory: Clear to auscultation bilaterally, Normal air movement Cardiovascular: Regular rate/rhythm, Normal S1 S2 Gastrointestinal: Normal bowel sounds, No tenderness Musculoskeletal: No tenderness Integumentary: No rashes Neurological: Normal speech, Normal tone, Normal affect Lymphatics: No axilla or inguinal lymphadenopathy Assessment & Plan - Problems (Diagnosis) (1) COPD exacerbation Current Visit: No Status: Acute Plan: continue breathing treatments. Will give the patient one dose of mucomyst and one dose of decadrone. The patient is able to speak in full sentences. His wheezing disappears when he is not talking 02/06 Has improved on his breathing. Will continue his breathing treatment. His sugars are stable. Will need to work on improvement. (2) Chest pain Current Visit: Yes Status: Acute Plan: will discuss with Dr. Pisano about plans for a cath. Weather in or outpatient Qualifiers: Ischemic chest pain type: stable angina pectoris (3) CKD stage 4 due to type 2 diabetes mellitus Current Visit: Yes Status: Acute Plan: normal his gfr is between 40-50 will continue fluids. (4) Diabetes Current Visit: No Status: Acute Plan: Will start him on fluids, levemir and sliding scale. Will start an ADA diet. 02/06 had a dose of steroids yesterday. Increase his lantus to 35 units. 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 Will adjust her medications. Discharge Plan: Home Plan to discharge in: 24 Hours Physician Review: Patient Assessed, Agree with Above Assessment and Plan Critical Care: No Time Spent Managing Pts Care (In Minutes): 25
[2021-02-06 12:08] VITALS: O2SAT 93
[2021-02-06 12:28] VITALS: BP 128/58; TEMP 97.4
[2021-02-06] MEDS ORDERED: ACETAMINOPHEN 325 MG TABLET PO PRN (13:07)
--- NOTE | 2021-02-06 14:23 | CON ---
Date of Consultation: 02/04/2021 Reason For Consultation: Congestive heart failure, generalized weakness. History Of Present Illness: Mr. Lara is 55. Has a recently discovered ejection fraction of 25% to 30%. Has a history of lung mass, hypertension, diabetes, CHF, and COPD. Has known pulmonary hyperte nsion with right ventricular systolic pressure of 55 mmHg. Comes in with shortness of breath. He hunt s PND, orthopnea, pedal edema, but no chest pain per se. Allergies: HE IS ALLERGIC TO PSEUDOEPHEDRINE. Review of Systems: Negative. Social History: Negative. Family History: Negative. Medications: At home include Lyrica, aspirin, Lipitor, insulin, Coreg, inhaler, lisinopril, [place] e. Physical Examination: Vital Signs: Blood pressure was 98/55. His pulse was 70. He was afebrile. O2 saturation 94%, sinu s rhythm. HEENT: Negative. Neck: Supple with no bruit. Chest: Reveals some rales both bases. Cardiac: Revealed a regular rhythm and rate with S3 gallops. No murmurs or rubs. Abdomen: Benign. Extremities: Revealed 2+ edema. Diagnostic Data: His white count was 12,000. Glucose was 244. His chest x-ray was negative. His E KG showed sinus tachycardia with left axis deviation and low voltage. Impression And Plan: 1.Severe systolic acute on chronic congestive heart failure. 2.Pulmonary hypertension. 3.Chronic obstructive pulmonary disease. 4.Diabetes. 5.Hypertension. 6.Renal insufficiency. Creatinine is 2.12. His diabetes needs to be better controlled and he needs to have his creatinine watched carefully. Continue present regimen. Consider Nephrology consultati on. Dr. Rai and I discussed the case. The patient really needs to have left and right heart carlitos terization to evaluate his congestive heart failure and evaluate him for coronary artery disease. I will make an arrangement for that as an outpatient. NINO/WARREN Voice ID: [id number] Report ID: [id number]
[2021-02-07] MEDS ORDERED: INSULIN GLARGINE 100 UNIT/ML SQ SCH (09:00)
--- NOTE | 2021-02-07 13:22 | P.DS ---
Admission Date: 02/03/21 Discharge Date: 02/06/21 Primary Care Provider: Cecelia Disposition: ROUTINE DISCHARGE Reason for Admission: hypotension. unstable angina - Problems (1) COPD exacerbation Status: Acute (2) Chest pain Status: Acute Qualifiers: Ischemic chest pain type: stable angina pectoris (3) CKD stage 4 due to type 2 diabetes mellitus Status: Acute (4) Diabetes Status: Acute Qualifiers: Diabetes mellitus type: type 2 Diabetes mellitus intermediate insulin use: with intermediate use Diabetes mellitus complication detail: with nephropathy (5) Nicotine dependence Status: Chronic Qualifiers: Nicotine product type: cigarettes (6) Tachycardia Status: Resolved Brief History of Present Illness: Patient who was sent to Dr. Guzman for chest pain. He was brought to the director of cath lab for an elective cath. The patient was found to be hypotensive, tachycardic and the cath was held. He was sent to the ER for admission. He was found to have an elevated glucose. Normal rapid troponin. The patient is currently resting comfortable. Not sure why he was sent to the ER. Hospital Course: Patient admitted for tachycardia and hyperglycemia. He had a some sob from his copd. controlled him with insulin and carvedilol. He was not going to have a cath in patient. He did not have any positive troponins. will discharge him home and have the patient follow up Vital Signs/Physical Exam: Temp Pulse Resp BP Pulse Ox 97.4 F 79 22 H 128/58 L 93 02/06/21 12:00 02/06/21 12:00 02/06/21 12:00 02/06/21 12:00 02/06/21 12:00 General: Alert, In no apparent distress HEENT: Atraumatic, PERRLA, EOMI Neck: Supple, JVD not distended Respiratory: Clear to auscultation bilaterally, Normal air movement Cardiovascular: Regular rate/rhythm, Normal S1 S2 Gastrointestinal: Normal bowel sounds, No tenderness Musculoskeletal: No tenderness Integumentary: No rashes Neurological: Normal speech, Normal tone, Normal affect Lymphatics: No axilla or inguinal lymphadenopathy Laboratory Data at Discharge: WBC 12.80 K/uL (4.3-10.9) H 02/06/21 05:54 Hgb 13.3 g/dL (13.6-17.9) L 02/06/21 05:54 Hct 41.2 % (39.6-49.0) 02/06/21 05:54 Plt Count 199 K/uL (152-406) 02/06/21 05:54 PT 11.3 SECONDS (9.5-12.5) 02/03/21 17:54 INR 0.98 02/03/21 17:54 Sodium 134 mmol/L (136-145) L 02/06/21 05:54 Potassium 4.6 mmol/L (3.5-5.1) 02/06/21 05:54 BUN 21 mg/dL (7-18) H D 02/06/21 05:54 Creatinine 1.20 mg/dL (0.55-1.3) 02/06/21 05:54 Glucose 284 mg/dL (74-106) H 02/06/21 05:54 Magnesium 2.0 mg/dL (1.8-2.4) 02/03/21 17:54 Total Bilirubin 0.3 mg/dL (0.2-1.0) 02/06/21 05:54 AST 17 U/L (15-37) 02/06/21 05:54 ALT 33 U/L (12-78) 02/06/21 05:54 Alkaline Phosphatase 112 U/L (45-117) 02/06/21 05:54 Troponin I Cancelled 02/03/21 18:15 Home Medications: Insulin 70/30 NPH/Reg Human [Novolin 70/30*] 20 unit SQ BID 11/27/20 Spironolactone [Aldactone*] 1 tab PO BID 11/27/20 Arformoterol Tartrate [Brovana] 15 mcg NEB BIDRESP vial.neb 12/01/20 Lisinopril [Zestril] 2.5 mg PO DAILY 30 Days #30 tablet 12/01/20 carvediloL [Coreg*] 6.25 mg PO BID 30 Days #60 tab 12/01/20 Levalbuterol [Xopenex*] 0.63 mg NEB [id number] PRN 30 Days #120 vial 12/09/20 Nicotine [Nicoderm*] 21 mg TD DAILY 30 Days #30 patch.td24 12/09/20 Pregabalin [Lyrica*] 75 mg PO BEDTIME 90 Days #90 tab 12/09/20 Aspirin [Adult Low Dose Aspirin EC] 81 mg PO BID 12/16/21 Atorvastatin Calcium [Lipitor] 40 mg PO BEDTIME 02/03/21 Gabapentin 300 ng PO DAILY 02/03/21 Followup: Jay Rai MD [ACTIVE - CAN ADMIT] - (Call office on 02/07 to schedule follow up appointment. ) Pal Pisano MD [ACTIVE - CAN ADMIT] - 1 Week
== END 2021-02-06 15:05 | disposition home or self-care (01) | DRG 291 ==
LOC: ER 13:58 → ERHOLD 18:12 → 2ND 20:50
PROVIDERS: ADMIT Internal Medicine; ATTEND Internal Medicine
DX: I13.0 Hypertensive heart and chronic kidney disease with heart failure and stage 1 through stage 4 chronic kidney disease, or unspecified chronic kidney disease (principal); I50.23 Acute on chronic systolic (congestive) heart failure; N18.4 Chronic kidney disease, stage 4 (severe); J44.1 Chronic obstructive pulmonary disease with (acute) exacerbation; I20.9 Angina pectoris, unspecified; E11.22 Type 2 diabetes mellitus with diabetic chronic kidney disease; R00.0 Tachycardia, unspecified; E11.21 Type 2 diabetes mellitus with diabetic nephropathy; I27.20 Pulmonary hypertension, unspecified; E11.65 Type 2 diabetes mellitus with hyperglycemia; F17.210 Nicotine dependence, cigarettes, uncomplicated; Z79.4 Long term (current) use of insulin; Z20.822 Contact with and (suspected) exposure to COVID-19
CPT/HCPCS: 36415; 71045; 71046; 80048; 80053; 80076; 82947; 83735; 83880; 84484; 85025; 85610; 85730; 93005; 94640; 96374; 99285; J0360; J1100; J1170; J1650; J7030; J7040; J7605; U0003

== ENCOUNTER 2021-02-08 08:15 | Day surgery (SDC) | payer OTHER ==
[~2021-02-08 08:15] MED LIST: HEPA 1000U/500MLS 0 UNIT/0 ML BAG IV ONE; LIDOCAINE 1% 20 ML MDV ONE
[2021-02-08] MEDS ORDERED: LIDOCAINE 1% 20 ML MDV ONE (08:21)
[2021-02-08] MEDS ORDERED: HEPA 1000U/500MLS 2,000 UNIT/1,000 ML BAG IV ONE (08:22)
[2021-02-08] MEDS ORDERED: MIDAZOLAM HCL 2 MG/2 ML INJ ONE (08:22)
[2021-02-08] MEDS ORDERED: NITROGLYCERIN 100 MCG/ML SYR (for cath lab use only) IV ONE (08:23)
[2021-02-08] MEDS ORDERED: ATROPINE SULF 1 MG/10 ML SYR IV ONE (08:23)
[2021-02-08] MEDS ORDERED: FENTANYL CITR 100 MCG/2 ML ONE (08:23)
[2021-02-08] MEDS ORDERED: HEPARIN 5000 UNIT/ML 1 ML VIAL ONE (08:23)
[2021-02-08] MEDS ORDERED: VERAPAMIL HCL 10 MG/4 ML VIAL IV ONE (08:23)
[2021-02-08] MEDS ORDERED: NA CHLORIDE 0.9% 500 ML ONE (08:29)
[2021-02-08 08:48] VITALS: TEMP 98.2
--- NOTE | 2021-02-08 10:57 | OP ---
Date of Procedure: 02/08/2021 Surgeon: NIECY NORRIS Procedures Performed: 1.Selective coronary angiogram. 2.Left heart catheterization. 3.Left ventriculogram. Indications: 1.Unstable angina. 2.Moderate systolic dysfunction. Access: Radial artery 6-Ivorian closed with TR band. Complications: None. Bleeding: Less than 10 mL. Description Of Procedure: After risks, benefits, and alternatives were explained, the patient agreed to procedure and signed informed consent. The patient was brought into cardiac catheterization [facility], prepped and draped in usual sterile fashion. Then, I accessed the right radial artery using pediatric micropuncture kit, placed a 6-Ivorian Slender sheath and took a 5-Ivorian [place] 4.0 catheter in the aortic root, engaged the left main and right coronary artery, took standard views and then we exchanged for 6-Ivorian angled pigtail into the aortic root, across the aortic valve and LVEDP was rec orded. LV-gram was done and then pullback did not record any gradient. Then, I removed the catheter and sheath and placed TR band with good hemostasis. Findings: 1.Left main; normal. 2.LAD; moderate sized vessel, wraps around the apex, normal. Normal diagonal branches. 3.Left circumflex; large and dominant and normal. 4.RCA; moderate size, nondominant and normal. 5.LVEDP of 22 mmHg. 6.Moderate depressed LV ejection fraction of 30% to 35% with moderate global hypokinesis. Conclusions: 1.Normal coronary arteries. 2.Elevated LVEDP at 22 mmHg. 3.Moderately depressed LV ejection fraction of 30% to 35% with moderate global hypokinesis. Plan: Guideline directed medical therapy for congestive heart failure. Followup with me in the offi ce in 1-2 weeks to adjust medications. SR/MODL Voice ID: [id number] Report ID: [id number]
[2021-02-08 12:08] VITALS: BP 127/68; O2SAT 95
== END 2021-02-08 12:14 | disposition home or self-care (01) ==
LOC: CCL 08:15
DX: I20.0 Unstable angina (principal); I42.8 Other cardiomyopathies; I11.0 Hypertensive heart disease with heart failure; I50.22 Chronic systolic (congestive) heart failure; J44.9 Chronic obstructive pulmonary disease, unspecified; E11.9 Type 2 diabetes mellitus without complications; Z88.8 Allergy status to other drugs, medicaments and biological substances; F17.210 Nicotine dependence, cigarettes, uncomplicated; Z79.4 Long term (current) use of insulin
CPT/HCPCS: 82947; 93458; C1893; J1644 ×2; J2250; J3010; J7040

== ENCOUNTER 2021-05-06 15:19 | Inpatient (IN) | payer OTHER ==
[2021-05-06] MEDS ORDERED: IPRATROPIUM BROM 0.5MG/2.5ML ONE (15:54)
[2021-05-06] MEDS ORDERED: ALBUTEROL 2.5 MG/3 ML NEB SOL ONE (15:54)
[2021-05-06] MEDS ORDERED: Levofloxacin500mg IV 500 MG/100 ML BAG IV ONE (15:54)
[2021-05-06] MEDS ORDERED: METHYLPREDNISOLONE 125 MG INJ ONE (15:54)
[2021-05-06 16:10] LABS: Absolute Lymphocytes (CBC) 3.6 K/uL (0.7-4.9); Hematocrit 37.3 % (39.6-49.0); Lymphocytes % 22.1 % (15.3-44.8); MPV 9.2 fL (7.6-11.3); RBC Red Blood Cell Count 3.91 M/uL (4.33-5.43)
[2021-05-06 16:17] LABS: Protime INR 0.89
[2021-05-06] MEDS ORDERED: INSULIN -REGULAR HUMAN 50 UNIT/0.5 ML ML ONE (16:21)
[2021-05-06] MEDS ORDERED: NA CHLORIDE 0.9% 1,000 ML ONE (16:21)
--- NOTE | 2021-05-06 16:25 | RAD REPORT ---
EXAM DESCRIPTION: RAD - Chest Single View - 05/06/2021 4:17 pm CLINICAL HISTORY: DYSPNEA Chest pain. COMPARISON: Chest Single View dated 02/03/2021; Chest Pa And Lat (2 Views) dated 02/02/2021; Chest S joycelyn View dated 11/26/2020; Chest Single View dated 07/20/2020 FINDINGS: Portable technique limits examination quality. The lungs are grossly clear. The heart is normal in size. No displaced fractures. IMPRESSION: No acute intrathoracic process suspected.
[2021-05-06 16:44] LABS: Albumin 3.1 g/dL (3.4-5.0); Bilirubin Total 0.2 mg/dL (0.2-1.0); Potassium 5.2 mmol/L (3.5-5.1); Protein, Total 7.6 g/dL (6.4-8.2); Troponin High Sensitivity 37.9 pg/mL (<58.9)
--- NOTE | 2021-05-06 17:04 | ER ---
Nurse's Notes [facility] Name: Ernesto Lara Age: 56 yrs Sex: Male : 1965 Arrival Date: 05/06/2021 Time: 15:24 Bed 2 Private MD: Diagnosis: COPD/ Chronic obstructive pulmonary disease with (acute) exacerbation;Type 2 diabetes mellitus with hyperglycemia Presentation: 05/06 15:29 Chief complaint: Patient states: SOB for " a while". Pt also reports coughing up blood aa5 since today. Onset of symptoms was May 06, 2021. 15:29 Acuity: ROJELIO 2 aa5 15:29 Initial Sepsis Screen: Does the patient meet any 2 criteria? RR > 20 per min. HR > 90 aa5 bpm. Does the patient have a suspected source of infection? Yes:. Risk Assessment: Do you want to hurt yourself or someone else? Patient reports no desire to harm self or others. 15:29 Coronavirus screen: cough unrelated to allergies. Ebola Screen: No symptoms or risks aa5 identified at this time. 15:29 Method Of Arrival: Wheelchair aa5 Historical: - Allergies: 15:30 Pseudoephedrine; aa5 15:30 triprolidine; aa5 - PMHx: 15:30 Bronchitis; COPD; diabetes mellitus; Hypertensive disorder; mass L lung; aa5 - Immunization history:: Adult Immunizations up to date, Client reports having NOT received the Covid vaccine. - Social history:: Smoking status: Patient reports the use of cigarette tobacco products, smokes one pack cigarettes per day. Patient/guardian denies using alcohol. Screenin:57 Abuse screen: Denies threats or abuse. Denies injuries from another. Nutritional ld1 screening: No deficits noted. Tuberculosis screening: No symptoms or risk factors identified. Fall Risk None identified. Assessment: 15:57 General: Appears in no apparent distress. uncomfortable, Behavior is agitated, anxious, ld1 fussy. Pain: Denies pain. Neuro: Level of Consciousness is awake, alert, obeys commands, Oriented to person, place, time, situation, Appropriate for age. Cardiovascular: Capillary refill < 3 seconds Patient's skin is warm and dry. Rhythm is regular. Respiratory: Reports shortness of breath at rest on exertion Airway is patent Respiratory effort is even, labored, Respiratory pattern is regular, symmetrical. GI: Abdomen is round non-distended. : No signs and/or symptoms were reported regarding the genitourinary system. EENT: No signs and/or symptoms were reported regarding the EENT system. Derm: No signs and/or symptoms reported regarding the dermatologic system. Musculoskeletal: No signs and/or symptoms reported regarding the musculoskeletal system. 17:05 Reassessment: Patient appears in no apparent distress at this time. No changes from ld1 previously documented assessment. Patient and/or family updated on plan of care and expected duration. Pain level reassessed. Patient states feeling better. 17:51 Reassessment: Patient appears in no apparent distress at this time. No changes from ld1 previously documented assessment. Patient and/or family updated on plan of care and expected duration. Pain level reassessed. Patient states feeling better. 18:34 Reassessment: Patient appears in no apparent distress at this time. Laying in bed ld1 resting with at bedside. Denies concerns at this time. Patient states feeling better. Vital Signs: 15:29 BP 97 / 76; Pulse 112; Resp 40 S; Temp 98.0(TE); Pulse Ox 97% on 3 lpm NC; Weight aa5 122.47 kg (R); Height 5 ft. 9 in. (175.26 cm) (R); 16:08 BP 142 / 99; Pulse 119; Resp 26; Pulse Ox 98% on Nebulizer Mask; Pain 0/10; ld1 17:51 BP 124 / 68; Pulse 95; Resp 19; Pulse Ox 93% on 2 lpm NC; Pain 0/10; ld1 18:34 BP 119 / 68; Pulse 91; Resp 18; Pulse Ox 94% on 2 lpm NC; ld1 19:49 BP 136 / 81; Pulse 92; Resp 16; Pulse Ox 93% on 2 lpm NC; st1 23:15 BP 142 / 85; Pulse 86; Resp 21; Pulse Ox 94% on 2 lpm NC; ll3 15:29 Body Mass Index 39.87 (122.47 kg, 175.26 cm) aa5 ED Course: 15:24 Patient arrived in ED. aa5 15:30 Arm band placed on. aa5 15:32 Triage completed. aa5 15:39 Patient has correct armband on for positive identification. Bed in low position. Call 5 light in reach. Side rails up X 1. Warm blanket given. 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 Pulse ox on. NIBP on. 15:39 EKG done, by ED staff, reviewed by Wellington DENNIS. mh5 15:42 Momo Tracey PA is PHCP. cp 15:42 Merle Rosario MD is Attending Physician. cp 15:44 PHCP role handed off by Momo Tracey PA 8 15:44 Wellington Ji PA is PHCP. jr8 15:45 Pamela Sidhu RN is Primary Nurse. ld1 15:57 No provider procedures requiring assistance completed. Inserted saline lock: 20 gauge ld1 in left antecubital area, using aseptic technique. Blood collected. 16:17 Chest Single View XRAY In Process Unspecified. EDMS 17:02 Jay Rai MD is Hospitalizing Provider. jr8 17:55 COVID-19 SARS RT PCR (Document "Date of Onset" if Symptomatic) Sent. ld1 23:30 the patient was offered to be taken to the bathroom, I offered the patient a bedside 1 commode . The patient began using vulgar language stating " his god damn doctor told him to come here and that there would be room available and now he is being held in the ER". He stated he did not want my god damn fucking help and to get him a room now so he can take a shit". I informed NANNETTE Healy of the situation. 23:[address] to [address] his inpatient room wrist band on with registration. The [facility] patient was found rolling down the díaz on a stool. Neelima offed the patient a wheel chair and educated him on safety practices to avoid falling down. The patient refused NANNETTE Ortez to touch or assist him and stated, " I am not going anywhere with you on that fucking thing". I attempted to intervene and the patient refused my assistance and continued on the rolling chair to the bathroom. 23:46 The patient refused getting into a wheel chair with SONNY Caputo to go to the [facility] bathroom. The patient continued to wheel himself down the díaz on a stool. 23:48 Pt is rolling down hallway on stool. Offered to take pt to the restroom via wheelchair, ll3 Pt states "I'm not going anywhere with you on that fucking thing", explained the need for wheelchair as it is not safe for him to scoot on the stool. 05/07 00:05 Patient admitted, IV remains in place. No redness/swelling at site. ll3 Administered Medications: 05/06 15:45 Drug: LevaQUIN (levofloxacin) 500 mg Volume: 100 ml; Route: IVPB; Infused Over: 60 ld1 mins; Site: left wrist; 15:56 Drug: SOLU-Medrol (methylPrednisoLONE) 125 mg Route: IVP; Site: left wrist; ld1 15:57 Drug: Albuterol - atroVENT (ipratropium) (3:1) (2.5 mg - 0.5 mg) 3 ml Route: Nebulizer; ld1 16:23 Drug: Insulin Regular Human 10 units {Co-Signature: vg1 (Elsa Bella RN).} Route: ld1 IVP; Site: left wrist; 16:28 Drug: NS 0.9% 1000 ml Route: IV; Rate: 1000 ml; Site: left wrist; ld1 Outcome: 17:03 Decision to Hospitalize by Provider. jr8 05/07 00:05 Admitted to Tele accompanied by tech, via wheelchair, room 407, with oxygen, with ll3 chart, Report called to NANNETTE Johnson Condition: stable Instructed on the need for admit, Demonstrated understanding of instructions. 00:06 Patient left the ED. ll3 Signatures: Dispatcher [employer] EDMS Glenda Kuo RN RN aa5 Wellington Ji PA PA jr8 Momo Tracey PA PA cp Martinez, [facility] Pamela Sidhu RN RN ld1 Neelima Barba RN RN ll3 Blanca Oleary RN RN st1 Elsa Bella RN vg1 Corrections: (The following items were deleted from the chart) 05/06 15:40 15:29 BP 97 / 76; Pulse 112bpm; Resp 40bpm; Spontaneous; Pulse Ox 97% 3 lpm Nasal aa5 Cannula; 122.47 kg Reported; aa5 16:52 16:29 LevaQUIN (levofloxacin) 500 mg 100 ml IVPB in left wrist over 60 mins 100 ml ld1 ld1 17:41 15:29 BP 97 / 76; Pulse 112bpm; Resp 40bpm; Spontaneous; Pulse Ox 97% 3 lpm Nasal aa5 Cannula; Temp 98.0F Temporal; 122.47 kg Reported; aa5
--- NOTE | 2021-05-06 17:04 | EDPHYS ---
Physician Documentation [facility] Name: Ernesto Lara Age: 56 yrs Sex: Male : 1965 Arrival Date: 05/06/2021 Time: 15:24 Bed 2 Private MD: ED Physician Merle Rosario HPI: 05/06 16:47 This 56 yrs old Male presents to ER via Wheelchair with complaints of Shortness Of jr8 Breath. 16:47 The patient has shortness of breath at rest. Onset: The symptoms/episode began/occurred jr8 gradually. Duration: The symptoms are continuous. The patient's shortness of breath is aggravated by exertion. Associated signs and symptoms: Pertinent positives: productive cough, hemoptysis. Severity of symptoms: At their worst the symptoms were moderate in the emergency department the symptoms are unchanged. The patient has experienced similar episodes in the past, a few times. The patient has been recently seen by a physician:. This is a 56-year-old male patient with a history of chronic obstructive pulmonary disease that presented to the emergency room with acute onset of worsening shortness of breath along with productive cough and hemoptysis. Patient was seen by his internal medicine physician today and was sent to the emergency room for further evaluation as he was having difficulty breathing and the physician's office. Was also noted that his glucose was above 500 at that time as well. Patient stated that he has had body aches chills and on/off fever as well.. Historical: - Allergies: 15:30 Pseudoephedrine; aa5 15:30 triprolidine; aa5 - PMHx: 15:30 Bronchitis; COPD; diabetes mellitus; Hypertensive disorder; mass L lung; aa5 - Immunization history:: Adult Immunizations up to date, Client reports having NOT received the Covid vaccine. - Social history:: Smoking status: Patient reports the use of cigarette tobacco products, smokes one pack cigarettes per day. Patient/guardian denies using alcohol. ROS: 16:47 Eyes: Negative for injury, pain, redness, and discharge, ENT: Negative for injury, jr8 pain, and discharge, Neck: Negative for injury, pain, and swelling, Cardiovascular: Negative for chest pain, palpitations, and edema, Abdomen/GI: Negative for abdominal pain, nausea, vomiting, diarrhea, and constipation, Back: Negative for injury and pain, MS/Extremity: Negative for injury and deformity, Skin: Negative for injury, rash, and discoloration, Neuro: Negative for headache, weakness, numbness, tingling, and seizure. 16:47 Constitutional: Negative for body aches, chills, fever. 16:47 Respiratory: Positive for cough, dyspnea on exertion, shortness of breath, wheezing. Exam: 16:47 Abdomen/GI: Soft, non-tender, with normal bowel sounds. No distension or tympany. No jr8 guarding or rebound. No evidence of tenderness throughout. Back: No spinal tenderness. No costovertebral tenderness. Full range of motion. Skin: Warm, dry with normal turgor. Normal color with no rashes, no lesions, and no evidence of cellulitis. MS/ Extremity: Pulses equal, no cyanosis. Neurovascular intact. Full, normal range of motion. Neuro: Awake and alert, GCS 15, oriented to person, place, time, and situation. Motor strength 5/5 in all extremities. Sensory grossly intact. 16:47 ENT: Nares patent. No nasal discharge, no septal abnormalities noted. Tympanic membranes are normal and external auditory canals are clear. Oropharynx with no redness, swelling, or masses, exudates, or evidence of obstruction, uvula midline. Mucous membranes moist. Neck: Trachea midline, no thyromegaly or masses palpated, and no cervical lymphadenopathy. Supple, full range of motion without nuchal rigidity, or vertebral point tenderness. No Meningismus. 16:47 Cardiovascular: Rate: tachycardic, Rhythm: regular, Pulses: Pulses are 2+ in right radial artery and left radial artery. Heart sounds: normal, normal S1and S2, no S3 or S4, no murmur, no rub, no gallop, Edema: is not appreciated. 16:47 Respiratory: mild respiratory distress is noted, Respirations: tachypnea, Breath sounds: rhonchi, that are moderate, are heard diffusely, wheezing: expiratory that is moderate. Vital Signs: 15:29 BP 97 / 76; Pulse 112; Resp 40 S; Temp 98.0(TE); Pulse Ox 97% on 3 lpm NC; Weight aa5 122.47 kg (R); Height 5 ft. 9 in. (175.26 cm) (R); 16:08 BP 142 / 99; Pulse 119; Resp 26; Pulse Ox 98% on Nebulizer Mask; Pain 0/10; ld1 17:51 BP 124 / 68; Pulse 95; Resp 19; Pulse Ox 93% on 2 lpm NC; Pain 0/10; ld1 18:34 BP 119 / 68; Pulse 91; Resp 18; Pulse Ox 94% on 2 lpm NC; ld1 19:49 BP 136 / 81; Pulse 92; Resp 16; Pulse Ox 93% on 2 lpm NC; st1 23:15 BP 142 / 85; Pulse 86; Resp 21; Pulse Ox 94% on 2 lpm NC; ll3 15:29 Body Mass Index 39.87 (122.47 kg, 175.26 cm) aa5 MDM: 15:44 Patient medically screened. [facility] 17:01 Data reviewed: vital signs, nurses notes, lab test result(s), EKG, radiologic studies, jr plain films. Data interpreted: Pulse oximetry: on 4L(s) per nasal canula, is 98 %. Interpretation: acceptable. Counseling: I had a detailed discussion with the patient and/or guardian regarding: the historical points, exam findings, and any diagnostic results supporting the discharge/admit diagnosis, lab results, radiology results, the need for further work-up and treatment in the hospital. ED course: Dr. Rai called and will admit patient . 05/06 15:45 Order name: Blood Culture Adult (2) [facility] 05/06 15:45 Order name: CBC with Diff [facility] 05/06 15:45 Order name: CMP [facility] 05/06 15:45 Order name: Lactate; Complete Time: 16:32 [facility] 05/06 15:45 Order name: Protime (+inr); Complete Time: 16:32 [facility] 05/06 15:45 Order name: Ptt, Activated; Complete Time: 16:32 [facility] 05/06 15:45 Order name: Troponin HS; Complete Time: 16:46 [facility] 05/06 15:45 Order name: BNP; Complete Time: 16:46 [facility] 05/06 15:46 Order name: Blood Culture [facility] 05/06 15:46 Order name: CBC with Automated Diff; Complete Time: 16:32 [facility] 05/06 15:46 Order name: Comprehensive Metabolic Panel; Complete Time: 16:46 [facility] 05/06 15:53 Order name: Glucose, Ancillary Testing; Complete Time: 16:04 EDMS 05/06 17:12 Order name: COVID-19 SARS RT PCR (Document "Date of Onset" if Symptomatic) [facility] 05/06 15:45 Order name: Chest Single View XRAY; Complete Time: 16:32 jr8 05/06 15:45 Order name: Accucheck; Complete Time: 15:47 8 05/06 15:45 Order name: Cardiac monitoring; Complete Time: 15:46 8 05/06 15:45 Order name: EKG - Nurse/Tech; Complete Time: 15:46 8 05/06 15:45 Order name: IV Saline Lock - Large Bore; Complete Time: 15:56 8 05/06 15:45 Order name: Labs collected and sent; Complete Time: 15:57 [facility] 05/06 15:45 Order name: O2 Per Protocol; Complete Time: 15:47 8 05/06 15:45 Order name: O2 Sat Monitoring; Complete Time: 15:47 [facility] 05/06 17:24 Order name: Hemoglobin A1c [facility]NC 05/06 19:20 Order name: Lactate Sepsis 2 HR Follow-up EDMS Administered Medications: 15:45 Drug: LevaQUIN (levofloxacin) 500 mg Volume: 100 ml; Route: IVPB; Infused Over: 60 ld1 mins; Site: left wrist; 15:56 Drug: SOLU-Medrol (methylPrednisoLONE) 125 mg Route: IVP; Site: left wrist; ld1 15:57 Drug: Albuterol - atroVENT (ipratropium) (3:1) (2.5 mg - 0.5 mg) 3 ml Route: Nebulizer; ld1 16:23 Drug: Insulin Regular Human 10 units {Co-Signature: vg1 (Elsa Bella RN).} Route: ld1 IVP; Site: left wrist; 16:28 Drug: NS 0.9% 1000 ml Route: IV; Rate: 1000 ml; Site: left wrist; ld1 Disposition Summary: 05/06/21 17:03 Hospitalization Ordered Hospitalization Status: Observation jr8 Provider: Jay Rai Location: Telemetry/MedSurg (observation) jr8 Condition: Stable jr8 Problem: new jr8 Symptoms: have improved jr8 Bed/Room Type: Standard [facility] Room Assignment: 409(05/06/21 23:14) cg Diagnosis - COPD/ Chronic obstructive pulmonary disease with (acute) exacerbation jr8 - Type 2 diabetes mellitus with hyperglycemia jr8 Forms: - Medication Reconciliation Form jr8 - SBAR form jr8 Signatures: Dispatcher [employer] Glenda Redmond RN RN aa5 Wellington Ji PA PA jr8 Kristi Bella RN RN cg Pamela Sidhu RN RN ld1 Elsa Bella RN vg1 Corrections: (The following items were deleted from the chart) : 17:03 jr8 cg
[2021-05-06] MEDS ORDERED: D50W 25 GM/50 ML SYRINGE IV PRN (17:15)
[2021-05-06] MEDS ORDERED: GLUCAGON 1 MG/VIAL IM PRN (17:15)
[2021-05-06] MEDS ORDERED: dexAMETHasone 10 MG/ML VIAL IV ONE (17:15)
--- NOTE | 2021-05-06 17:32 | P.HP ---
Certification for Inpatient Patient admitted to: Inpatient With expected LOS: >2 Midnights Patient will require the following post-hospital care: None Practitioner: I am a practitioner with admitting privileges, knowledge of patient current condition, hospital course, and medical plan of care. Services: Services provided to patient in accordance with Admission requirements found in Title 42 Section 412.3 of the Code of Federal Regulations Patient History Date of Service: 05/06/21 Primary Care Provider: Cecelia Reason for admission: Hyperosmolar non ketotic acidosis, copd exacerbation History of Present Illness: Patient is an office patient. Came to the office today feeling like his blood sugars are elevated. He has not gotten the insulin, farxiga or inhalers I had ordered. Continues to smoke. He denied this but his silently states that he does smoke. The patient had audible wheezing. the patient blood sugar in the office was 555 via finger stick. The patient was sent to the hospital. The patient was not in DKA. He was still in the 500's elevated wbc. Negative CXR Allergies pseudoephedrine [From Actifed] Adverse Reaction (Verified 11/26/20 22:26) knock me out triprolidine [From Actifed] Adverse Reaction (Verified 11/26/20 22:26) knock me out Home Medications: Insulin 70/30 NPH/Reg Human [Novolin 70/30*] 20 unit SQ BID 11/27/20 Spironolactone [Aldactone*] 1 tab PO BID 11/27/20 Arformoterol Tartrate [Brovana] 15 mcg NEB BIDRESP vial.neb 12/01/20 Lisinopril [Zestril] 2.5 mg PO DAILY 30 Days #30 tablet 12/01/20 carvediloL [Coreg*] 6.25 mg PO BID 30 Days #60 tab 12/01/20 Levalbuterol [Xopenex*] 0.63 mg NEB [id number] PRN 30 Days #120 vial 12/09/20 Nicotine [Nicoderm*] 21 mg TD DAILY 30 Days #30 patch.td24 12/09/20 Pregabalin [Lyrica*] 75 mg PO BEDTIME 90 Days #90 tab 12/09/20 Aspirin [Adult Low Dose Aspirin EC] 81 mg PO BID 02/03/21 Atorvastatin Calcium [Lipitor] 40 mg PO BEDTIME 02/03/21 Gabapentin 300 ng PO DAILY 02/03/21 - Past Medical/Surgical History Diabetic: Yes -: T2DM -: bronchitis -: CHF -: COPD -: leg reconstruction -: sx on right leg -: sx left foot -: sx left side of the body Psychosocial/ Personal History: Unemployed due to back pain. Lives at home with . - Family History Mother -: Cancer Notes: asbestosis Brother -: Diabetes, Cancer Notes: asbestosis Father -: Diabetes - Social History Alcohol use: No CD- Drugs: No Caffeine use: Yes Review of Systems Respiratory: Shortness of Breath Gastrointestinal: Nausea Physical Examination - Physical Exam General: Alert, In no apparent distress HEENT: Atraumatic, PERRLA, Mucous membr. moist/pink, EOMI, Sclerae nonicteric Neck: Supple, 2+ carotid pulse no bruit, No LAD, Without JVD or thyroid abnormality Respiratory: Diminished, Expiratory wheezes Cardiovascular: Regular rate/rhythm, Normal S1 S2 Gastrointestinal: Normal bowel sounds, No tenderness Musculoskeletal: No tenderness Integumentary: No rashes Neurological: Normal gait, Normal speech, Normal strength at 5/5 x4 extr, Normal tone, Normal affect Lymphatics: No axilla or inguinal lymphadenopathy - Studies Laboratory Data (last 24 hrs) 05/06/21 15:51: PT 9.8, INR 0.89, APTT 31.1 05/06/21 15:51: Sodium 132 L, Potassium 5.2 H, BUN 41 H, Creatinine 1.85 H, Glucose 564 H*, Total Bilirubin 0.2, AST 28, ALT 33, Alkaline Phosphatase 147 H 05/06/21 15:51: WBC 16.20 H, Hgb 12.1 L, Hct 37.3 L, Plt Count 309 Assessment and Plan - Problems (Diagnosis) (1) Hyperosmolar non-ketotic state due to type 2 diabetes mellitus Current Visit: Yes Status: Acute Plan: Will start the patient on lantus and slididng scale. with iv fluids. (2) COPD exacerbation Current Visit: No Status: Acute Plan: will give one dose of sterods and strart the patient on levalbuterol (3) Chronic kidney disease, stage 3 Current Visit: No Status: Chronic Plan: will start the patient on iv fluids. Will continue monitoring his creatine. (4) Nicotine dependence Current Visit: No Status: Chronic Plan: will start a nicotine patch on the patient Qualifiers: Nicotine product type: cigarettes - Advance Directives Does patient have a Living Will: No Does patient have a Durable POA for Healthcare: No
[2021-05-06] MEDS ORDERED: D10W 125 ML IV PRN (17:44)
[2021-05-06] MEDS ORDERED: ALBUTEROL 2.5 MG/3 ML NEB SOL NEB PRN (17:45)
[2021-05-07] MEDS: NA CHLORIDE 0.9% 1,000 ML IV SCH ×2 (00:07→05:27)
[2021-05-07] MEDS: PREGABALIN 75 MG CAP PO SCH ×2 (00:07→20:57)
[2021-05-07] MEDS: SPIRONOLACTONE 25 MG TABLET PO SCH ×3 (00:07→20:56)
[2021-05-07 01:21] VITALS: BMI 39.9
[2021-05-07] MEDS: INSULIN -REGULAR HUMAN 50 UNIT/0.5 ML ML SQ SCH ×6 (01:30→20:59)
[2021-05-07 03:49] LABS: Absolute Lymphocytes (CBC) 1.4 K/uL (0.7-4.9); Hematocrit 37.2 % (39.6-49.0); Lymphocytes % 8.5 % (15.3-44.8); MPV 8.9 fL (7.6-11.3); RBC Red Blood Cell Count 3.93 M/uL (4.33-5.43)
[2021-05-07 04:08] LABS: Blood Morphology Comment NOT SEEN (NOT SEEN); Platelet Estimate ADEQ
[2021-05-07 04:25] LABS: Albumin 3.1 g/dL (3.4-5.0); Bilirubin Total 0.3 mg/dL (0.2-1.0); Potassium 5.2 mmol/L (3.5-5.1); Protein, Total 7.3 g/dL (6.4-8.2); Thyroid Stimulating Hormone 0.815 uIU/mL (0.360-3.740)
[2021-05-07] MEDS: INSULIN GLARGINE 100 UNIT/ML SQ SCH (09:17)
[2021-05-07] MEDS: NICOTINE 21 MG/PAT TD SCH (09:17)
--- NOTE | 2021-05-07 09:20 | P.PN ---
Subjective Date of Service: 05/07/21 Primary Care Provider: Cecelia Chief Complaint: Hyperosmolar non ketotic acidosis, copd exacerbation Subjective: Improving Patient upset he had to be in the ER for several hours. upset that I had not seen him to the ER. Review of Systems 10-point ROS is otherwise unremarkable Respiratory: Shortness of Breath Physical Examination - Vital Signs Temperature: 97.9 F Blood Pressure: 138/66 Pulse: 82 Respirations: 20 Pulse Ox (%): 93 - Physical Exam General: Alert HEENT: Atraumatic, PERRLA, EOMI Neck: Supple, JVD not distended Respiratory: Diminished, Expiratory wheezes (improved from yesterday) Cardiovascular: Regular rate/rhythm, Normal S1 S2 Gastrointestinal: Normal bowel sounds, No tenderness Musculoskeletal: No tenderness Integumentary: No rashes Neurological: Normal speech, Normal tone, Normal affect Lymphatics: No axilla or inguinal lymphadenopathy - Studies Laboratory Data (last 24 hrs) 05/06/21 15:51: PT 9.8, INR 0.89, APTT 31.1 05/06/21 15:51: Sodium 132 L, Potassium 5.2 H, BUN 41 H, Creatinine 1.85 H, Glucose 564 H*, Total Bilirubin 0.2, AST 28, ALT 33, Alkaline Phosphatase 147 H 05/06/21 15:51: WBC 16.20 H, Hgb 12.1 L, Hct 37.3 L, Plt Count 309 Assessment And Plan - Current Problems (Diagnosis) (1) Hyperosmolar non-ketotic state due to type 2 diabetes mellitus Current Visit: Yes Status: Acute Plan: Will start the patient on lantus and slididng scale. with iv fluids. last cbg was in the 300's Will keep him on the floor. his a1c is over 14. Not sure if he was taking his insulin. He states that he was. Has not been to follow up in 3 months. Has not called. (2) COPD exacerbation Current Visit: No Status: Acute Plan: will give one dose of sterods and strart the patient on levalbuterol 3.19 Improving with breathing treatments. He is able to speak in full sentences. As well as argue in full sentences (3) Chronic kidney disease, stage 3 Current Visit: No Status: Chronic Plan: will start the patient on iv fluids. Will continue monitoring his creatine. (4) Nicotine dependence Current Visit: No Status: Chronic Plan: will start a nicotine patch on the patient 3.19 continues to deny smoking. However his confirmed that he does. Will continue the nicotine patch Qualifiers: Nicotine product type: cigarettes Discharge Plan: Home Plan to discharge in: 48 Hours - Code Status/Comfort Care Code Status Assessed: No Critical Care: No Time Spent Managing PTS Care (In Minutes): 20
[2021-05-07] MEDS: ALBUTEROL 2.5 MG/3 ML NEB SOL NEB PRN ×2 (09:50→21:20)
[2021-05-08 03:56] LABS: Absolute Lymphocytes (CBC) 3.4 K/uL (0.7-4.9); Hematocrit 35.7 % (39.6-49.0); Lymphocytes % 22.8 % (15.3-44.8); MPV 8.6 fL (7.6-11.3); RBC Red Blood Cell Count 3.86 M/uL (4.33-5.43)
[2021-05-08 04:12] LABS: Albumin 2.9 g/dL (3.4-5.0); Bilirubin Total 0.3 mg/dL (0.2-1.0); Potassium 4.2 mmol/L (3.5-5.1); Protein, Total 6.7 g/dL (6.4-8.2)
[2021-05-08] MEDS ORDERED: carvediloL 6.25 MG TAB PO SCH (09:00)
[2021-05-08] MEDS: INSULIN GLARGINE 100 UNIT/ML SQ SCH (09:03)
[2021-05-08] MEDS: INSULIN -REGULAR HUMAN 50 UNIT/0.5 ML ML SQ SCH (09:04)
[2021-05-08] MEDS: SPIRONOLACTONE 25 MG TABLET PO SCH (09:05)
[2021-05-08] MEDS: NICOTINE 21 MG/PAT TD SCH (09:06)
[2021-05-08 09:07] VITALS: BP 141/69
[2021-05-08 09:27] VITALS: TEMP 98.6
[2021-05-08] MEDS: ALBUTEROL 2.5 MG/3 ML NEB SOL NEB PRN (10:20)
--- NOTE | 2021-05-08 10:32 | P.DS ---
Admission Date: 05/06/21 Discharge Date: 05/08/21 Primary Care Provider: Cecelia Disposition: ROUTINE DISCHARGE Discharge Condition: GOOD Reason for Admission: Hyperosmolar non ketotic acidosis, copd exacerbation - Problems (1) Hyperosmolar non-ketotic state due to type 2 diabetes mellitus Current Visit: Yes Status: Acute (2) COPD exacerbation Current Visit: No Status: Acute (3) Chronic kidney disease, stage 3 Current Visit: No Status: Chronic (4) Nicotine dependence Current Visit: No Status: Chronic Qualifiers: Nicotine product type: cigarettes Brief History of Present Illness: Patient is an office patient. Came to the office today feeling like his blood sugars are elevated. He has not gotten the insulin, farxiga or inhalers I had ordered. Continues to smoke. He denied this but his silently states that he does smoke. The patient had audible wheezing. the patient blood sugar in the office was 555 via finger stick. The patient was sent to the hospital. The patient was not in DKA. He was still in the 500's elevated wbc. Negative CXR Hospital Course: Patient was admitted to the hospital. Started on insulin and breathing treatments. given one dose of steroids as we did not want to elevated his sugars too high. His blood cultures are still negative. The patient was a bit difficult. He states he is not smoking or drinking soda. His silently nods disagreement to both of these statements. Will not confront him on these falsehoods as it will increase family stress. The patient has a history of non compliance with his medications. Will try having him follow up and provided him with medications due to his financial difficulties. However cannot control copd if patients continue to smoke. Cannot control diabetes with patients continuing sugar sweatened beverages. Thank you for allowing me to be a part of his care. Vital Signs/Physical Exam: Temp Pulse Resp BP Pulse Ox 98.6 F 91 H 20 141/69 H 95 05/08/21 08:00 05/08/21 09:05 05/08/21 08:00 05/08/21 09:05 05/08/21 08:00 General: Alert, In no apparent distress HEENT: Atraumatic, PERRLA, EOMI Neck: Supple, JVD not distended Respiratory: Clear to auscultation bilaterally, Normal air movement Cardiovascular: Regular rate/rhythm, Normal S1 S2 Gastrointestinal: Normal bowel sounds, No tenderness Musculoskeletal: No tenderness Integumentary: No rashes Neurological: Normal speech, Normal tone, Normal affect Lymphatics: No axilla or inguinal lymphadenopathy Laboratory Data at Discharge: WBC 14.90 K/uL (4.3-10.9) H 05/08/21 03:24 Hgb 11.9 g/dL (13.6-17.9) L 05/08/21 03:24 Hct 35.7 % (39.6-49.0) L 05/08/21 03:24 Plt Count 263 K/uL (152-406) 05/08/21 03:24 PT 9.8 SECONDS (9.5-12.5) 05/06/21 15:51 INR 0.89 05/06/21 15:51 APTT 31.1 SECONDS (24.3-36.9) 05/06/21 15:51 Sodium 134 mmol/L (136-145) L 05/08/21 03:24 Potassium 4.2 mmol/L (3.5-5.1) 05/08/21 03:24 BUN 33 mg/dL (7-18) H 05/08/21 03:24 Creatinine 1.19 mg/dL (0.55-1.3) 05/08/21 03:24 Glucose 266 mg/dL (74-106) H 05/08/21 03:24 Total Bilirubin 0.3 mg/dL (0.2-1.0) 05/08/21 03:24 AST 32 U/L (15-37) 05/08/21 03:24 ALT 35 U/L (12-78) 05/08/21 03:24 Alkaline Phosphatase 92 U/L (45-117) 05/08/21 03:24 Home Medications: Spironolactone [Aldactone*] 1 tab PO BID 11/27/20 carvediloL [Coreg*] 6.25 mg PO BID 30 Days #60 tab 12/01/20 Pregabalin [Lyrica*] 75 mg PO BEDTIME 90 Days #90 tab 12/09/20 Aspirin [Adult Low Dose Aspirin EC] 81 mg PO DAILY 02/03/21 Atorvastatin Calcium [Lipitor] 40 mg PO BEDTIME 02/03/21 Gabapentin 300 mg PO DAILY 02/03/21 Albuterol Sulfate [Proair Hfa] 2 puff IH Q4HP PRN 05/07/21 Furosemide 40 mg PO DAILY 05/07/21 lisinopriL [Lisinopril] 5 mg PO DAILY 05/07/21 Albuterol Sulfate [Albuterol Sulfate 0.083% Neb Soln] 2.5 mg IH QID PRN 30 Days #30 ml 05/08/21 Insulin 70/30 NPH/Reg Human [Novolin 70/30*] 30 unit SQ BID 30 Days #1800 ml 05/08/21 Metformin HCl 1,000 mg PO BID 90 Days #180 tablet 05/08/21 New Medications: Albuterol Sulfate [Albuterol Sulfate 0.083% Neb Soln] 2.5 mg IH QID PRN 30 Days #30 ml PRN Reason: Shortness Of Breath Metformin HCl 1,000 mg PO BID 90 Days #180 tablet Insulin 70/30 NPH/Reg Human [Novolin 70/30*] 30 unit SQ BID 30 Days #1800 ml Diet: ADA Activity: Ad mikala Followup: Jay Rai MD [Primary Care Provider] - 1 Week Physician Review: Patient Assessed, Agree with Above Assessment and Plan Time spent managing pt's care (in minutes): 30
[2021-05-08 10:47] VITALS: O2SAT 95
--- NOTE | 2021-05-09 08:26 | EKG ---
Test Date: 2021-05-06 Test Time: 14:31:38 Transit Operations Supervisor: BRENT MEASUREMENT RESULTS: Intervals: Rate: 112 AR: 142 QRSD: 84 QT: 326 QTc: 444 [place]: P: 65 AR: 142 QRS: -62 T: 82 INTERPRETIVE STATEMENTS: Sinus tachycardia Left axis deviation Septal infarct, age undetermined Abnormal ECG Compared to ECG 02/03/2021 14:35:32 Myocardial infarct finding now present Electronically Signed On 05-09-21 08:21:35 CDT by Pal Pisano
== END 2021-05-08 11:45 | disposition home or self-care (01) | DRG 190 ==
LOC: ER 15:19 → ERHOLD 17:15 → 4TH 23:31
PROVIDERS: ADMIT Internal Medicine; ATTEND Internal Medicine
DX: J44.1 Chronic obstructive pulmonary disease with (acute) exacerbation (principal); E11.00 Type 2 diabetes mellitus with hyperosmolarity without nonketotic hyperglycemic-hyperosmolar coma (NKHHC); I12.9 Hypertensive chronic kidney disease with stage 1 through stage 4 chronic kidney disease, or unspecified chronic kidney disease; E11.22 Type 2 diabetes mellitus with diabetic chronic kidney disease; E11.65 Type 2 diabetes mellitus with hyperglycemia; N18.30 Chronic kidney disease, stage 3 unspecified; F17.210 Nicotine dependence, cigarettes, uncomplicated; Z79.4 Long term (current) use of insulin; Z20.822 Contact with and (suspected) exposure to COVID-19; Z91.14 Patient's other noncompliance with medication regimen
CPT/HCPCS: 36415; 71045; 80053; 82947; 83036; 83605; 83880; 84443; 84484; 85025; 85610; 85730; 87040; 93005; 94640; 96374; 96375; 99285; J2930; J7030; U0003

== ENCOUNTER 2021-06-15 20:25 | Emergency (ER) | payer OTHER ==
--- NOTE | 2021-06-15 20:44 | EDPHYS ---
Physician Documentation [facility] Name: Ernesto Lara Age: 56 yrs Sex: Male : 1965 Arrival Date: 06/15/2021 Time: 20:30 Bed 4 Private MD: ED Physician Momo Kang HPI: 06/15 20:34 This 56 yrs old Male presents to ER via Unassigned with complaints of sob, fernando cpr. 20:34 The patient has shortness of breath at rest. Onset: The symptoms/episode began/occurred fernando just prior to arrival. Duration: The symptoms are continuous, and are markedly worse than the original presentation. The patient's shortness of breath has no apparent modifying factors. Preceding the arrest, the patient was dyspneic. The arrest occurred at home. Pre-hospital course: The arrest was witnessed Bystanders at the scene performed CPR. EMS care prior to arrival: initiation of ACLS, peripheral IV, 12 minutes elapsed prior to ACLS. Associated signs and symptoms: Pertinent positives: This patient does not have any pertinent positive signs or symptoms associated with shortness of breath. Severity of symptoms: At their worst the symptoms were incapacitating just prior to arrival. It is unknown whether or not the patient has had similar symptoms in the past. - Immunization history:: Adult Immunizations unknown. - Family history:: not pertinent. - Social history:: Smoking status: unknown. ROS: 20:34 Constitutional: Negative for fever, chills, and weight loss, Eyes: Negative for injury, fernando pain, redness, and discharge, ENT: Negative for injury, pain, and discharge, Neck: Negative for injury, pain, and swelling, Cardiovascular: Negative for chest pain, palpitations, and edema, Abdomen/GI: Negative for abdominal pain, nausea, vomiting, diarrhea, and constipation, Back: Negative for injury and pain, : Negative for injury, bleeding, discharge, and swelling, MS/Extremity: Negative for injury and deformity, Skin: Negative for injury, rash, and discoloration, Neuro: Negative for headache, weakness, numbness, tingling, and seizure, Psych: Negative for depression, anxiety, suicide ideation, homicidal ideation, and hallucinations, Allergy/Immunology: Negative for hives, rash, and allergies, Endocrine: Negative for neck swelling, polydipsia, polyuria, polyphagia, and marked weight changes, Hematologic/Lymphatic: Negative for swollen nodes, abnormal bleeding, and unusual bruising. 20:34 Respiratory: Positive for shortness of breath, at rest. intubated and with pulse on arrival to room #4. Exam: 20:34 Constitutional: This is a well developed, well nourished patient who is awake, alert, fernando and in no acute distress. Head/Face: Normocephalic, atraumatic. Chest/axilla: Normal chest wall appearance and motion. Nontender with no deformity. No lesions are appreciated. MS/ Extremity: Pulses equal, no cyanosis. Neurovascular intact. Full, normal range of motion. 20:34 Eyes: Pupils: Corneas: are normal, Sclera: no appreciated abnormality, Lids and lashes: appear normal. 20:34 Eyes: Pupils: equal, right pupil is approximately 3 mm(s), left pupil is approximately 3 mm(s). 20:34 Cardiovascular: Rate: normal, Rhythm: regular, Pulses: Pulses are 4+ in bilateral radial, brachial, femoral, popliteal, posterior tibial and and dorsalis pedis arteries.. Edema: is not appreciated, JVD: is not appreciated. 20:34 Respiratory: intubated. 20:34 Abdomen/GI: Inspection: distension, Bowel sounds: diminished, Palpation: soft, Liver: no appreciated palpable abnormalities, Hernia: not appreciated. 21:19 ECG was reviewed by the Attending Physician. [facility] Vital Signs: 20:27 BP 145 / 129; Pulse 109; Resp 19 A; Pulse Ox 100% on ETT ambu; al4 20:31 BP 99 / 66; Pulse 90; Resp 17 A; Pulse Ox 100% on ETT ambu; al4 20:34 BP 88 / 68; Pulse 84; Resp 18 A; Pulse Ox 100% on ETT ambu; al4 20:37 BP 76 / 55; Pulse 86; Resp 21 A; Pulse Ox 97% on ETT vent; al4 20:39 BP 64 / 46; Pulse 86; Resp 18 A; Pulse Ox 97% on ETT vent; al4 21:06 BP 69 / 52; Pulse 89; Resp 18 A; Temp 94.1(C); Pulse Ox 100% on 40% FiO2 ETT vent; as6 Weight 106.59 kg; 21:16 BP 70 / 52; Pulse 79; Resp 18 A; Temp 95.9(C); Pulse Ox 98% on 40% FiO2 ETT vent; as6 22:02 Pulse 94; Resp 18 A; Temp 97.3(C); Pulse Ox 100% on 40% FiO2 ETT vent; as6 22:03 BP 107 / 36; as6 22:22 BP 99 / 36; Pulse 98; Resp 18 A; Temp 97.5(C); Pulse Ox 100% on 40% FiO2 ETT vent; as6 Procedures: 21:28 Central Line: the site was prepped with Betadine, in sterile fashion, a triple lumen fernando catheter was inserted, in the right femoral vein, in 1 attempts. placement was verified, by blood return, the site was dressed with using sterile technique, the patient tolerated the procedure, well. MDM: 20:30 Patient medically screened. fernando 20:39 Differential diagnosis: CHF exacerbation, Chronic Obstructive Pulmonary Disease fernando arrythmia, cardiac arrest, respiratory arrest, renal failure, Myocardial Infarction pneumonia, pulmonary edema, Pulmonary Embolism reactive airway disease. Antibiotic administration: zosyn. The patient's Wells Deep Vein Thrombosis Score was calculated as follows: Total Score: 0-2 Pts- Low Risk. The patient's pulmonary embolism risk score was calculated as follows: Total Score: 0-2 points. This patient was found to be at low risk for a pulmonary embolism by using the Well's assessment criteria. Immunization status: Influenza vaccine: Data reviewed: vital signs, nurses notes, lab test result(s), EKG, radiologic studies, CT scan, plain films. Data interpreted: ekg monitor: rate is 68 beats/min, rhythm is regular, Pulse oximetry: on ventilator is 97 %. Test interpretation: by ED physician or midlevel provider: ECG, plain radiologic studies. Counseling: I had a detailed discussion with the patient and/or guardian regarding: the historical points, exam findings, and any diagnostic results supporting the discharge/admit diagnosis, lab results, radiology results, the need to transfer to another facility, for higher level of care, [facility] does not immediately have the required specialist. 06/15 20:34 Order name: Basic Metabolic Panel; Complete Time: 21:46 fernando 06/15 20:34 Order name: CBC with Diff; Complete Time: 22:04 fernando 06/15 20:34 Order name: LFT's; Complete Time: 21:46 fernando 06/15 20:34 Order name: Magnesium; Complete Time: 21:46 [facility] 06/15 20:34 Order name: NT PRO-BNP; Complete Time: 21:46 [facility] 06/15 20:34 Order name: PT-INR; Complete Time: 21:46 [facility] 06/15 20:34 Order name: Troponin HS; Complete Time: 21:46 [facility] 06/15 20:34 Order name: Blood Culture Adult (2) 06/15 20:34 Order name: Lactate; Complete Time: 21:46 [facility] 06/15 20:34 Order name: Procalcitonin; Complete Time: 22:49 [facility] 06/15 20:34 Order name: ABG; Complete Time: 21:14 [facility] 06/15 20:34 Order name: COVID-19/FLU A+B (Document "Date of Onset" if Symptomatic); Complete Time: [facility] 21:46 06/15 21:58 Order name: CBC Smear Scan; Complete Time: 22:04 [facility] 06/15 21:58 Order name: Urine Dipstick-Ancillary; Complete Time: 22:04 [facility] 06/15 20:34 Order name: XRAY Chest (1 view); Complete Time: 21:46 [facility] 06/15 21:40 Order name: Head C Spine Cap Wo Con; Complete Time: 22:14 [facility] 06/15 20:34 Order name: EKG; Complete Time: 20:35 [facility] 06/15 20:34 Order name: Cardiac monitoring; Complete Time: 20:53 [facility] 06/15 20:34 Order name: EKG - Nurse/Tech; Complete Time: 21:04 [facility] 06/15 20:34 Order name: IV Saline Lock; Complete Time: 20:53 [facility] 06/15 20:34 Order name: Labs collected and sent; Complete Time: 20:54 [facility] 06/15 20:34 Order name: O2 Per Protocol; Complete Time: 20:51 [facility] 06/15 20:34 Order name: O2 Sat Monitoring; Complete Time: 20:51 [facility] 06/15 20:34 Order name: Urine Dipstick-Ancillary (obtain specimen); Complete Time: 21:21 [facility] 06/15 20:34 Order name: Hernández; Complete Time: 21:16 [facility] 06/15 20:34 Order name: Central Line Kit; Complete Time: 20:54 [facility] 06/15 21:16 Order name: Misc. Order: WARMING BLANKETS, AKIKO fernando 06/15 21:25 Order name: Restraint:Violent/Self Destructive (Adult:18yo or >) [facility] EC: Rate is 87 beats/min. Rhythm is regular. AL interval is normal. QRS interval is normal. fernando QT interval is normal. No Q waves. T waves are Normal. No ST changes noted. Clinical impression: NSR w/ Non-specific ST/T Changes and No evidence of ischemia. Interpreted by me. Reviewed by me. Administered Medications: 20:24 Drug: EPINEPHrine 0.1mg/mL 1:10,000 1 mg Route: IVP; Site: left antecubital; as6 23:05 Follow up: Response: No adverse reaction as6 20:49 Drug: Levophed (norepinephrine) (4 mg/250 mL D5W 4 mcg/min Route: IV; Rate: calculated as6 rate; Site: right femoral; 23:03 Follow up: IV Status: Infusion continued upon transfer as6 21:15 Drug: SOLU-Medrol (methylPrednisoLONE) 125 mg Route: IVP; Site: left antecubital; as6 23:01 Follow up: Response: No adverse reaction as6 21:15 Drug: Zosyn (piperacillin-tazobactam) 3.375 grams Route: IVPB; Infused Over: 60 mins; as6 Site: left antecubital; 23:03 Follow up: Response: No adverse reaction; IV Status: Completed infusion; IV Intake: as6 100ml 21:15 Drug: NS 0.9% 500 ml Route: IV; Rate: bolus; Site: left antecubital; as6 23:04 Follow up: Response: No adverse reaction; IV Status: Completed infusion; IV Intake: as6 500ml 21:15 Drug: Pepcid (famotidine) 20 mg Route: IVP; Site: left antecubital; as6 23:03 Follow up: Response: No adverse reaction :26 Drug: NS 0.9% 1000 ml Route: IV; Rate: 125 ml/hr; Site: right femoral; as6 23:04 Follow up: IV Status: Infusion continued upon transfer as08 09:27 Drug: Versed (midazolam) 2 mg Route: IVP; Site: right femoral; as6 23:03 Follow up: Response: No adverse reaction as6 21:27 Drug: Versed (midazolam) 2 mg Route: IVP; Site: right femoral; as6 23:03 Follow up: Response: No adverse reaction as6 22:15 Drug: Albuterol - atroVENT (ipratropium) (3:1) (2.5 mg - 0.5 mg) 3 ml Route: Nebulizer; as6 23:01 Follow up: Response: No adverse reaction as6 22:23 Drug: Versed (midazolam) 2 mg Route: IVP; Site: right femoral; as6 23:02 Follow up: Response: No adverse reaction as6 22:24 Drug: Versed (midazolam) 2 mg Route: IVP; Site: right femoral; as6 23:01 Follow up: Response: No adverse reaction as6 22:50 Drug: Kayexalate (polystyrene) 60 grams Route: PO; as6 23:02 Follow up: Response: No adverse reaction as6 22:51 Drug: Calcium Gluconate 1 grams Route: IVPB; Infused Over: 10 mins; Site: right femoral;as6 23:02 Follow up: Response: No adverse reaction; IV Status: Completed infusion; IV Intake: as6 100ml 22:51 Drug: Sodium Bicarbonate 1 amp Route: IVP; Site: right femoral; as6 23:02 Follow up: Response: No adverse reaction as6 22:52 Not Given (Other Intervention Used): NS 0.9% 1000 ml IV at 1 bolus Per protocol; 1000 as6 mL bolus 22:52 Drug: D50W 50 ml Route: IVP; Site: right femoral; as6 23:02 Follow up: Response: No adverse reaction as6 22:55 Drug: Insulin Regular Human 10 units {Co-Signature: alAngel Luis (Joe Lange} Route: as6 IVP; Site: right antecubital; 23:02 Follow up: Response: No adverse reaction as6 Disposition Summary: 06/15/21 20:44 Transfer Ordered Transfer Location: [facility] fernando Reason: Higher level of care fernando Condition: Serious fernando Problem: new fernando Symptoms: have improved fernando Accepting Physician: to [facility](06/15/21 23:05) as6 Diagnosis - Hypotension, unspecified fernando - Acute respiratory failure - ROSC, HYPOTHERMIA(06/15/21 21:16) fernando - Unspecified combined systolic (congestive) and diastolic (congestive) heart failure fernando - Hyperkalemia fernando - Acute kidney failure, unspecified fernando - Elevated white blood cell count fernando - Acute and chronic respiratory failure with hypercapnia fernando - Acidosis fernando - Pneumonia, unspecified organism - aspiration fernando Forms: - Medication Reconciliation Form fernando - SBAR form fernando Signatures: Dispatcher [employer] EDMomo Jung MD MD cha Attema, Lee, COMPUTER TRAINING SPECIALIST-C COMPUTER TRAINING SPECIALIST-Cla1 Govind Ashton RN RN as6 Joe Cortez al4 Corrections: (The following items were deleted from the chart) 21:16 20:44 to [facility] fernando fernando 21:16 20:44 Acute respiratory failure - ROSC fernando fernando 21:50 21:16 to [facility] fernando fernando 22:07 21:50 to [facility] fernando fernando 22:41 22:07 to [facility] fernando fernando 22:52 22:41 to [facility] fernando fernando 23:05 22:52 to [facility] fernando as6
[2021-06-15] MEDS ORDERED: NOREPINEPHRINE 4mg/D5W 250mL 4 MG/250 ML BAG IV ONE (20:48)
[2021-06-15 20:58] LABS: Arterial Blood Carboxyhemoglob 5.5 % (0-1.5); Blood Gas Oxyhemoglobin 93.3 % (94-97); Blood O2 Saturation 99.8 % (92-98.5)
[2021-06-15] MEDS ORDERED: NA CHLORIDE 0.9% 500 ML ONE (21:02)
[2021-06-15] MEDS ORDERED: NA CHLORIDE 0.9% 1,000 ML ONE (21:02)
[2021-06-15] MEDS ORDERED: METHYLPREDNISOLONE 125 MG INJ ONE (21:02)
[2021-06-15] MEDS ORDERED: NA CHLORIDE 0.9% 100 ML IV ONE (21:03)
[2021-06-15] MEDS ORDERED: PIPERACIL/TAZO 3.375 GM VIAL IV ONE (21:03)
[2021-06-15] MEDS ORDERED: FAMOTIDINE 20 MG/2 ML VIAL IV ONE (21:03)
[2021-06-15 21:16] LABS: Hematocrit 39.8 % (39.6-49.0); Lymphocytes % 34.1 % (15.3-44.8); MPV 9.5 fL (7.6-11.3); Protime INR 0.88; RBC Red Blood Cell Count 4.11 M/uL (4.33-5.43)
[2021-06-15 21:29] LABS: Albumin 3.2 g/dL (3.4-5.0); Bilirubin Direct 0.1 mg/dL (0-0.2); Bilirubin Total 0.2 mg/dL (0.2-1.0); Magnesium 2.3 mg/dL (1.8-2.4); Potassium 5.4 mmol/L (3.5-5.1); Protein, Total 7.7 g/dL (6.4-8.2)
[2021-06-15] MEDS ORDERED: MIDAZOLAM HCL 2 MG/2 ML INJ ONE ×2 (21:29→22:20)
--- NOTE | 2021-06-15 21:35 | RAD REPORT ---
EXAM DESCRIPTION: RAD - Chest Single View - 06/15/2021 9:02 pm CLINICAL HISTORY: COPD COMPARISON: Chest Single View dated 05/06/2021; Chest Single View dated 02/03/2021; Chest Pa And Lat (2 Views) dated 02/02/2021; Chest Single View dated 11/26/2020 FINDINGS: Lines: Endotracheal tube is at the clavicular heads. Suggest advancing by 3 cm which shoul d place the tip at the aortic arch enteric tube goes below the diaphragm. . Lungs: Pulmonary vascular congestion. No consolidation. Pleural: No significant pleural effusions or pneumothorax. Cardiac: Mild cardiomegaly. Bones: No acute fractures. Other: Defibrillator pads. IMPRESSION: Vascular congestion. Endotracheal tube at the clavicular heads. Suggest advancing by 3 c m.
[2021-06-15 21:36] LABS: Troponin High Sensitivity 65.6 pg/mL (<58.9)
[2021-06-15 21:46] LABS: SARS-COV-2 RT PCR NEGATIVE (NEGATIVE)
[2021-06-15 21:57] LABS: Blood Morphology Comment NOT SEEN (NOT SEEN); Platelet Estimate ADEQ; White Blood Cell Scan OK (OK)
[2021-06-15 21:57] LABS: Urine Blood 3+ (Negative); Urine Glucose 1+ (Negative); Urine Protein 2+ (Negative); Urine Specific Gravity 1.025 (1.005-1.030)
--- NOTE | 2021-06-15 22:11 | RAD REPORT ---
EXAM DESCRIPTION: CT - Head C Spine Cap Wo Con - 06/15/2021 9:59 pm CLINICAL HISTORY: CPR, UNRESPONSIVE, RESPIRATORY FAILURE COMPARISON: CT CHEST,ABD,PELVIS W/O dated 11/27/2020 TECHNIQUE: CT head without contrast. CT cervical spine without contrast with coronal and sagittal reformatted images. CT chest, abdomen and pelvis without contrast with coronal and sagittal reformatted images of the spi ne. All CT scans are performed using dose optimization technique as appropriate and may include automated exposure control or mA/KV adjustment according to patient size. FINDINGS: CT HEAD WITHOUT CONTRAST: No intracranial hemorrhage, hydrocephalus or extra-axial fluid collection. No areas of brain edema o r midline shift. Ethmoid air cell thickening. This may be secondary to presence of the endotracheal tube. Left mastoid fluid. CT CERVICAL SPINE WITHOUT CONTRAST: No fracture or subluxation. The prevertebral soft tissues are normal in thickness.Mild multilevel ce rvical spondylosis which is most advanced at the C5-6 level were there is moderate bilateral neural f oraminal narrowing secondary to uncovertebral joint hypertrophy and posterior disc osteophyte complex . Mild central spinal stenosis is also likely present. . CT CHEST, ABDOMEN, PELVIS WITHOUT CONTRAST: NOTE: Lack of contrast is a significant limitation in the assessment of trauma related findings. Spec ifically, solid organ, vascular and bowel evaluation is significantly limited. Mild debris noted within the trachea. Minimal dependent opacities. The endotracheal tube is just abov e the aortic arch in satisfactory position. Bronchial wall thickening is noted. No evidence of edema or pneumonia. No consolidative airspace disease. No pneumothorax or significant pleural effusion. The heart size is normal. No pericardial effusion. No focal liver lesions are identified. The adrenal glands are unremarkable. 9 mm stone in the lower p ole right kidney. Too small to characterize mildly exophytic lesion along the upper pole left kidney is likely a cyst. Asymmetric enlargement left kidney is similar. No hydronephrosis. Hernández catheter wi thin a decompressed bladder. The prostate unremarkable. No bowel obstruction is identified. Pancreas is unremarkable. Spleen is within normal limits. No adrenal masses. The gallbladder is decompressed. No acute fractures identified. Remote left-sided rib fractures seen. Mild scattered degenerative linda ges are present in the thoracic and lumbar spine. Right femoral venous line. IMPRESSION: 1. No acute intracranial abnormality. 2. No cervical spine fracture or traumatic malalignment. 3. Minimal aspirated contents within the trachea and lower lungs but otherwise no acute findings with in the chest. 4. No acute findings within the abdomen or pelvis.
[2021-06-15] MEDS ORDERED: ALBUTEROL 2.5 MG/3 ML NEB SOL ONE (22:14)
[2021-06-15] MEDS ORDERED: IPRATROPIUM BROM 0.5MG/2.5ML ONE (22:14)
[2021-06-15] MEDS ORDERED: SOD POLYSTYREN SUL 15 GM/60 ML UCUP ONE (22:44)
[2021-06-15] MEDS ORDERED: INSULIN -REGULAR HUMAN 50 UNIT/0.5 ML ML ONE (22:44)
[2021-06-15] MEDS ORDERED: SODIUM BICARB 50 MEQ/50ML VIAL ONE (22:45)
[2021-06-15] MEDS ORDERED: CALCIUM GLUCONATE 1 GM IVPB 1 GM/50 ML BAG IV ONE (22:45)
--- NOTE | 2021-06-15 23:05 | ER ---
Nurse's Notes [facility] Name: Ernesto Lara Age: 56 yrs Sex: Male : 1965 Arrival Date: 06/15/2021 Time: 20:30 Bed 4 Private MD: Diagnosis: Acute respiratory failure-ROSC, HYPOTHERMIA;Hypotension, unspecified;Unspecified combined systolic (congestive) and diastolic (congestive) heart failure;Hyperkalemia;Acute kidney failure, unspecified;Elevated white blood cell count;Acute and chronic respiratory failure with hypercapnia;Acidosis;Pneumonia, unspecified organism-aspiration Presentation: 06/15 20:22 Chief complaint: EMS states: witnessed cardiac arrest - family started CPR. Care prior al4 to arrival: CPR via thumper. Compressions began prior to arrival. 20:22 Method Of Arrival: EMS: [facility] al4 20:22 Acuity: ROJELIO 1 al4 22:30 Coronavirus screen: Client presents with at least one sign or symptom that may indicate as6 coronavirus-19. Ebola Screen: Unable to complete the Ebola screening because: Patient is intubated. Initial Sepsis Screen: Does the patient meet any 2 criteria? No. Patient's initial sepsis screen is negative. Does the patient have a suspected source of infection? No. Patient's initial sepsis screen is negative. Risk Assessment: Do you want to hurt yourself or someone else? Unable to obtain. Onset of symptoms was June 15, 2021. Triage Assessment: 21:17 General: Appears ill, unkempt. as6 - Immunization history:: Adult Immunizations unknown. - Family history:: not pertinent. - Social history:: Smoking status: unknown. Screenin:08 Abuse screen: pt intubated. Nutritional screening: No deficits noted. Tuberculosis as6 screening: No symptoms or risk factors identified. Fall Risk None identified. Assessment: 20:22 CPR assessment: unresponsive, pupils fixed \\T\\ dilated, intubated, Ambu ventilation, al4 pulses present w/ compressions. 20:22 Cardiac rhythm is PEA. General: Behavior is unresponsive. Neuro: Level of Consciousness al4 is unresponsive, Pupils are fixed. Cardiovascular: Rhythm is PEA. Respiratory: intubated and ambu bag. 20:22 Reassessment: Dr. Kang, THROW OUT CLERK Jayesh Macias, Govind RNElly RN, Armida RN, Respiratory al4 at bedside upon patient arrival. 21:07 Pain: Unable to use pain scale. Patient is intubated. Patient is unresponsive. as6 Respiratory: Ventilator assessment: ET Tube: 7.5 Ventilator Mode: Assist Control (AC) Tidal Volume: 500 Respiratory Rate: 18 FiO2: 40 PEEP: 0 HOB > 30 degrees. GI: Abdomen is distended. 21:18 Reassessment: WBC 20.7 - Dr. Kang aware. al4 Vital Signs: 20:27 BP 145 / 129; Pulse 109; Resp 19 A; Pulse Ox 100% on ETT ambu; al4 20:31 BP 99 / 66; Pulse 90; Resp 17 A; Pulse Ox 100% on ETT ambu; al4 20:34 BP 88 / 68; Pulse 84; Resp 18 A; Pulse Ox 100% on ETT ambu; al4 20:37 BP 76 / 55; Pulse 86; Resp 21 A; Pulse Ox 97% on ETT vent; al4 20:39 BP 64 / 46; Pulse 86; Resp 18 A; Pulse Ox 97% on ETT vent; al4 21:06 BP 69 / 52; Pulse 89; Resp 18 A; Temp 94.1(C); Pulse Ox 100% on 40% FiO2 ETT vent; as6 Weight 106.59 kg; 21:16 BP 70 / 52; Pulse 79; Resp 18 A; Temp 95.9(C); Pulse Ox 98% on 40% FiO2 ETT vent; as6 22:02 Pulse 94; Resp 18 A; Temp 97.3(C); Pulse Ox 100% on 40% FiO2 ETT vent; as6 22:03 BP 107 / 36; as6 22:22 BP 99 / 36; Pulse 98; Resp 18 A; Temp 97.5(C); Pulse Ox 100% on 40% FiO2 ETT vent; as6 ED Course: 20:22 engine monitor on. Pulse ox on. NIBP on. al4 20:28 Inserted saline lock: 18 gauge in left antecubital area, using aseptic technique. Blood as6 collected. 20:30 Patient arrived in ED. ds4 20:30 Momo Kang MD is Attending Physician. fernando 20:30 Inserted saline lock: 20 gauge in right antecubital area, using aseptic technique. as6 Blood collected. 20:31 BGL 225. al4 20:33 Assisted provider with central line placement. Set up central line tray. Triple lumen as6 line placed in right femoral. Placement verified by blood return, Dressed with Tegaderm, Blood was collected. Patient tolerated well. 20:37 NGT: inserted 12 Fr. other oral. as6 20:50 Govind Ashton, RN is Primary Nurse. as6 20:54 Triage completed. al4 21:04 XRAY Chest (1 view) In Process Unspecified. EDMS 21:07 COVID-19/FLU A+B (Document "Date of Onset" if Symptomatic) Sent. as6 21:09 Arm band placed on. as6 21:09 Placed in gown. Bed in low position. Call light in reach. Side rails up X2. Warm as6 blanket given. 21:20 Hernández cath inserted, using sterile technique, 16 Fr., by occupational health physiotherapist, balloon inflated, to as6 gravity drainage, urine specimen collected. 22:00 Head C Spine Cap Wo Con In Process Unspecified. EDMS 22:32 Patient transferred, IV remains in place. as6 Administered Medications: 20:24 Drug: EPINEPHrine 0.1mg/mL 1:10,000 1 mg Route: IVP; Site: left antecubital; as6 23:05 Follow up: Response: No adverse reaction as6 20:49 Drug: Levophed (norepinephrine) (4 mg/250 mL D5W 4 mcg/min Route: IV; Rate: calculated as6 rate; Site: right femoral; 23:03 Follow up: IV Status: Infusion continued upon transfer as6 21:15 Drug: SOLU-Medrol (methylPrednisoLONE) 125 mg Route: IVP; Site: left antecubital; as6 23:01 Follow up: Response: No adverse reaction as6 21:15 Drug: Zosyn (piperacillin-tazobactam) 3.375 grams Route: IVPB; Infused Over: 60 mins; as6 Site: left antecubital; 23:03 Follow up: Response: No adverse reaction; IV Status: Completed infusion; IV Intake: as6 100ml 21:15 Drug: NS 0.9% 500 ml Route: IV; Rate: bolus; Site: left antecubital; as6 23:04 Follow up: Response: No adverse reaction; IV Status: Completed infusion; IV Intake: as6 500ml 21:15 Drug: Pepcid (famotidine) 20 mg Route: IVP; Site: left antecubital; as6 23:03 Follow up: Response: No adverse reaction as6 21:26 Drug: NS 0.9% 1000 ml Route: IV; Rate: 125 ml/hr; Site: right femoral; as6 23:04 Follow up: IV Status: Infusion continued upon transfer as6 21:27 Drug: Versed (midazolam) 2 mg Route: IVP; Site: right femoral; as6 23:03 Follow up: Response: No adverse reaction as6 :27 Drug: Versed (midazolam) 2 mg Route: IVP; Site: right femoral; as6 23:03 Follow up: Response: No adverse reaction as6 22:15 Drug: Albuterol - atroVENT (ipratropium) (3:1) (2.5 mg - 0.5 mg) 3 ml Route: Nebulizer; as6 23:01 Follow up: Response: No adverse reaction as6 22:23 Drug: Versed (midazolam) 2 mg Route: IVP; Site: right femoral; as6 23:02 Follow up: Response: No adverse reaction as6 22:24 Drug: Versed (midazolam) 2 mg Route: IVP; Site: right femoral; as6 23:01 Follow up: Response: No adverse reaction as6 22:50 Drug: Kayexalate (polystyrene) 60 grams Route: PO; as6 23:02 Follow up: Response: No adverse reaction as6 22:51 Drug: Calcium Gluconate 1 grams Route: IVPB; Infused Over: 10 mins; Site: right femoral;as6 23:02 Follow up: Response: No adverse reaction; IV Status: Completed infusion; IV Intake: as6 100ml 22:51 Drug: Sodium Bicarbonate 1 amp Route: IVP; Site: right femoral; as6 23:02 Follow up: Response: No adverse reaction as6 22:52 Not Given (Other Intervention Used): NS 0.9% 1000 ml IV at 1 bolus Per protocol; 1000 as6 mL bolus 22:52 Drug: D50W 50 ml Route: IVP; Site: right femoral; as6 23:02 Follow up: Response: No adverse reaction as6 22:55 Drug: Insulin Regular Human 10 units {Co-Signature: al4 Bandar Cortez).} Route: as6 IVP; Site: right antecubital; 23:02 Follow up: Response: No adverse reaction as6 Intake: 23:02 IV: 100ml; Total: 100ml. as6 23:03 IV: 100ml; Total: 200ml. as6 23:04 IV: 500ml; Total: 700ml. as6 Outcome: 20:24 Outcome Resuscitation successful as6 20:24 Transferred by helicopter to [facility], Transfer form as6 completed. X-rays sent w/ patient. 20:24 critical 20:44 ER care complete, transfer ordered by MD. king 23:05 Patient left the ED. as6 Signatures: Dispatcher [employer] EDMS Momo Kang MD MD cha Swanson, Donovan ds4 Govind Ashton, NANNETTE RN as6 Joe Cortez Corrections: (The following items were deleted from the chart) 20:56 20:52 Chief complaint: EMS states: witnessed cardiac arrest - family started CPR al4 al4 20:56 20:52 Care prior to arrival: CPR via thumper al4 al4 20:56 20:52 Compressions began prior to arrival. al4 al4 20:56 20:52 Method Of Arrival: EMS: [facility] al4 al4 20:56 20:52 Acuity: ROJELIO 1 al4 al4 21:07 20:22 Cardiac rhythm is PEA al4 al4 21: 20:22 General: al4 al4 21: 20:22 Neuro: Level of Consciousness is unresponsive, al4 al4
[2021-06-16 00:22] VITALS: O2SAT 100
[2021-06-16 00:25] VITALS: BP 99/36; TEMP 97.5
== END 2021-06-15 23:05 | disposition short-term general hospital (02) ==
LOC: ER 20:25
PROC: 06HM33Z Insertion of Infusion Device into Right Femoral Vein, Percutaneous Approach (ICD-10-PCS; principal; 2021-06-15)
DX: J96.22 Acute and chronic respiratory failure with hypercapnia (principal); I50.40 Unspecified combined systolic (congestive) and diastolic (congestive) heart failure; J69.0 Pneumonitis due to inhalation of food and vomit; E87.2 Acidosis; N17.9 Acute kidney failure, unspecified; E87.5 Hyperkalemia; D72.829 Elevated white blood cell count, unspecified; T68.XXXA Hypothermia, initial encounter; I95.9 Hypotension, unspecified; Z20.822 Contact with and (suspected) exposure to COVID-19; Z78.1 Physical restraint status
CPT/HCPCS: 87040 ×2; 85025; 80048; 36415; 83735; 85610; 80076; 83605; 81003; 84484; 84145; 83880; 0240U; 70450; 71250; 72125; 71045; 94002; 82805; 36556; J1815; J2543; J2250 ×2; J0610; J7040; J7030; J2930; J3490